=== PATIENT | female | born 1935 | race Caucasian/White ===

== ENCOUNTER 2017-11-18 14:26 | Emergency (ER) | payer MEDICARE, BC ==
[2017-11-18] MEDS: PERCOCET 5MG/325MG TAB PO (16:12)
== END 2017-11-18 17:13 | disposition home or self-care (01) ==
LOC: M ED 14:26
DX: S22.42XA Multiple fractures of ribs, left side, initial encounter for closed fracture (principal); W01.198A Fall on same level from slipping, tripping and stumbling with subsequent striking against other object, initial encounter; Y92.89 Other specified places as the place of occurrence of the external cause; I10 Essential (primary) hypertension; E78.5 Hyperlipidemia, unspecified; K21.9 Gastro-esophageal reflux disease without esophagitis; J45.909 Unspecified asthma, uncomplicated; K22.70 Barrett's esophagus without dysplasia; F41.9 Anxiety disorder, unspecified; F32.9 Major depressive disorder, single episode, unspecified; Z79.899 Other long term (current) drug therapy; Z79.82 Long term (current) use of aspirin
CPT/HCPCS: 71101

== ENCOUNTER → 2018-06-17 | Outpatient (REF) | payer MEDICARE, BC ==
[~2018-06-17] MED LIST: /ESCI20TA OR; /PANT40TA OR; ALBU83IN INH; AMLO5TAB6 PO; ASPI81TA83 OR; ATIV0.5T OR; CETI10TA OR; CETI10TA PO; COZA100T OR; DULE200A IN; FISH100049 PO; FISH300C2 OR; FURO40TA2 PO; GLUC500T OR; LESC20CA OR; LEXA1TAB PO; LORA0.5T11 PO; NORV5TAB OR; PERC5TAB12 PO; PRESCAP PO; PRIL40CA OR; REME15TA OR; SING10TA31 OR; VENTAER IN; VESI10TA2 PO; VIT D 2000 PO; VITA30004 PO; XANA0.5T OR; XOPE1.252 IN; XOPENEX; ZOCO5TAB OR; Zebeta; [UNRECOGNIZED DRUG - OTHER]; [UNRECOGNIZED DRUG - OTHER]; [UNRECOGNIZED DRUG - OTHER] OR; omacor; saphris SL
== END ==
LOC: M LAB REF 16:56
PROVIDERS: ATTEND Internal Medicine
DX: J06.9 Acute upper respiratory infection, unspecified (principal)

== ENCOUNTER → 2018-10-11 | Outpatient (REF) | payer MEDICARE, BC ==
[~2018-10-11] MED LIST changes: -/ESCI20TA OR; -/PANT40TA OR; +LEXA1TAB2 OR; +PROT1TAB2 OR
[2018-10-11 18:56] LABS: INFLUENZA A AMPLIFICATION NEGATIVE (NEGATIVE); INFLUENZA B AMPLIFICATION NEGATIVE (NEGATIVE)
== END ==
LOC: M LAB REF 16:21
PROVIDERS: ATTEND Internal Medicine
DX: R05 Cough (principal)

== ENCOUNTER → 2019-01-09 | Outpatient (REF) | payer MEDICARE, BC ==
[2019-01-09 18:21] LABS: PERCENT SATURATION 10.5 % (13.2-45.0)
== END ==
LOC: M LAB REF 17:27
PROVIDERS: ATTEND Internal Medicine
DX: D64.9 Anemia, unspecified (principal)

== ENCOUNTER → 2019-05-22 | Outpatient (REF) | payer MEDICARE, BC | LOC: M LAB REF 11:37 | PROVIDERS: ATTEND Internal Medicine | DX: D72.829 Elevated white blood cell count, unspecified (principal) ==

== ENCOUNTER 2019-05-31 10:31 | Emergency (ER) | payer MEDICARE, BC ==
[2019-05-31] MEDS ORDERED: SPIR-10 (10:49)
[2019-05-31] MEDS ORDERED: QUET1TAB7 (10:49)
--- NOTE | 2019-05-31 13:00 | REP ---
Clinical: Trauma. Fall. Comparison: 09/19/2011 . Findings: Age-related atrophy and microvascular ischemic changes are appreciated. The ventricles and sulci are symmetric. Lobato-white differentiation is maintained. There is no evidence for acute intracranial hemorrhage, mass/mass effect, pathology or infarction. No extra-axial fluid collection. Calvarium is intact. Chronic sinus disease. Impression: Age related atrophy and microvascular ischemic changes. No acute intracranial hemorrhage, infarction, or mass/mass effect. Electronically Signed by Syed Hollis MD 05/31/2019 12:51 P
--- NOTE | 2019-05-31 13:02 | REP ---
Clinical: Trauma. Fall. Technique: Axial noncontrast images from the skull base to the thoracic inlet with coronal and sagittal re-formations. Findings: Alignment and lordosis maintained. No acute fracture / compression injury or subluxation. Early advanced multilevel degenerative disc osteophyte complexes are appreciated. Posterior elements and spinous processes are intact. Spinal canal is patent. Paravertebral soft tissues are normal. Impression: Multilevel degenerative spondylosis. No acute fracture / compression injury or subluxation. Electronically Signed by Syed Hollis MD 05/31/2019 12:53 P
[2019-05-31 13:09] LABS: BASO # 0.1 10^3/uL (0.0-0.2); BASO % 0.6 % (0.0-1.0); EOS # 0.3 10^3/uL (0.0-0.5); EOS % 2.6 % (0.0-3.0); HEMATOCRIT 44.1 % (36.0-47.0); HEMOGLOBIN 14.4 g/dl (12.0-15.5); LYMPH # 2.3 10^3/uL (1.5-5.0); LYMPH % 20.3 % (24.0-44.0); MEAN CORPUSCULAR HEMOGLOBIN 28.8 pg (27.0-33.0); MEAN CORPUSCULAR HGB CONC 32.7 g/dl (32.0-36.5); MEAN CORPUSCULAR VOLUME 88.2 fl (80.0-96.0); MONO # 1.1 10^3/uL (0.0-0.8); MONO % 9.4 % (0.0-5.0); NEUTROPHILS # 7.4 10^3/uL (1.5-8.5); NEUTROPHILS % 65.4 % (36.0-66.0); PLATELET COUNT, AUTOMATED 283 10^3/uL (150-450); WHITE BLOOD COUNT 11.3 10^3/uL (4.0-10.0)
[2019-05-31 13:28] LABS: ALBUMIN 3.6 GM/DL (3.2-5.2); ALT/SGPT 20 U/L (12-78); BILIRUBIN,TOTAL 0.4 MG/DL (0.2-1.0); BLOOD UREA NITROGEN 9 MG/DL (7-18); CALCIUM LEVEL 9.4 MG/DL (8.8-10.2); CARBON DIOXIDE LEVEL 25 MEQ/L (21-32); CHLORIDE LEVEL 96 MEQ/L (98-107); GLOMERULAR FILTRATION RATE > 60.0 (>32); GLUCOSE, FASTING 109 MG/DL (70-100); POTASSIUM SERUM 4.4 MEQ/L (3.5-5.1); SODIUM LEVEL 131 MEQ/L (136-145); TOTAL PROTEIN 6.9 GM/DL (6.4-8.2)
[2019-05-31 14:02] VITALS: BP 150/72
--- NOTE | 2019-06-01 15:29 | ECGEPIP ---
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
== END 2019-05-31 14:17 | disposition home or self-care (01) ==
LOC: M ED 10:31 → EDSEX 10:31 → EDBD 10:31 → M ED 14:17
DX: R55 Syncope and collapse (principal); I44.0 Atrioventricular block, first degree; I67.82 Cerebral ischemia; M47.9 Spondylosis, unspecified; I10 Essential (primary) hypertension; J45.909 Unspecified asthma, uncomplicated; E78.5 Hyperlipidemia, unspecified; K21.9 Gastro-esophageal reflux disease without esophagitis; Z79.1 Long term (current) use of non-steroidal anti-inflammatories (NSAID); Z79.51 Long term (current) use of inhaled steroids; Z79.52 Long term (current) use of systemic steroids; Z79.899 Other long term (current) drug therapy

== ENCOUNTER → 2019-07-16 | Outpatient (REF) | payer MEDICARE, BC ==
[~2019-07-16] MED LIST changes: -LORA0.5T11 PO; +LORA0.5T5 PO; +QUET1TAB7; +SPIR-10
[2019-07-16 16:05] LABS: BASO # 0.1 10^3/uL (0.0-0.2); BASO % 0.6 % (0.0-1.0); EOS # 0.4 10^3/uL (0.0-0.5); EOS % 3.3 % (0.0-3.0); HEMATOCRIT 45.1 % (36.0-47.0); HEMOGLOBIN 14.5 g/dl (12.0-15.5); LYMPH # 2.3 10^3/uL (1.5-5.0); LYMPH % 21.5 % (24.0-44.0); MEAN CORPUSCULAR HEMOGLOBIN 29.3 pg (27.0-33.0); MEAN CORPUSCULAR HGB CONC 32.2 g/dl (32.0-36.5); MEAN CORPUSCULAR VOLUME 91.1 fl (80.0-96.0); MONO % 9.1 % (0.0-5.0); NEUTROPHILS # 6.8 10^3/uL (1.5-8.5); NEUTROPHILS % 64.5 % (36.0-66.0); PLATELET COUNT, AUTOMATED 281 10^3/uL (150-450); RED BLOOD COUNT 4.95 10^6/uL (4.00-5.40); WHITE BLOOD COUNT 10.6 10^3/uL (4.0-10.0)
[2019-07-16 16:38] LABS: ALBUMIN 3.7 GM/DL (3.2-5.2); ALT/SGPT 18 U/L (12-78); BILIRUBIN,TOTAL 0.5 MG/DL (0.2-1.0); BLOOD UREA NITROGEN 12 MG/DL (7-18); CALCIUM LEVEL 9.4 MG/DL (8.8-10.2); CARBON DIOXIDE LEVEL 27 MEQ/L (21-32); CHLORIDE LEVEL 98 MEQ/L (98-107); CREATININE FOR GFR 0.76 MG/DL (0.55-1.30); FOLATE 13.3 NG/ML; GLOMERULAR FILTRATION RATE > 60.0 (>32); GLUCOSE, FASTING 108 MG/DL (70-100); POTASSIUM SERUM 4.1 MEQ/L (3.5-5.1); RHEUMATOID FACTOR QUANT < 10.0 IU/ML (<15.0); SODIUM LEVEL 136 MEQ/L (136-145); TOTAL PROTEIN 7.2 GM/DL (6.4-8.2); VITAMIN B12 LEVEL 382 PG/ML
[2019-07-16 17:01] LABS: ERYTHROCYTE SEDIMENTATION RATE 5 mm/hr (0-30)
[2019-07-17 12:08] LABS: ALBUMIN 3.92 GM/DL (3.29-5.55); ALBUMIN % 54.4 % (55.8-66.1); ALPHA-1-GLOBULIN % 4.6 % (2.9-4.9); ALPHA-1-GLOBULINS 0.33 GM/DL (0.17-0.41); ALPHA-2-GLOBULINS 1.03 GM/DL (0.42-0.99); ALPHA-2-GLOBULINS % 14.3 % (7.1-11.8); BETA-1-GLOBULINS 0.44 GM/DL (0.28-0.60); BETA-1-GLOBULINS % 6.1 % (4.7-7.2); BETA-2-GLOBULINS 0.48 GM/DL (0.19-0.55); BETA-2-GLOBULINS % 6.6 % (3.2-6.5)
[2019-07-17 12:09] LABS: GAMMA GLOBULINS 1.01 GM/DL (0.65-1.58)
== END ==
LOC: M LABNEURO 10:28
PROVIDERS: ATTEND Psychiatry & Neurology Neurology
DX: G90.09 Other idiopathic peripheral autonomic neuropathy (principal); Z79.899 Other long term (current) drug therapy

== ENCOUNTER 2019-07-28 21:31 | Emergency (ER) | payer MEDICARE, BC ==
[~2019-07-28] VITALS: Ht 154.9 cm; Wt 72.7 kg
[2019-07-28] MEDS ORDERED: ONDANSETRON 4MG/2ML VIAL (J2405) IV ONE (23:00)
[2019-07-28 23:25] LABS: BASO # 0.1 10^3/uL (0.0-0.2); BASO % 0.7 % (0.0-1.0); EOS # 0.6 10^3/uL (0.0-0.5); EOS % 5.4 % (0.0-3.0); HEMATOCRIT 40.5 % (36.0-47.0); LYMPH # 2.7 10^3/uL (1.5-5.0); LYMPH % 24.1 % (24.0-44.0); MEAN CORPUSCULAR HEMOGLOBIN 28.8 pg (27.0-33.0); MEAN CORPUSCULAR HGB CONC 32.1 g/dl (32.0-36.5); MEAN CORPUSCULAR VOLUME 89.8 fl (80.0-96.0); MONO # 1.1 10^3/uL (0.0-0.8); MONO % 9.9 % (0.0-5.0); NEUTROPHILS # 6.5 10^3/uL (1.5-8.5); NEUTROPHILS % 58.6 % (36.0-66.0); PLATELET COUNT, AUTOMATED 250 10^3/uL (150-450); RED BLOOD COUNT 4.51 10^6/uL (4.00-5.40); WHITE BLOOD COUNT 11.1 10^3/uL (4.0-10.0)
[2019-07-28 23:46] LABS: ALBUMIN 3.4 GM/DL (3.2-5.2); ALT/SGPT 15 U/L (12-78); BILIRUBIN,DIRECT 0.2 MG/DL (0.0-0.2); BILIRUBIN,TOTAL 0.4 MG/DL (0.2-1.0); BLOOD UREA NITROGEN 18 MG/DL (7-18); CALCIUM LEVEL 9.5 MG/DL (8.8-10.2); CARBON DIOXIDE LEVEL 29 MEQ/L (21-32); CHLORIDE LEVEL 97 MEQ/L (98-107); CK-MB VALUE MASS < 1.0 NG/ML (<3.6); CPK CREATINE PHOSPHOKINASE 51 U/L (26-192); CREATININE FOR GFR 0.84 MG/DL (0.55-1.30); GLOMERULAR FILTRATION RATE > 60.0 (>32); GLUCOSE, FASTING 110 MG/DL (70-100); LIPASE 36 U/L (73-393); MB/CK RELATIVE INDEX 1.96 (< OR =4); POTASSIUM SERUM 3.4 MEQ/L (3.5-5.1); SODIUM LEVEL 134 MEQ/L (136-145); TOTAL PROTEIN 6.7 GM/DL (6.4-8.2); TROPONIN I < 0.02 NG/ML (< 0.10)
[2019-07-29 03:53] VITALS: BP 152/70
--- NOTE | 2019-07-29 05:58 | ECGEPIP ---
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
[2019-07-29] MEDS ORDERED: OCUVTAB4 PO (15:48)
[2019-07-29] MEDS ORDERED: FURO40TA2 PO (15:48)
[2019-07-29] MEDS ORDERED: VITA30004 PO (15:48)
[2019-07-29] MEDS ORDERED: ESCI20TA PO (15:48)
[2019-07-29] MEDS ORDERED: LEXA5TAB13 PO (15:48)
[2019-07-29] MEDS ORDERED: ALB2.5NEB NEB (15:48)
[2019-07-29] MEDS ORDERED: REME15TA PO (15:48)
[2019-07-29] MEDS ORDERED: OMEP-221 PO (15:48)
[2019-07-29] MEDS ORDERED: MONT10TA4 PO (15:48)
[2019-07-29] MEDS ORDERED: VESI10TA2 PO (15:48)
[2019-07-29] MEDS ORDERED: SIMV20TA22 PO (15:48)
[2019-07-29] MEDS ORDERED: VALS1TAB67 PO (15:48)
[2019-07-29] MEDS ORDERED: ASPI81TA85 PO (15:48)
[2019-07-29] MEDS ORDERED: COLA100C5 PO (15:59)
[2019-07-29] MEDS ORDERED: AMLO2.5T3 PO (15:59)
[2019-07-29] MEDS ORDERED: MIRA3350 PO (15:59)
[2019-07-29] MEDS ORDERED: NYST1POW9 TOP (15:59)
[2019-07-29] MEDS ORDERED: VENTAER INH (15:59)
[2019-07-29] MEDS ORDERED: SPIR-10 PO (15:59)
[2019-07-29] MEDS ORDERED: LORA0.5T5 PO (15:59)
[2019-07-29] MEDS ORDERED: SERO50TA4 PO (15:59)
[2019-07-29] MEDS ORDERED: ASPE4LIQ TOP (15:59)
[2019-07-29] MEDS ORDERED: SYST1SOL OU (15:59)
[2019-07-29] MEDS ORDERED: ACET1TAB55 PO (15:59)
[2019-07-29] MEDS ORDERED: FERR32TA PO (15:59)
[2019-07-29] MEDS ORDERED: EX-L15TA PO (15:59)
[2019-07-29] MEDS ORDERED: ALL10TAB29 PO (15:59)
[2019-07-29] MEDS ORDERED: META28.32 PO (15:59)
[2019-07-29] MEDS ORDERED: DULE200A INH (15:59)
== END 2019-07-29 03:55 | disposition home or self-care (01) ==
LOC: M ED 21:31
DX: R10.9 Unspecified abdominal pain (principal); I11.9 Hypertensive heart disease without heart failure; K21.9 Gastro-esophageal reflux disease without esophagitis; Z79.51 Long term (current) use of inhaled steroids; Z79.82 Long term (current) use of aspirin; Z79.899 Other long term (current) drug therapy

== ENCOUNTER 2019-07-29 14:57 | Inpatient (IN) | payer MEDICARE, BC ==
[~2019-07-29] VITALS: Ht 160 cm; Wt 70.1 kg
[2019-07-29] MEDS ORDERED: ALB2.5NEB NEB (15:48)
[2019-07-29] MEDS ORDERED: MONT10TA4 PO (15:48)
[2019-07-29] MEDS ORDERED: VESI10TA2 PO (15:48)
[2019-07-29] MEDS ORDERED: SIMV20TA22 PO (15:48)
[2019-07-29] MEDS ORDERED: VITA30004 PO (15:48)
[2019-07-29] MEDS ORDERED: ESCI20TA PO (15:48)
[2019-07-29] MEDS ORDERED: OMEP-221 PO (15:48)
[2019-07-29] MEDS ORDERED: REME15TA PO (15:48)
[2019-07-29] MEDS ORDERED: OCUVTAB4 PO (15:48)
[2019-07-29] MEDS ORDERED: LEXA5TAB13 PO (15:48)
[2019-07-29] MEDS ORDERED: FURO40TA2 PO (15:48)
[2019-07-29] MEDS ORDERED: VALS1TAB67 PO (15:48)
[2019-07-29] MEDS ORDERED: ASPI81TA85 PO (15:48)
[2019-07-29] MEDS ORDERED: EX-L15TA PO (15:59)
[2019-07-29] MEDS ORDERED: DULE200A INH (15:59)
[2019-07-29] MEDS ORDERED: VENTAER INH (15:59)
[2019-07-29] MEDS ORDERED: NYST1POW9 TOP (15:59)
[2019-07-29] MEDS ORDERED: ALL10TAB29 PO (15:59)
[2019-07-29] MEDS ORDERED: SPIR-10 PO (15:59)
[2019-07-29] MEDS ORDERED: META28.32 PO (15:59)
[2019-07-29] MEDS ORDERED: SYST1SOL OU (15:59)
[2019-07-29] MEDS ORDERED: COLA100C5 PO (15:59)
[2019-07-29] MEDS ORDERED: ASPE4LIQ TOP (15:59)
[2019-07-29] MEDS ORDERED: LORA0.5T5 PO (15:59)
[2019-07-29] MEDS ORDERED: AMLO2.5T3 PO (15:59)
[2019-07-29] MEDS ORDERED: MIRA3350 PO (15:59)
[2019-07-29] MEDS ORDERED: FERR32TA PO (15:59)
[2019-07-29] MEDS ORDERED: ACET1TAB55 PO (15:59)
[2019-07-29] MEDS ORDERED: SERO50TA4 PO (15:59)
[2019-07-29 16:21] LABS: HEMATOCRIT 43.7 % (36.0-47.0); HEMOGLOBIN 14.4 g/dl (12.0-15.5); MEAN CORPUSCULAR HEMOGLOBIN 29.2 pg (27.0-33.0); MEAN CORPUSCULAR VOLUME 88.6 fl (80.0-96.0); PLATELET COUNT, AUTOMATED 300 10^3/uL (150-450); RED BLOOD COUNT 4.93 10^6/uL (4.00-5.40); WHITE BLOOD COUNT 11.4 10^3/uL (4.0-10.0)
[2019-07-29 16:56] LABS: ACETAMINOPHEN LEVEL < 2.0 UG/ML (10.0-30.0); ALBUMIN 3.7 GM/DL (3.2-5.2); ALT/SGPT 18 U/L (12-78); BILIRUBIN,DIRECT 0.2 MG/DL (0.0-0.2); BILIRUBIN,TOTAL 0.5 MG/DL (0.2-1.0); BLOOD UREA NITROGEN 14 MG/DL (7-18); CALCIUM LEVEL 9.7 MG/DL (8.8-10.2); CARBON DIOXIDE LEVEL 29 MEQ/L (21-32); CHLORIDE LEVEL 100 MEQ/L (98-107); CREATININE FOR GFR 0.73 MG/DL (0.55-1.30); ETHYL ALCOHOL (ETHANOL) < 0.003 % (0.000-0.010); GLOMERULAR FILTRATION RATE > 60.0 (>32); GLUCOSE, FASTING 111 MG/DL (70-100); POTASSIUM SERUM 3.9 MEQ/L (3.5-5.1); SALICYLATE LEVEL < 1.7 MG/DL (5.0-30.0); SODIUM LEVEL 135 MEQ/L (136-145); TOTAL PROTEIN 7.2 GM/DL (6.4-8.2)
[2019-07-29] MEDS ORDERED: ACETAMINOPHEN TAB 650MG DOSE (2X325MG) PO PRN (18:45)
[2019-07-29] MEDS ORDERED: MOM 30ML SUSPENSION UDC PO PRN (18:45)
[2019-07-29] MEDS ORDERED: MAALOX 30 ML SUSP *UDC PO PRN (18:45)
[2019-07-29] MEDS ORDERED: ESCITALOPRAM OXALATE 10 MG TAB (LEXAPRO) PO SCH (21:00)
[2019-07-29] MEDS ORDERED: ESCITALOPRAM OXALATE 5MG TABLET (LEXAPRO) PO SCH (21:00)
[2019-07-29] MEDS ORDERED: MIRTAZAPINE 15 MG TAB PO SCH (21:00)
[2019-07-29] MEDS ORDERED: QUEtiapine FUMERATE XR 50 MG TABER PO SCH (21:00)
[2019-07-29] MEDS ORDERED: ALBUTEROL 90 MCG/ACT 8GM HFA INHALER INH PRN (23:00)
[2019-07-29] MEDS ORDERED: NYSTATIN 100,000 UNITS/GM TOPICAL PWD 15 GM TOP PRN (23:00)
[2019-07-29 23:15] VITALS: BP 144/67
[2019-07-29] MEDS: MONTELUKAST 10 MG TAB PO SCH (23:36)
[2019-07-29] MEDS: CETIRIZINE (ZyrTEC) 10 MG TAB PO SCH (23:36)
[2019-07-29] MEDS: DOCUSATE SODIUM 100 MG CAP PO SCH (23:37)
[2019-07-29] MEDS: SIMVASTATIN 20 MG TAB PO SCH (23:37)
[2019-07-29] MEDS: VALSARTAN 80 MG TAB (DIOVAN) PO SCH (23:38)
[2019-07-30 06:53] VITALS: BP 140/70
[2019-07-30] MEDS: MIRALAX *UNIT DOSE* 17GM PACKET PO SCH (09:45)
[2019-07-30] MEDS: METAMUCIL (PSYLLIUM) PACKET PO SCH (09:45)
--- NOTE | 2019-07-30 09:45 | MHHPEPDOC ---
[facility] History & Physical History and Physical DATE OF ADMISSION: Jul 29, 2019 at 18:39 Corazon Parekh New Patient Corazon Parekh Select Gender MRN: N/A Date of : MM/DD/YYYY Date of Service: 07/30/2019 Chief Complaint "I don't know." History of Present Illness The patient is an 83-year-old woman with a reported history of severe depression with psychotic features, presents to [facility] reporting decompensated depression and unusual somatic preoccupation. The patient was referred from the outpatient [facility]. When the patient was evaluated she was a very poor historian, she was generally highly anxious, staring at this provider, unable to discuss a majority of her symptoms. After some prompting, she was able to describe some feelings of depression and memory difficulties. Review Of Systems Unable to engage in a full and comprehensive review systems due to patient's mental status. Past Psychiatric History Has multiple inpatient admissions, last in 2011 with a history of depression, currently treated with Lexapro and Seroquel. Follows up with [facility]. Allergies Please see below. Family Psychiatric History Unable to determine due to patient's mental status. Social History The patient currently [facility] She is reportedly at this time. Much of her social information is difficult to gain at this time due to her mental status. Substance Abuse History Does not appear to have a history of substance use, toxicology negative. Medical History Has a history of diabetes and multiple autoimmune conditions. Mental Status Examination General: Well dressed with good hygiene Speech: Only answers questions Thought processes: Linear at times MSK: Some shakiness; however, no tremors Thought content: Unknown Abstract reasoning, and computation: Impaired Description of associations: Impaired Description of abnormal or psychotic thoughts: Unknown Judgment: Impaired Insight: Impaired Orientation: Appears alert to my presence and is able to converse at times Cognition: Impaired Recent and remote memory: Impaired Attention span and concentration: Impaired Fund of knowledge: Unknown Mood: "okay" Affect: Highly anxious and dysthymic Diagnoses MDD, recurrent, severe with psychotic symptoms. Unspecified neurocognitive disorder. Assessment and Plan MDD: Will cross titrate Lexapro with Effexor, decreasing to a total of 15 QHS tonight and starting 37.5 mg tomorrow, discussed with patient potential risks and benefits as well as alternatives. Will discontinue mirtazapine as likely not helpful, start Rozerem 8 mg as better indicated in individuals who are elderly. Discontinue Seroquel, is likely impairing. Unspecified neurocognitive disorder: Will attempt to reduce anti-cholinergic load and to ascertain once depression is better controlled. Disposition The patient will need a further inpatient admission due to her severely impairing depression and psychosis. Problem List 1. Altered thoughts. Initial Treatment Plan 1. Patient was admitted on a 02.14 legal status. 2. Complete history was obtained. 3. With patients permission, family will be contacted and database will be expanded. 4. Patients medication regimen will be reviewed and changed accordingly. 5. Patient will be provided with protected environment. 6. Patient will be treated with individual, group, and milieu therapies. 7. Patient will receive supportive psych-education. 8. Discharge planning will commence immediately. 9. Outpatient follow-up treatment will be strongly recommended. 10. The initial treatment plan will focus initially on: Estimated Length Of Stay 4 days. Time Spent 70 minutes with greater than 50% of time on counseling/coordination of care. Vital Signs Vital Signs Date Time Temp Pulse Resp B/P (MAP) Pulse Ox O2 Delivery O2 Flow Rate FiO2 07/30/19 08:16 Room Air 07/30/19 06:53 98.5 83 16 140/70 (93) 07/29/19 19:15 95 Laboratory Data 24H Labs Laboratory Tests 2 07/29/19 16:06: Nucleated Red Blood Cells % (auto) 0.0, Anion Gap 6L, Glomerular Filtration Rate > 60.0, Calcium Level 9.7, Total Bilirubin 0.5, Direct Bilirubin 0.2, Aspartate Amino Transf (AST/SGOT) 18, Alanine Aminotransferase (ALT/SGPT) 18, Alkaline Phosphatase 87, Total Protein 7.2, Albumin 3.7, Albumin/Globulin Ratio 1.06, Thyroid Stimulating Hormone (TSH) 3.970H, Salicylates Level < 1.7L, Acetaminophen Level < 2.0L, Ethyl Alcohol Level < 0.003 CBC/BMP Laboratory Tests 07/29/19 16:06 Medications Scheduled Amlodipine Besylate (Amlodipine Besylate) 2.5 Mg Tablet, 2.5 MG PO DAILY, (Reported) Aspirin (Aspir 81) 81 Mg Tablet.dr, 81 MG PO DAILY, (Reported) Cetirizine HCl (Cetirizine HCl) 10 Mg Tablet, 10 MG PO QHS, (Reported) Cholecalciferol (Vitamin D3) (Vitamin D3) 3,000 Unit Tablet, 3,000 UNIT PO DAILY, (Reported) Docusate Sodium (Colace) 100 Mg Capsule, 100 MG PO BID, (Reported) Escitalopram Oxalate (Escitalopram Oxalate) 20 Mg Tablet, 20 MG PO QHS, (Reported) TAKES WITH 5MG DOSE FOR TOTAL OF 25MG DAILY Escitalopram Oxalate (Lexapro) 5 Mg Tablet, 5 MG PO QHS, (Reported) TAKES WITH 20MG DOSE FOR TOTAL OF 25MG DAILY Ferrous Gluconate (Ferrous Gluconate) 324 Mg Tablet, 324 MG PO Q2D, (Reported) Furosemide (Furosemide) 40 Mg Tablet, 40 MG PO DAILY, (Reported) Lidocaine HCl (Aspercreme Lidocaine) 73 Ml Liqd.kelly, 1 APLCT TOP DAILY, (R eported) APPLY TO TOES Mirtazapine (Remeron) 15 Mg Tablet, 15 MG PO QHS, (Reported) Montelukast Sodium (Montelukast Sodium) 10 Mg Tablet, 10 MG PO QHS, (Reported) Omeprazole (Omeprazole) 40 Mg Capsule.dr, 40 MG PO BID, (Reported) Polyethylene Glycol 3350 (Miralax) 119 Gm Powder, 17 GM PO DAILY, (Reported) dilute in 8 ounces of water or juice Propylene Glycol/Peg 400 (Systane 0.3-0.4% Eye Drops) 15 Ml Drops, 1 DROP OU BID, (Reported) Psyllium Husk (with Sugar) (Metamucil Powder) 575 Gm Powder, 1 TSP PO DAILY, (Reported) MIXED WITH 8 OZ OF LIQUID Quetiapine Fumarate (Seroquel Xr) 50 Mg Tab.er.24h, 100 MG PO QHS, (Reported) Simvastatin (Simvastatin) 20 Mg Tablet, 20 MG PO QHS, (Reported) Solifenacin Succinate (Vesicare) 10 Mg Tablet, 10 MG PO DAILY, (Reported) Spironolactone (Spironolactone) 25 Mg Tablet, 12.5 MG PO DAILY, (Reported) Valsartan (Valsartan) 160 Mg Tablet, 160 MG PO QHS, (Reported) Vit A/Vit C/Vit E/Zinc/Copper (Preservision Areds Tablet) 1 Each Tablet, 1 TAB PO DAILY, (Reported) Scheduled PRN Acetaminophen (Acetaminophen) 325 Mg Tablet, 650 MG PO Q6H PRN for PAIN, (Reported) Albuterol Sulfate (Albuterol Sulfate) 2.5 Mg/0.5 Ml Vial.neb, 1 VIAL NEB QID PRN for SHORTNESS OF BREATH, (Reported) Albuterol Sulfate (Ventolin Hfa) 18 Gm Hfa.aer.ad, 2 PUFF INH Q4H PRN for SOB/WHEEZING, (Reported) Lorazepam (Lorazepam) 0.5 Mg Tablet, 0.25 MG PO BID PRN for ANXIETY, (Reported) Mometasone/Formoterol (Dulera 200 Mcg/5 Mcg Inhaler) 13 Gm Hfa.aer.ad, 2 PUFF INH BID PRN for COPD, (Reported) Nystatin (Nystatin Powder) 15 Gm Powder, 1 APLCT TOP BID PRN for RASH, (Reported) APPLY UNDER BREATS AND GROIN Sennosides (Ex-Lax) 15 Mg Tablet, 15 MG PO Q2D PRN for CONSTIPATION, (Reported) Allergies Coded Allergies: No Known Allergies (Verified , 06/08/09) A-FIB/CHADSVASC A-FIB History Current/History of A-Fib/PAF?: No (unknown please see medical h/p) DERECK CAMP DO Jul 30, 2019 09:45
[2019-07-30] MEDS: OCUVITE 1 TAB PO SCH (09:46)
[2019-07-30] MEDS: SPIRONOLACTONE 12.5MG PER 1/2 TABLET PO SCH (09:46)
[2019-07-30] MEDS: SOLIFENACIN 5 MG TAB PO SCH (09:46)
[2019-07-30] MEDS: FUROSEMIDE 40 MG TAB PO SCH (09:46)
[2019-07-30] MEDS: FERROUS GLUCONATE 324 MG TAB PO SCH (09:46)
[2019-07-30] MEDS: VITAMIN D 1,000 INTERNATIONAL UNITS TABLET PO SCH (09:46)
[2019-07-30] MEDS: POLYVINYL ALCOHOL OPHTH SOLN 15 ML(LIQUITEARS) OU SCH ×2 (09:47→21:28)
[2019-07-30] MEDS: ASPIRIN 81 MG ENTERIC TAB PO SCH (09:47)
[2019-07-30] MEDS: DOCUSATE SODIUM 100 MG CAP PO SCH ×2 (09:47→21:29)
[2019-07-30] MEDS: LORazepam 0.5 MG TAB PO PRN (14:45)
[2019-07-30 14:46] VITALS: BP 151/68
[2019-07-30 16:00] VITALS: BP 123/60
[2019-07-30 21:07] VITALS: BP 121/60
[2019-07-30] MEDS: RAMELTEON 8 MG TAB (ROZEREM) PO SCH (21:29)
[2019-07-30] MEDS: CETIRIZINE (ZyrTEC) 10 MG TAB PO SCH (21:29)
[2019-07-30] MEDS: MONTELUKAST 10 MG TAB PO SCH (21:29)
[2019-07-30] MEDS: ESCITALOPRAM OXALATE 5MG TABLET (LEXAPRO) PO SCH (21:32)
[2019-07-30] MEDS: VALSARTAN 80 MG TAB (DIOVAN) PO SCH (21:32)
[2019-07-30] MEDS: SIMVASTATIN 20 MG TAB PO SCH (21:39)
[2019-07-31 06:36] VITALS: BP 134/70
--- NOTE | 2019-07-31 08:48 | MHIPNPDOC ---
[facility] Progress Note Progress Note Corazon Parekh Inpatient Progress Note Corazon Parekh Select Gender MRN: N/A Date of : MM/DD/YYYY Date of Service: 07/31/2019 History of Present Illness The patient is an 83-year-old woman with a reported history of severe depression with psychotic features, presents to [facility] reporting decompensated depression and unusual somatic preoccupation. The patient was referred from the outpatient [facility]. When the patient was evaluated she was a very poor historian, she was generally highly anxious, staring at this provider, unable to discuss a majority of her symptoms. After some prompting, she was able to describe some feelings of depression and memory difficulties. Interval History Narrative: The patient is attempted to be met with today, she is very sleepy, only staring at this provider when attempted to be gotten for interview. Affective: Unknown. Psychotic: The patient generally confused at times. Anxiety: Unknown. Eating and sleeping behaviors: Patient appears to eat well, however her sleeping is disrupted with much sleeping at night and staying awake in the evening. Group Attendance: Few. Medication Side effects: See ROS below Behavioral problems/significant events overnight: None reported. Staff Report: Patient generally unusual, speaks very little. Review Of Systems Unable to obtain due to sedation. Psychotherapy None on this visit. Vital Signs Reviewed. Mental Status Examination General: Well dressed with good hygiene Speech: Mute. Thought processes: Linear at times MSK: Some shakiness; however, no tremors Thought content: Unknown Abstract reasoning, and computation: Impaired Description of associations: Impaired Description of abnormal or psychotic thoughts: Unknown Judgment: Impaired Insight: Impaired Orientation: Appears alert to my presence and is able to converse at times Cognition: Impaired Recent and remote memory: Impaired Attention span and concentration: Impaired Fund of knowledge: Unknown Mood: "" Affect: Flat and bizarre. Diagnoses MDD, recurrent, severe with psychotic symptoms. Unspecified neurocognitive disorder. Assessment and Plan MDD: Continue cross taper with Lexapro 15 mg QHS, and Effexor 37.5 mg extended release daily. Unspecified neurocognitive disorder: Will attempt to reduce anti-cholinergic load and to ascertain once depression is better controlled. Disposition The patient will need a further inpatient admission due to her severely impairing depression and psychosis. Time Spent 15 minutes. Vital Signs Vital Signs Date Time Temp Pulse Resp B/P (MAP) Pulse Ox O2 Delivery O2 Flow Rate FiO2 07/31/19 06:36 98.2 88 16 134/70 (91) 07/30/19 08:16 Room Air 07/29/19 19:15 95 Current Medications Current Medications Medications (Trade) Dose Ordered Sig/Maura Route PRN Reason Start Time Stop Time Status Last Admin Dose Admin Acetaminophen (Tylenol Tab) 650 mg Q6HP PRN PO HEADACHE or DISCOMFORT 07/29/19 18:45 Al Hydrox/Mg Hydrox/Simethicone (Mylanta) 30 ml Q4HP PRN PO HEARTBURN/INDIGESTION 07/29/19 18:45 Albuterol Sulfate (Proventil, Ventolin Hfa) 2 puff Q4HP PRN INH SOB/WHEEZING 07/29/19 23:00 Amlodipine Besylate (Norvasc) 2.5 mg DAILY PO 07/30/19 09:00 07/30/19 09:46 Artificial Tears (Akwa Tears) 1 drop BID OU 07/30/19 09:00 07/30/19 21:28 Aspirin (Ecotrin) 81 mg DAILY PO 07/30/19 09:00 07/30/19 09:47 Cetirizine HCl (ZyrTEC) 10 mg QHS PO 07/29/19 21:00 07/30/19 21:29 Docusate Sodium (Colace) 100 mg BID PO 07/29/19 21:00 07/30/19 21:29 Escitalopram Oxalate (Lexapro) 5 mg QHS PO 07/29/19 21:00 07/30/19 13:30 DC 07/29/19 23:36 Escitalopram Oxalate (Lexapro) 15 mg QHS PO 07/30/19 21:00 07/30/19 21:32 Escitalopram Oxalate (Lexapro) 20 mg QHS PO 07/29/19 21:00 07/30/19 13:30 DC 07/29/19 23:36 Ferrous Gluconate (Fergon) 324 mg Q2D PO 07/30/19 09:00 07/30/19 09:46 Furosemide (Lasix) 40 mg DAILY PO 07/30/19 09:00 07/30/19 09:46 Home Med (Med Rec Complete!) ASDIRECTED XX 07/29/19 16:15 07/29/19 16:03 DC Lorazepam (Ativan) 0.25 mg BID PRN PO ANXIETY 07/29/19 23:00 07/30/19 14:45 Magnesium Hydroxide (Milk Of Magnesia) 30 ml DAILYPRN PRN PO CONSTIPATION 07/29/19 18:45 Mirtazapine (Remeron) 15 mg QHS PO 07/29/19 21:00 07/30/19 13:30 DC 07/29/19 23:36 Montelukast Sodium (Singulair) 10 mg QHS PO 07/29/19 21:00 07/30/19 21:29 Multivitamins (Ocuvite(I-Flores)) 1 tab DAILY PO 07/30/19 09:00 07/30/19 09:46 Nystatin (Mycostatin Powder, Nystop) UNDER BREASTS & TO GR... BIDP PRN TOP RASH 07/29/19 23:00 Polyethylene Glycol (Miralax) 1 pkt DAILY PO 07/30/19 09:00 07/30/19 09:45 Psyllium Hydrophilic Mucilloid (Metamucil) 1 pkt DAILY PO 07/30/19 09:00 07/30/19 09:45 Quetiapine Fumarate (Seroquel Xr) 100 mg QHS PO 07/29/19 21:00 07/30/19 13:30 DC 07/29/19 23:36 Ramelteon (Rozerem) 8 mg QHS PO 07/30/19 21:00 07/30/19 21:29 Simvastatin (Zocor) 20 mg QHS PO 07/29/19 21:00 07/30/19 21:39 Solifenacin (Vesicare) 10 mg DAILY PO 07/30/19 09:00 07/30/19 09:46 Spironolactone (Aldactone) 12.5 mg DAILY PO 07/30/19 09:00 07/30/19 09:46 Trazodone HCl (Desyrel) 50 mg QHSP PRN PO INSOMNIA 07/29/19 18:45 Valsartan (Diovan) 160 mg QHS PO 07/29/19 21:00 07/30/19 21:32 Vitamin D (Vitamin D) 3,000 units DAILY PO 07/30/19 09:00 07/30/19 09:46 Allergies Coded Allergies: No Known Allergies (Verified , 06/08/09) DERECK CAMP DO Jul 31, 2019 08:48
[2019-07-31] MEDS: MIRALAX *UNIT DOSE* 17GM PACKET PO SCH (09:00)
[2019-07-31] MEDS: [UNRECOGNIZED DRUG - OTHER] INH SCH ×2 (09:00→21:00)
[2019-07-31] MEDS: METAMUCIL (PSYLLIUM) PACKET PO SCH (09:00)
[2019-07-31] MEDS: VITAMIN D 1,000 INTERNATIONAL UNITS TABLET PO SCH (10:14)
[2019-07-31] MEDS: FUROSEMIDE 40 MG TAB PO SCH (10:14)
[2019-07-31] MEDS: OCUVITE 1 TAB PO SCH (10:14)
[2019-07-31] MEDS: ASPIRIN 81 MG ENTERIC TAB PO SCH (10:15)
[2019-07-31] MEDS: SOLIFENACIN 5 MG TAB PO SCH (10:15)
[2019-07-31] MEDS: DOCUSATE SODIUM 100 MG CAP PO SCH ×2 (10:16→21:03)
[2019-07-31] MEDS: POLYVINYL ALCOHOL OPHTH SOLN 15 ML(LIQUITEARS) OU SCH ×2 (10:16→21:02)
[2019-07-31] MEDS: SPIRONOLACTONE 12.5MG PER 1/2 TABLET PO SCH (10:16)
--- NOTE | 2019-07-31 17:26 | HPEPDOC ---
[facility] Medical History & Physical Date of Admission Jul 31, 2019 Date of Service: Jul 31, 2019 Attending Physician: OLEG ELIZONDO MD History and Physical CHIEF COMPLAINT: Admitted to patient positive for depression HISTORY OF PRESENT ILLNESS: [83-year-old female with past medical history of diabetes, hypertension, hyperlipidemia and COPD there is admitted to inpatient mental health unit for depression. Patient reports increased stress and worsening depression over the past few weeks. She has no medical complaints at this time, denies any short of breath, chest pain, nausea, vomiting, abdominal pain or diarrhea. 10 point review of system is negative except for above PAST MEDICAL HISTORY: 1. Hypertension. 2. COPD. 3. Diabetes mellitus. 4. Hyperlipidemia. 5. Depression PAST SURGICAL HISTORY: 1. Hysterectomy. 2. Cholecystectomy. SOCIAL HISTORY: Previous smoker. Social alcohol use Denies drug use FAMILY HISTORY: Positive for heart disease ALLERGIES: Please see below. HOME MEDICATIONS: Please see below. PHYSICAL EXAMINATION: VITAL SIGNS: Please see below. GENERAL: No distress HEENT: Normocephalic, atraumatic, moist mucous membranes NECK: Supple CARDIOVASCULAR EXAMINATION: S1, S2, no murmurs RESPIRATORY EXAMINATION: Diminished in the bases, no wheezing ABDOMINAL EXAMINATION: Soft, nontender, nondistended, positive bowel sounds EXTREMITIES: Range of motion intact SKIN: No rash NEUROLOGICAL EXAMINATION: Alert and oriented 3, no focal deficits PSYCHIATRIC EXAMINATION: Calm and cooperative LABORATORY DATA: See below. MICROBIOLOGY: Please see below. ASSESSMENT: 83-year-old female multiple medical comorbidities admitted to inpatient mental health unit for worsening depression. . PLAN: 1. Depression/psychosis. Management as per primary team 2. Medical comorbidities. Diabetes mellitus/hypertension/hyperlipidemia/COPD stable, continue home meds. Patient has no active medical issues at this time, please reconsult as needed. Vital Signs Vital Signs Date Time Temp Pulse Resp B/P (MAP) Pulse Ox O2 Delivery O2 Flow Rate FiO2 07/31/19 11:54 Room Air 07/31/19 10:15 70 136/68 07/31/19 06:36 98.2 16 07/29/19 19:15 95 Home Medications Scheduled Amlodipine Besylate (Amlodipine Besylate) 2.5 Mg Tablet, 2.5 MG PO DAILY Aspirin (Aspir 81) 81 Mg Tablet.dr, 81 MG PO DAILY Cetirizine HCl (Cetirizine HCl) 10 Mg Tablet, 10 MG PO QHS Cholecalciferol (Vitamin D3) (Vitamin D3) 3,000 Unit Tablet, 3,000 UNIT PO DAILY Docusate Sodium (Colace) 100 Mg Capsule, 100 MG PO BID Escitalopram Oxalate (Escitalopram Oxalate) 20 Mg Tablet, 20 MG PO QHS TAKES WITH 5MG DOSE FOR TOTAL OF 25MG DAILY Escitalopram Oxalate (Lexapro) 5 Mg Tablet, 5 MG PO QHS TAKES WITH 20MG DOSE FOR TOTAL OF 25MG DAILY Ferrous Gluconate (Ferrous Gluconate) 324 Mg Tablet, 324 MG PO Q2D Furosemide (Furosemide) 40 Mg Tablet, 40 MG PO DAILY Lidocaine HCl (Aspercreme Lidocaine) 73 Ml Liqd.kelly, 1 APLCT TOP DAILY APPLY TO TOES Mirtazapine (Remeron) 15 Mg Tablet, 15 MG PO QHS Montelukast Sodium (Montelukast Sodium) 10 Mg Tablet, 10 MG PO QHS Omeprazole (Omeprazole) 40 Mg Capsule.dr, 40 MG PO BID Polyethylene Glycol 3350 (Miralax) 119 Gm Powder, 17 GM PO DAILY dilute in 8 ounces of water or juice Propylene Glycol/Peg 400 (Systane 0.3-0.4% Eye Drops) 15 Ml Drops, 1 DROP OU BID Psyllium Husk (with Sugar) (Metamucil Powder) 575 Gm Powder, 1 TSP PO DAILY MIXED WITH 8 OZ OF LIQUID Quetiapine Fumarate (Seroquel Xr) 50 Mg Tab.er.24h, 100 MG PO QHS Simvastatin (Simvastatin) 20 Mg Tablet, 20 MG PO QHS Solifenacin Succinate (Vesicare) 10 Mg Tablet, 10 MG PO DAILY Spironolactone (Spironolactone) 25 Mg Tablet, 12.5 MG PO DAILY Valsartan (Valsartan) 160 Mg Tablet, 160 MG PO QHS Vit A/Vit C/Vit E/Zinc/Copper (Preservision Areds Tablet) 1 Each Tablet, 1 TAB PO DAILY Scheduled PRN Acetaminophen (Acetaminophen) 325 Mg Tablet, 650 MG PO Q6H PRN for PAIN Albuterol Sulfate (Albuterol Sulfate) 2.5 Mg/0.5 Ml Vial.neb, 1 VIAL NEB QID PRN for SHORTNESS OF BREATH Albuterol Sulfate (Ventolin Hfa) 18 Gm Hfa.aer.ad, 2 PUFF INH Q4H PRN for SOB/WHEEZING Lorazepam (Lorazepam) 0.5 Mg Tablet, 0.25 MG PO BID PRN for ANXIETY Mometasone/Formoterol (Dulera 200 Mcg/5 Mcg Inhaler) 13 Gm Hfa.aer.ad, 2 PUFF INH BID PRN for COPD Nystatin (Nystatin Powder) 15 Gm Powder, 1 APLCT TOP BID PRN for RASH APPLY UNDER BREATS AND GROIN Sennosides (Ex-Lax) 15 Mg Tablet, 15 MG PO Q2D PRN for CONSTIPATION Allergies Coded Allergies: No Known Allergies (Verified , 06/08/09) A-FIB/CHADSVASC A-FIB History Current/History of A-Fib/PAF?: No OLEG ELIZONDO MD Jul 31, 2019 17:26
[2019-07-31 18:02] VITALS: BP 120/56
[2019-07-31] MEDS: RAMELTEON 8 MG TAB (ROZEREM) PO SCH (21:02)
[2019-07-31] MEDS: MONTELUKAST 10 MG TAB PO SCH (21:02)
[2019-07-31] MEDS: VALSARTAN 80 MG TAB (DIOVAN) PO SCH (21:02)
[2019-07-31] MEDS: ESCITALOPRAM OXALATE 5MG TABLET (LEXAPRO) PO SCH (21:02)
[2019-07-31] MEDS: CETIRIZINE (ZyrTEC) 10 MG TAB PO SCH (21:03)
[2019-07-31] MEDS: SIMVASTATIN 20 MG TAB PO SCH (21:03)
[2019-08-01 06:26] VITALS: BP 142/54
--- NOTE | 2019-08-01 09:13 | MHIPNPDOC ---
[facility] Progress Note Progress Note Corazon Parekh Inpatient Progress Note Corazon Parekh Select Gender MRN: N/A Date of : MM/DD/YYYY Date of Service: 08/01/2019 History of Present Illness The patient is an 83-year-old woman with a reported history of severe depression with psychotic features, presents to [facility] reporting decompensated depression and unusual somatic preoccupation. The patient was referred from the outpatient [facility]. Interval History Narrative: The patient is attempted to be met with today, she is still difficult to interview, only answering shortly for each answer. Affective: depressed, low mood, loss of interest and hopelessness. Psychotic: The patient generally confused at times. Anxiety: Unknown. Eating and sleeping behaviors: Patient appears to eat well, however her sleeping is disrupted with much sleeping at night and staying awake in the evening. Group Attendance: Few. Medication Side effects: See ROS below Behavioral problems/significant events overnight: None reported. Staff Report: Patient generally unusual, speaks very little. Review Of Systems denies any physical concerns, unable to get full and comprehensive review due to MSE Psychotherapy None on this visit. Vital Signs Reviewed. Mental Status Examination General: Well dressed with good hygiene Speech: nearly mute Thought processes: Linear at times MSK: Some shakiness; however, no tremors Thought content: Unknown Abstract reasoning, and computation: Impaired Description of associations: Impaired Description of abnormal or psychotic thoughts: denies SI Judgment: Impaired Insight: Impaired Orientation: Appears alert to my presence and is able to converse at times Cognition: Impaired Recent and remote memory: Impaired Attention span and concentration: Impaired Fund of knowledge: Unknown Mood: "never getting better" Affect: Flat and bizarre. Diagnoses MDD, recurrent, severe with psychotic symptoms. Unspecified neurocognitive disorder. Assessment and Plan MDD: Continue cross taper with Lexapro 15 mg QHS, and Effexor 37.5 mg extended release daily with lexapro 10mg and effexor 75mg with abilify 2mg nightly, discussed risks, benefits and potential side effects as well as alternatives with patient. Unspecified neurocognitive disorder: Will attempt to reduce anti-cholinergic load and to ascertain once depression is better controlled. Disposition The patient will need a further inpatient admission due to her severely impa iring depression and psychosis. Time Spent 15 minutes. Vital Signs Vital Signs Date Time Temp Pulse Resp B/P (MAP) Pulse Ox O2 Delivery O2 Flow Rate FiO2 08/01/19 08:10 Room Air 08/01/19 06:26 97.5 84 16 142/54 (83) 07/29/19 19:15 95 Current Medications Current Medications Medications (Trade) Dose Ordered Sig/Maura Route PRN Reason Start Time Stop Time Status Last Admin Dose Admin Acetaminophen (Tylenol Tab) 650 mg Q6HP PRN PO HEADACHE or DISCOMFORT 07/29/19 18:45 Al Hydrox/Mg Hydrox/Simethicone (Mylanta) 30 ml Q4HP PRN PO HEARTBURN/INDIGESTION 07/29/19 18:45 Albuterol Sulfate (Proventil, Ventolin Hfa) 2 puff Q4HP PRN INH SOB/WHEEZING 07/29/19 23:00 Amlodipine Besylate (Norvasc) 2.5 mg DAILY PO 07/30/19 09:00 07/31/19 10:15 Artificial Tears (Akwa Tears) 1 drop BID OU 07/30/19 09:00 07/31/19 21:02 Aspirin (Ecotrin) 81 mg DAILY PO 07/30/19 09:00 07/31/19 10:15 Cetirizine HCl (ZyrTEC) 10 mg QHS PO 07/29/19 21:00 07/31/19 21:03 Docusate Sodium (Colace) 100 mg BID PO 07/29/19 21:00 07/31/19 21:03 Escitalopram Oxalate (Lexapro) 5 mg QHS PO 07/29/19 21:00 07/30/19 13:30 DC 07/29/19 23:36 Escitalopram Oxalate (Lexapro) 15 mg QHS PO 07/30/19 21:00 07/31/19 21:02 Escitalopram Oxalate (Lexapro) 20 mg QHS PO 07/29/19 21:00 07/30/19 13:30 DC 07/29/19 23:36 Ferrous Gluconate (Fergon) 324 mg Q2D PO 07/30/19 09:00 07/30/19 09:46 Furosemide (Lasix) 40 mg DAILY PO 07/30/19 09:00 07/31/19 10:14 Home Med (Med Rec Complete!) ASDIRECTED XX 07/29/19 16:15 07/29/19 16:03 DC Lorazepam (Ativan) 0.25 mg BID PRN PO ANXIETY 07/29/19 23:00 07/30/19 14:45 Magnesium Hydroxide (Milk Of Magnesia) 30 ml DAILYPRN PRN PO CONSTIPATION 07/29/19 18:45 Mirtazapine (Remeron) 15 mg QHS PO 07/29/19 21:00 07/30/19 13:30 DC 07/29/19 23:36 Montelukast Sodium (Singulair) 10 mg QHS PO 07/29/19 21:00 07/31/19 21:02 Multivitamins (Ocuvite(I-Flores)) 1 tab DAILY PO 07/30/19 09:00 07/31/19 10:14 Nystatin (Mycostatin Powder, Nystop) UNDER BREASTS & TO GR... BIDP PRN TOP RASH 07/29/19 23:00 Patient Own Medication (Patient'S Own Med) 2 INHALATIONS BID INH 07/31/19 21:00 Polyethylene Glycol (Miralax) 1 pkt DAILY PO 07/30/19 09:00 07/30/19 09:45 Psyllium Hydrophilic Mucilloid (Metamucil) 1 pkt DAILY PO 07/30/19 09:00 07/30/19 09:45 Quetiapine Fumarate (Seroquel Xr) 100 mg QHS PO 07/29/19 21:00 07/30/19 13:30 DC 07/29/19 23:36 Ramelteon (Rozerem) 8 mg QHS PO 07/30/19 21:00 07/31/19 21:02 Simvastatin (Zocor) 20 mg QHS PO 07/29/19 21:00 07/31/19 21:03 Solifenacin (Vesicare) 10 mg DAILY PO 07/30/19 09:00 07/31/19 10:15 Spironolactone (Aldactone) 12.5 mg DAILY PO 07/30/19 09:00 07/31/19 10:16 Trazodone HCl (Desyrel) 50 mg QHSP PRN PO INSOMNIA 07/29/19 18:45 Valsartan (Diovan) 160 mg QHS PO 07/29/19 21:00 07/31/19 21:02 Vitamin D (Vitamin D) 3,000 units DAILY PO 07/30/19 09:00 07/31/19 10:14 Allergies Coded Allergies: No Known Allergies (Verified , 06/08/09) DERECK CAMP DO Aug 01, 2019 09:13
[2019-08-01] MEDS: VITAMIN D 1,000 INTERNATIONAL UNITS TABLET PO SCH (10:02)
[2019-08-01] MEDS: ASPIRIN 81 MG ENTERIC TAB PO SCH (10:02)
[2019-08-01] MEDS: FUROSEMIDE 40 MG TAB PO SCH (10:02)
[2019-08-01] MEDS: DOCUSATE SODIUM 100 MG CAP PO SCH ×2 (10:02→21:00)
[2019-08-01] MEDS: SPIRONOLACTONE 12.5MG PER 1/2 TABLET PO SCH (10:02)
[2019-08-01] MEDS: OCUVITE 1 TAB PO SCH (10:02)
[2019-08-01] MEDS: FERROUS GLUCONATE 324 MG TAB PO SCH (10:02)
[2019-08-01] MEDS: MIRALAX *UNIT DOSE* 17GM PACKET PO SCH (10:02)
[2019-08-01] MEDS: METAMUCIL (PSYLLIUM) PACKET PO SCH (10:02)
[2019-08-01] MEDS: SOLIFENACIN 5 MG TAB PO SCH (10:02)
[2019-08-01] MEDS: POLYVINYL ALCOHOL OPHTH SOLN 15 ML(LIQUITEARS) OU SCH ×2 (10:02→21:00)
[2019-08-01] MEDS ORDERED: VENLAFAXINE **XR** 37.5 MG CAPSULE PO ONE (13:00)
[2019-08-01 16:00] VITALS: BP 112/53
[2019-08-01] MEDS: ESCITALOPRAM OXALATE 10 MG TAB (LEXAPRO) PO SCH (21:00)
[2019-08-01] MEDS: SIMVASTATIN 20 MG TAB PO SCH (21:00)
[2019-08-01] MEDS: RAMELTEON 8 MG TAB (ROZEREM) PO SCH (21:00)
[2019-08-01] MEDS: [UNRECOGNIZED DRUG - OTHER] INH SCH (21:00)
[2019-08-01] MEDS: MONTELUKAST 10 MG TAB PO SCH (21:01)
[2019-08-01] MEDS: ARIPiprazole 2 MG TAB PO SCH (21:01)
[2019-08-01] MEDS: CETIRIZINE (ZyrTEC) 10 MG TAB PO SCH (21:01)
[2019-08-01] MEDS: VALSARTAN 80 MG TAB (DIOVAN) PO SCH (21:01)
[2019-08-02] MEDS: LORazepam 0.5 MG TAB PO PRN ×2 (00:32→01:11)
[2019-08-02 06:42] VITALS: BP 156/86
[2019-08-02] MEDS: POLYVINYL ALCOHOL OPHTH SOLN 15 ML(LIQUITEARS) OU SCH ×2 (09:40→21:29)
[2019-08-02] MEDS: OCUVITE 1 TAB PO SCH (09:40)
[2019-08-02] MEDS: FUROSEMIDE 40 MG TAB PO SCH (09:40)
[2019-08-02] MEDS: VENLAFAXINE **XR** 37.5 MG CAPSULE PO SCH (09:40)
[2019-08-02] MEDS: ASPIRIN 81 MG ENTERIC TAB PO SCH (09:40)
[2019-08-02] MEDS: SOLIFENACIN 5 MG TAB PO SCH (09:40)
[2019-08-02] MEDS: DOCUSATE SODIUM 100 MG CAP PO SCH ×2 (09:40→21:29)
[2019-08-02] MEDS: VITAMIN D 1,000 INTERNATIONAL UNITS TABLET PO SCH (09:40)
[2019-08-02] MEDS: MIRALAX *UNIT DOSE* 17GM PACKET PO SCH (09:41)
[2019-08-02] MEDS: METAMUCIL (PSYLLIUM) PACKET PO SCH ×2 (09:41→10:02)
[2019-08-02] MEDS: SPIRONOLACTONE 12.5MG PER 1/2 TABLET PO SCH (09:58)
[2019-08-02] MEDS: [UNRECOGNIZED DRUG - OTHER] INH SCH ×2 (10:28→21:28)
[2019-08-02 12:13] VITALS: BP 148/73
[2019-08-02 16:17] VITALS: BP 134/75
[2019-08-02] MEDS: VALSARTAN 80 MG TAB (DIOVAN) PO SCH (21:28)
[2019-08-02] MEDS: RAMELTEON 8 MG TAB (ROZEREM) PO SCH (21:29)
[2019-08-02] MEDS: ARIPiprazole 2 MG TAB PO SCH (21:29)
[2019-08-02] MEDS: ESCITALOPRAM OXALATE 10 MG TAB (LEXAPRO) PO SCH (21:29)
[2019-08-02] MEDS: SIMVASTATIN 20 MG TAB PO SCH (21:29)
[2019-08-02] MEDS: CETIRIZINE (ZyrTEC) 10 MG TAB PO SCH (21:29)
[2019-08-02] MEDS: OMEPRAZOLE 20 MG CAP PO SCH (21:29)
[2019-08-02] MEDS: MONTELUKAST 10 MG TAB PO SCH (21:29)
[2019-08-03 06:50] VITALS: BP 140/70
[2019-08-03] MEDS: METAMUCIL (PSYLLIUM) PACKET PO SCH (09:00)
[2019-08-03] MEDS: VITAMIN D 1,000 INTERNATIONAL UNITS TABLET PO SCH (09:14)
[2019-08-03] MEDS: POLYVINYL ALCOHOL OPHTH SOLN 15 ML(LIQUITEARS) OU SCH ×2 (09:14→20:26)
[2019-08-03] MEDS: [UNRECOGNIZED DRUG - OTHER] INH SCH ×2 (09:14→20:26)
[2019-08-03] MEDS: MIRALAX *UNIT DOSE* 17GM PACKET PO SCH (09:15)
[2019-08-03] MEDS: SOLIFENACIN 5 MG TAB PO SCH (09:15)
[2019-08-03] MEDS: SPIRONOLACTONE 12.5MG PER 1/2 TABLET PO SCH (09:15)
[2019-08-03] MEDS: OCUVITE 1 TAB PO SCH (09:15)
[2019-08-03] MEDS: DOCUSATE SODIUM 100 MG CAP PO SCH ×2 (09:15→20:26)
[2019-08-03] MEDS: OMEPRAZOLE 20 MG CAP PO SCH ×2 (09:15→20:26)
[2019-08-03] MEDS: ASPIRIN 81 MG ENTERIC TAB PO SCH (09:15)
[2019-08-03] MEDS: FUROSEMIDE 40 MG TAB PO SCH (09:15)
[2019-08-03] MEDS: VENLAFAXINE **XR** 37.5 MG CAPSULE PO SCH (09:15)
[2019-08-03] MEDS: FERROUS GLUCONATE 324 MG TAB PO SCH (09:16)
--- NOTE | 2019-08-03 11:36 | MHIPN ---
DATE: 08/02/2019 VITAL SIGNS: Blood pressure 148/73, pulse 75, temperature 98.2. CHIEF COMPLAINT: Feels anxious. SUBJECTIVE: Seen for followup, in the presence of staff. Says she is not sure how she has been doing, but feels a bit worse, says she hears a humming, which she says comes from her heart, tends to disturb her. Acknowledges feeling somewhat depressed. Denies feeling suicidal. Has tended to act somewhat bizarrely in the nighttime apparently. MENTAL STATUS EXAMINATION: She is neat. She uses a walker. There is no agitation. Some psychomotor retardation, and displays some latency of response, though unclear if it is because she is hard of hearing, answers questions briefly, logically and coherently. Affect is quite restricted, somewhat flat, little in range. Denies any thoughts of harming herself or anyone else. At present, no evidence of any psychosis. Does not appear to be internally preoccupied, though the possibility of somatic delusion needs to be taken into consideration. Insight and judgment are fair. ASSESSMENT: Major depressive disorder with psychotic features is the current working diagnosis. I would suspect considering a neurocognitive disorder as well. PLAN: She is to continue current care, and observations. She is to be encouraged to participate in activities on the unit. We met for 15 minutes.
[2019-08-03 16:11] VITALS: BP 125/57
[2019-08-03] MEDS: VALSARTAN 80 MG TAB (DIOVAN) PO SCH (20:26)
[2019-08-03] MEDS: ESCITALOPRAM OXALATE 10 MG TAB (LEXAPRO) PO SCH (20:26)
[2019-08-03] MEDS: SIMVASTATIN 20 MG TAB PO SCH (20:26)
[2019-08-03] MEDS: ARIPiprazole 2 MG TAB PO SCH (20:27)
[2019-08-03] MEDS: CETIRIZINE (ZyrTEC) 10 MG TAB PO SCH (20:27)
[2019-08-03] MEDS: RAMELTEON 8 MG TAB (ROZEREM) PO SCH (20:27)
[2019-08-03] MEDS: MONTELUKAST 10 MG TAB PO SCH (20:27)
[2019-08-04 06:33] VITALS: BP 138/66
[2019-08-04] MEDS: METAMUCIL (PSYLLIUM) PACKET PO SCH ×2 (09:00→09:41)
[2019-08-04] MEDS: [UNRECOGNIZED DRUG - OTHER] INH SCH ×2 (09:39→21:04)
[2019-08-04] MEDS: SPIRONOLACTONE 12.5MG PER 1/2 TABLET PO SCH (09:39)
[2019-08-04] MEDS: VITAMIN D 1,000 INTERNATIONAL UNITS TABLET PO SCH (09:40)
[2019-08-04] MEDS: MIRALAX *UNIT DOSE* 17GM PACKET PO SCH (09:40)
[2019-08-04] MEDS: POLYVINYL ALCOHOL OPHTH SOLN 15 ML(LIQUITEARS) OU SCH ×2 (09:40→21:02)
[2019-08-04] MEDS: OMEPRAZOLE 20 MG CAP PO SCH ×2 (09:40→21:03)
[2019-08-04] MEDS: FUROSEMIDE 40 MG TAB PO SCH (09:40)
[2019-08-04] MEDS: OCUVITE 1 TAB PO SCH (09:40)
[2019-08-04] MEDS: DOCUSATE SODIUM 100 MG CAP PO SCH ×2 (09:40→21:02)
[2019-08-04] MEDS: SOLIFENACIN 5 MG TAB PO SCH (09:40)
[2019-08-04] MEDS: ASPIRIN 81 MG ENTERIC TAB PO SCH (09:41)
[2019-08-04] MEDS: VENLAFAXINE **XR** 37.5 MG CAPSULE PO SCH (09:41)
--- NOTE | 2019-08-04 10:28 | MHIPNPDOC ---
[facility] Progress Note Progress Note Inpatient Progress Note Corazon Parekh MRN: N/A Date of : N/A Date of Service: 08/04/2019 History of Present Illness The patient is an 83-year-old woman with a reported history of severe depression with psychotic features, presents to [facility] reporting decompensated depression and unusual somatic preoccupation. The patient was referred from the outpatient [facility]. When the patient was evaluated she was a very poor historian, she was generally highly anxious, staring at this provider, unable to discuss a majority of her symptoms. After some prompting, she was able to describe some feelings of depression and memory difficulties. The patient is an 83-year-old woman with a reported history of severe depression with psychotic features, presents to [facility] reporting decompensated depression and unusual somatic preoccupation. The patient was referred from the outpatient [facility]. When the patient was evaluated she was a very poor historian, she was generally highly anxious, staring at this provider, unable to discuss a majority of her symptoms. After some prompting, she was able to describe some feelings of depression and memory difficulties. Interval History Narrative: The patient is attempted to be met with today, however, she refuses. She only states that she is "scared". However, she cannot describe any problems. Affective: Unknown. Psychotic: The patient generally confused at times. Anxiety: Unknown. Eating and sleeping behaviors: Patient appears to eat well, however her sleeping is disrupted with much sleeping at night and staying awake in the evening. Group Attendance: Few. Medication Side effects: See ROS below Behavioral problems/significant events overnight: None reported. Staff Report: Patient generally unusual, speaks very little. Review Of Systems Unable to engage due to mental status. Psychotherapy None on this visit. Vital Signs Reviewed. Mental Status Examination General: Well dressed with good hygiene Speech: Mute. Thought processes: Linear at times MSK: Some shakiness; however, no tremors Thought content: Unknown Abstract reasoning, and computation: Impaired Description of associations: Impaired Description of abnormal or psychotic thoughts: Unknown Judgment: Impaired Insight: Impaired Orientation: Appears alert to my presence and is able to converse at times Cognition: Impaired Recent and remote memory: Impaired Attention span and concentration: Impaired Fund of knowledge: Unknown Mood: "" Affect: Flat and bizarre. Diagnoses MDD, recurrent, severe with psychotic symptoms. Unspecified neurocognitive disorder. Assessment and Plan MDD: Continue cross taper with Lexapro 15 mg QHS, and Effexor 37.5 mg extended release daily. Unspecified neurocognitive disorder: We'll attempt to reduce anti-cholinergic load and to ascertain once depression is better controlled. Disposition The patient will need a further inpatient admission due to her severely impairing depression and psychosis. Time Spent 15 minutes. Sunday Vital Signs Vital Signs Date Time Temp Pulse Resp B/P (MAP) Pulse Ox O2 Delivery O2 Flow Rate FiO2 08/04/19 09:41 70 130/62 08/04/19 06:33 98.0 16 08/03/19 09:18 Room Air 07/29/19 19:15 95 Current Medications Current Medications Medications (Trade) Dose Ordered Sig/Maura Route PRN Reason Start Time Stop Time Status Last Admin Dose Admin Acetaminophen (Tylenol Tab) 650 mg Q6HP PRN PO HEADACHE or DISCOMFORT 07/29/19 18:45 Al Hydrox/Mg Hydrox/Simethicone (Mylanta) 30 ml Q4HP PRN PO HEARTBURN/INDIGESTION 07/29/19 18:45 Albuterol Sulfate (Proventil, Ventolin Hfa) 2 puff Q4HP PRN INH SOB/WHEEZING 07/29/19 23:00 Amlodipine Besylate (Norvasc) 2.5 mg DAILY PO 07/30/19 09:00 08/04/19 09:41 Aripiprazole (AbiLIFY) 2 mg QHS PO 08/01/19 21:00 08/03/19 20:27 Artificial Tears (Akwa Tears) 1 drop BID OU 07/30/19 09:00 08/04/19 09:40 Aspirin (Ecotrin) 81 mg DAILY PO 07/30/19 09:00 08/04/19 09:41 Cetirizine HCl (ZyrTEC) 10 mg QHS PO 07/29/19 21:00 08/03/19 20:27 Docusate Sodium (Colace) 100 mg BID PO 07/29/19 21:00 08/04/19 09:40 Escitalopram Oxalate (Lexapro) 5 mg QHS PO 07/29/19 21:00 07/30/19 13:30 DC 07/29/19 23:36 Escitalopram Oxalate (Lexapro) 10 mg QHS PO 08/01/19 21:00 08/03/19 20:26 Escitalopram Oxalate (Lexapro) 15 mg QHS PO 07/30/19 21:00 08/01/19 12:14 DC 07/31/19 21:02 Escitalopram Oxalate (Lexapro) 20 mg QHS PO 07/29/19 21:00 07/30/19 13:30 DC 07/29/19 23:36 Ferrous Gluconate (Fergon) 324 mg Q2D PO 07/30/19 09:00 08/03/19 09:16 Furosemide (Lasix) 40 mg DAILY PO 07/30/19 09:00 08/04/19 09:40 Home Med (Med Rec Complete!) ASDIRECTED XX 07/29/19 16:15 07/29/19 16:03 DC Lorazepam (Ativan) 0.25 mg BID PRN PO ANXIETY 07/29/19 23:00 08/02/19 01:11 Magnesium Hydroxide (Milk Of Magnesia) 30 ml DAILYPRN PRN PO CONSTIPATION 07/29/19 18:45 Mirtazapine (Remeron) 15 mg QHS PO 07/29/19 21:00 07/30/19 13:30 DC 07/29/19 23:36 Montelukast Sodium (Singulair) 10 mg QHS PO 07/29/19 21:00 08/03/19 20:27 Multivitamins (Ocuvite(I-Flores)) 1 tab DAILY PO 07/30/19 09:00 08/04/19 09:40 Nystatin (Mycostatin Powder, Nystop) UNDER BREASTS & TO GR... BIDP PRN TOP RASH 07/29/19 23:00 Omeprazole (PriLOSEC) 40 mg BID PO 08/02/19 21:00 08/04/19 09:40 Patient Own Medication (Patient'S Own Med) 2 INHALATIONS BID INH 07/31/19 21:00 08/04/19 09:39 Polyethylene Glycol (Miralax) 1 pkt DAILY PO 07/30/19 09:00 08/04/19 09:40 Psyllium Hydrophilic Mucilloid (Metamucil) 1 pkt DAILY PO 07/30/19 09:00 08/01/19 10:02 Quetiapine Fumarate (Seroquel Xr) 100 mg QHS PO 07/29/19 21:00 07/30/19 13:30 DC 07/29/19 23:36 Ramelteon (Rozerem) 8 mg QHS PO 07/30/19 21:00 08/03/19 20:27 Simvastatin (Zocor) 20 mg QHS PO 07/29/19 21:00 08/03/19 20:26 Solifenacin (Vesicare) 10 mg DAILY PO 07/30/19 09:00 08/04/19 09:40 Spironolactone (Aldactone) 12.5 mg DAILY PO 07/30/19 09:00 08/04/19 09:39 Trazodone HCl (Desyrel) 50 mg QHSP PRN PO INSOMNIA 07/29/19 18:45 Valsartan (Diovan) 160 mg QHS PO 07/29/19 21:00 08/03/19 20:26 Venlafaxine HCl (Effexor Xr) 37.5 mg DAILY PO 08/02/19 09:00 08/04/19 09:41 Vitamin D (Vitamin D) 3,000 units DAILY PO 07/30/19 09:00 08/04/19 09:40 Allergies Coded Allergies: No Known Allergies (Verified , 06/08/09) DERECK CAMP 2, 2020 10:28
[2019-08-04 16:21] VITALS: BP 101/65
[2019-08-04] MEDS: ARIPiprazole 2 MG TAB PO SCH (21:01)
[2019-08-04] MEDS: RAMELTEON 8 MG TAB (ROZEREM) PO SCH (21:02)
[2019-08-04] MEDS: ESCITALOPRAM OXALATE 10 MG TAB (LEXAPRO) PO SCH (21:03)
[2019-08-04] MEDS: CETIRIZINE (ZyrTEC) 10 MG TAB PO SCH (21:03)
[2019-08-04] MEDS: VALSARTAN 80 MG TAB (DIOVAN) PO SCH (21:03)
[2019-08-04] MEDS: MONTELUKAST 10 MG TAB PO SCH (21:03)
[2019-08-04] MEDS: SIMVASTATIN 20 MG TAB PO SCH (21:03)
[2019-08-04] MEDS ORDERED: LORazepam 0.5 MG TAB PO PRN (22:59)
[2019-08-05 06:37] VITALS: BP 160/85
[2019-08-05] MEDS: METAMUCIL (PSYLLIUM) PACKET PO SCH (09:00)
[2019-08-05] MEDS: SOLIFENACIN 5 MG TAB PO SCH (09:13)
[2019-08-05] MEDS: [UNRECOGNIZED DRUG - OTHER] INH SCH ×2 (09:13→20:48)
[2019-08-05] MEDS: VITAMIN D 1,000 INTERNATIONAL UNITS TABLET PO SCH (09:13)
[2019-08-05] MEDS: MIRALAX *UNIT DOSE* 17GM PACKET PO SCH (09:13)
[2019-08-05] MEDS: FERROUS GLUCONATE 324 MG TAB PO SCH (09:14)
[2019-08-05] MEDS: DOCUSATE SODIUM 100 MG CAP PO SCH ×2 (09:14→20:51)
[2019-08-05] MEDS: OMEPRAZOLE 20 MG CAP PO SCH ×2 (09:14→20:51)
[2019-08-05] MEDS: VENLAFAXINE **XR** 37.5 MG CAPSULE PO SCH (09:14)
[2019-08-05] MEDS: OCUVITE 1 TAB PO SCH (09:14)
[2019-08-05] MEDS: POLYVINYL ALCOHOL OPHTH SOLN 15 ML(LIQUITEARS) OU SCH ×2 (09:14→20:48)
[2019-08-05] MEDS: FUROSEMIDE 40 MG TAB PO SCH (09:14)
[2019-08-05] MEDS: ASPIRIN 81 MG ENTERIC TAB PO SCH (09:14)
[2019-08-05] MEDS: SPIRONOLACTONE 12.5MG PER 1/2 TABLET PO SCH (09:14)
--- NOTE | 2019-08-05 10:54 | MHIPNPDOC ---
[facility] Progress Note Progress Note Inpatient Progress Note Corazon Parekh MRN: N/A Date of : N/A Date of Service: 08/05/2019 History of Present Illness The patient is an 83-year-old woman with a reported history of severe depression with psychotic features, presents to [facility] reporting decompensated depression and unusual somatic preoccupation. The patient was referred from the outpatient [facility]. When the patient was evaluated she was a very poor historian, she was generally highly anxious, staring at this provider, unable to discuss a majority of her symptoms. After some prompting, she was able to describe some feelings of depression and memory difficulties. The patient is an 83-year-old woman with a reported history of severe depression with psychotic features, presents to [facility] reporting decompensated depression and unusual somatic preoccupation. The patient was referred from the outpatient [facility]. When the patient was evaluated she was a very poor historian, she was generally highly anxious, staring at this provider, unable to discuss a majority of her symptoms. After some prompting, she was able to describe some feelings of depression and memory difficulties. Interval History Narrative: The patient is attempted to be met with today, however, she continues to refuse stating that she "does not know why." She continues to stare bizarrely, staying in her bed for the majority of the day. Affective: Unknown. Psychotic: The patient generally confused at times. Anxiety: Unknown. Eating and sleeping behaviors: Patient appears to eat well, however her sleeping is disrupted with much sleeping at night and staying awake in the evening. Group Attendance: Few. Medication Side effects: See ROS below Behavioral problems/significant events overnight: None reported. Staff Report: Patient generally unusual, speaks very little. Review Of Systems Unable to engage due to mental status. Psychotherapy None on this visit. Vital Signs Reviewed. Mental Status Examination General: Well dressed with good hygiene Speech: Mute. Thought processes: Linear at times MSK: Some shakiness; however, no tremors Thought content: Unknown Abstract reasoning, and computation: Impaired Description of associations: Impaired Description of abnormal or psychotic thoughts: Unknown Judgment: Impaired Insight: Impaired Orientation: Appears alert to my presence and is able to converse at times Cognition: Impaired Recent and remote memory: Impaired Attention span and concentration: Impaired Fund of knowledge: Unknown Mood: "I don't know." Affect: Flat and bizarre. Change mood "I do not know Diagnoses MDD, severe, with psychotic features. Unspecified neurocognitive disorder. Assessment and Plan MDD: Continue cross taper with Lexapro, lowering to 10 mg nightly and continue Effexor 37.5 mg extended release daily. We'll add Abilify 2 mg nightly for psychotic components. Unspecified neurocognitive disorder: We'll attempt to reduce anti-cholinergic load and to ascertain once depression is better controlled. Disposition The patient will need a further inpatient admission due to her severely impairing depression and psychosis. Time Spent 15 minutes. Sunday Vital Signs Vital Signs Date Time Temp Pulse Resp B/P (MAP) Pulse Ox O2 Delivery O2 Flow Rate FiO2 08/05/19 09:14 71 137/90 08/05/19 06:37 97.9 16 Room Air Current Medications Current Medications Medications (Trade) Dose Ordered Sig/Maura Route PRN Reason Start Time Stop Time Status Last Admin Dose Admin Acetaminophen (Tylenol Tab) 650 mg Q6HP PRN PO HEADACHE or DISCOMFORT 07/29/19 18:45 Al Hydrox/Mg Hydrox/Simethicone (Mylanta) 30 ml Q4HP PRN PO HEARTBURN/INDIGESTION 07/29/19 18:45 Albuterol Sulfate (Proventil, Ventolin Hfa) 2 puff Q4HP PRN INH SOB/WHEEZING 07/29/19 23:00 Amlodipine Besylate (Norvasc) 2.5 mg DAILY PO 07/30/19 09:00 08/05/19 09:14 Aripiprazole (AbiLIFY) 2 mg QHS PO 08/01/19 21:00 08/04/19 21:01 Artificial Tears (Akwa Tears) 1 drop BID OU 07/30/19 09:00 08/05/19 09:14 Aspirin (Ecotrin) 81 mg DAILY PO 07/30/19 09:00 08/05/19 09:14 Cetirizine HCl (ZyrTEC) 10 mg QHS PO 07/29/19 21:00 08/04/19 21:03 Docusate Sodium (Colace) 100 mg BID PO 07/29/19 21:00 08/05/19 09:14 Escitalopram Oxalate (Lexapro) 5 mg QHS PO 07/29/19 21:00 07/30/19 13:30 DC 07/29/19 23:36 Escitalopram Oxalate (Lexapro) 10 mg QHS PO 08/01/19 21:00 08/04/19 21:03 Escitalopram Oxalate (Lexapro) 15 mg QHS PO 07/30/19 21:00 08/01/19 12:14 DC 07/31/19 21:02 Escitalopram Oxalate (Lexapro) 20 mg QHS PO 07/29/19 21:00 07/30/19 13:30 DC 07/29/19 23:36 Ferrous Gluconate (Fergon) 324 mg Q2D PO 07/30/19 09:00 08/05/19 09:14 Furosemide (Lasix) 40 mg DAILY PO 07/30/19 09:00 08/05/19 09:14 Home Med (Med Rec Complete!) ASDIRECTED XX 07/29/19 16:15 07/29/19 16:03 DC Lorazepam (Ativan) 0.25 mg BID PRN PO ANXIETY 07/29/19 23:00 08/05/19 22:59 08/02/19 01:11 Lorazepam (Ativan) 0.25 mg BIDP PRN PO ANXIETY 08/04/19 22:59 Cancel Magnesium Hydroxide (Milk Of Magnesia) 30 ml DAILYPRN PRN PO CONSTIPATION 07/29/19 18:45 Mirtazapine (Remeron) 15 mg QHS PO 07/29/19 21:00 07/30/19 13:30 DC 07/29/19 23:36 Montelukast Sodium (Singulair) 10 mg QHS PO 07/29/19 21:00 08/04/19 21:03 Multivitamins (Ocuvite(I-Flores)) 1 tab DAILY PO 07/30/19 09:00 08/05/19 09:14 Nystatin (Mycostatin Powder, Nystop) UNDER BREASTS & TO GR... BIDP PRN TOP RASH 07/29/19 23:00 Omeprazole (PriLOSEC) 40 mg BID PO 08/02/19 21:00 08/05/19 09:14 Patient Own Medication (Patient'S Own Med) 2 INHALATIONS BID INH 07/31/19 21:00 08/05/19 09:13 Polyethylene Glycol (Miralax) 1 pkt DAILY PO 07/30/19 09:00 08/05/19 09:13 Psyllium Hydrophilic Mucilloid (Metamucil) 1 pkt DAILY PO 07/30/19 09:00 08/01/19 10:02 Quetiapine Fumarate (Seroquel Xr) 100 mg QHS PO 07/29/19 21:00 07/30/19 13:30 DC 07/29/19 23:36 Ramelteon (Rozerem) 8 mg QHS PO 07/30/19 21:00 08/04/19 21:02 Simvastatin (Zocor) 20 mg QHS PO 07/29/19 21:00 08/04/19 21:03 Solifenacin (Vesicare) 10 mg DAILY PO 07/30/19 09:00 08/05/19 09:13 Spironolactone (Aldactone) 12.5 mg DAILY PO 07/30/19 09:00 08/05/19 09:14 Trazodone HCl (Desyrel) 50 mg QHSP PRN PO INSOMNIA 07/29/19 18:45 Valsartan (Diovan) 160 mg QHS PO 07/29/19 21:00 08/04/19 21:03 Venlafaxine HCl (Effexor Xr) 37.5 mg DAILY PO 08/02/19 09:00 08/05/19 09:14 Vitamin D (Vitamin D) 3,000 units DAILY PO 07/30/19 09:00 08/05/19 09:13 Allergies Coded Allergies: No Known Allergies (Verified , 06/08/09) DERECK CAMP DO Aug 05, 2019 10:54
[2019-08-05 16:05] VITALS: BP 116/58
[2019-08-05] MEDS: RAMELTEON 8 MG TAB (ROZEREM) PO SCH (20:49)
[2019-08-05] MEDS: VALSARTAN 80 MG TAB (DIOVAN) PO SCH (20:49)
[2019-08-05] MEDS: CETIRIZINE (ZyrTEC) 10 MG TAB PO SCH (20:50)
[2019-08-05] MEDS: ARIPiprazole 2 MG TAB PO SCH (20:50)
[2019-08-05] MEDS: MONTELUKAST 10 MG TAB PO SCH (20:50)
[2019-08-05] MEDS: SIMVASTATIN 20 MG TAB PO SCH (20:51)
[2019-08-05] MEDS: ESCITALOPRAM OXALATE 10 MG TAB (LEXAPRO) PO SCH (20:51)
[2019-08-05] MEDS: traZODone 50 MG TAB PO PRN (20:52)
[2019-08-06 06:30] VITALS: BP 148/72
[2019-08-06] MEDS: METAMUCIL (PSYLLIUM) PACKET PO SCH (09:00)
[2019-08-06] MEDS: DOCUSATE SODIUM 100 MG CAP PO SCH ×2 (09:39→20:26)
[2019-08-06] MEDS: OMEPRAZOLE 20 MG CAP PO SCH ×2 (09:39→20:27)
[2019-08-06] MEDS: POLYVINYL ALCOHOL OPHTH SOLN 15 ML(LIQUITEARS) OU SCH ×2 (09:39→20:27)
[2019-08-06] MEDS: MIRALAX *UNIT DOSE* 17GM PACKET PO SCH (09:39)
[2019-08-06] MEDS: FUROSEMIDE 40 MG TAB PO SCH (09:39)
[2019-08-06] MEDS: ASPIRIN 81 MG ENTERIC TAB PO SCH (09:39)
[2019-08-06] MEDS: SPIRONOLACTONE 12.5MG PER 1/2 TABLET PO SCH (09:39)
[2019-08-06] MEDS: OCUVITE 1 TAB PO SCH (09:40)
[2019-08-06] MEDS: VENLAFAXINE **XR** 37.5 MG CAPSULE PO SCH (09:40)
[2019-08-06] MEDS: SOLIFENACIN 5 MG TAB PO SCH (09:40)
[2019-08-06] MEDS: VITAMIN D 1,000 INTERNATIONAL UNITS TABLET PO SCH (09:40)
[2019-08-06] MEDS: [UNRECOGNIZED DRUG - OTHER] INH SCH ×2 (09:41→20:26)
--- NOTE | 2019-08-06 10:30 | MHIPNPDOC ---
[facility] Progress Note Progress Note Inpatient Progress Note Corazon Parekh MRN: N/A Date of : N/A Date of Service: 08/06/2019 History of Present Illness The patient is an 83-year-old woman with a reported history of severe depression with psychotic features, presents to [facility] reporting decompensated depression and unusual somatic preoccupation. The patient was referred from the outpatient [facility]. When the patient was evaluated she was a very poor historian, she was generally highly anxious, staring at this provider, unable to discuss a majority of her symptoms. After some prompting, she was able to describe some feelings of depression and memory difficulties. The patient is an 83-year-old woman with a reported history of severe depression with psychotic features, presents to [facility] reporting decompensated depression and unusual somatic preoccupation. The patient was referred from the outpatient [facility]. When the patient was evaluated she was a very poor historian, she was generally highly anxious, staring at this provider, unable to discuss a majority of her symptoms. After some prompting, she was able to describe some feelings of depression and memory difficulties. Interval History The patient is met with today, her nurse Cassie is meeting with her at the same time. The patient continues to lay in bed, had gotten out of bed. She generally speaks very little and has difficulty completing sentences. The patient reports she still feels "hopeless." She continues to report that she is scared of others but cannot describe any specifics. Staff note that she generally stays in her room for the majority of the day rarely even leaving to eat. She still has difficulty staying up all night and engaging in unusual behaviors. She is generally unable to describe her depression and anxiety in anymore than vague terms. Review Of Systems Unable to elaborate as the patient's mental status make specifics difficult. Psychotherapy None on this visit. Vital Signs Reviewed. Mental Status Examination General: Well dressed with good hygiene Speech: Mute. Thought processes: Linear at times MSK: Some shakiness; however, no tremors Thought content: Unknown Abstract reasoning, and computation: Impaired Description of associations: Impaired Description of abnormal or psychotic thoughts: Unknown Judgment: Impaired Insight: Impaired Orientation: Appears alert to my presence and is able to converse at times Cognition: Impaired Recent and remote memory: Impaired Attention span and concentration: Impaired Fund of knowledge: Unknown Mood: "I don't know." Affect: Flat and bizarre. Diagnoses MDD, severe, with psychotic features. Unspecified neurocognitive disorder. Assessment and Plan MDD: Discontinue Lexapro tonight, increase Effexor to 75 mg extended release. Increase Abilify to 4 mg nightly. Unspecified neurocognitive disorder: Unclear as to how much is contributing. Disposition The patient will need a further inpatient admission due to her severely impairing depression and psychosis. Time Spent 15 minutes. Sunday Vital Signs Vital Signs Date Time Temp Pulse Resp B/P (MAP) Pulse Ox O2 Delivery O2 Flow Rate FiO2 08/06/19 09:40 70 140/72 08/06/19 06:30 97.3 16 08/05/19 06:37 Room Air Current Medications Current Medications Medications (Trade) Dose Ordered Sig/Maura Route PRN Reason Start Time Stop Time Status Last Admin Dose Admin Acetaminophen (Tylenol Tab) 650 mg Q6HP PRN PO HEADACHE or DISCOMFORT 07/29/19 18:45 Al Hydrox/Mg Hydrox/Simethicone (Mylanta) 30 ml Q4HP PRN PO HEARTBURN/INDIGESTION 07/29/19 18:45 08/05/19 12:43 Albuterol Sulfate (Proventil, Ventolin Hfa) 2 puff Q4HP PRN INH SOB/WHEEZING 07/29/19 23:00 Amlodipine Besylate (Norvasc) 2.5 mg DAILY PO 07/30/19 09:00 08/06/19 09:40 Aripiprazole (AbiLIFY) 2 mg QHS PO 08/01/19 21:00 08/05/19 20:50 Artificial Tears (Akwa Tears) 1 drop BID OU 07/30/19 09:00 08/06/19 09:39 Aspirin (Ecotrin) 81 mg DAILY PO 07/30/19 09:00 08/06/19 09:39 Cetirizine HCl (ZyrTEC) 10 mg QHS PO 07/29/19 21:00 08/05/19 20:50 Docusate Sodium (Colace) 100 mg BID PO 07/29/19 21:00 08/06/19 09:39 Escitalopram Oxalate (Lexapro) 5 mg QHS PO 07/29/19 21:00 07/30/19 13:30 DC 07/29/19 23:36 Escitalopram Oxalate (Lexapro) 10 mg QHS PO 08/01/19 21:00 08/05/19 20:51 Escitalopram Oxalate (Lexapro) 15 mg QHS PO 07/30/19 21:00 08/01/19 12:14 DC 07/31/19 21:02 Escitalopram Oxalate (Lexapro) 20 mg QHS PO 07/29/19 21:00 07/30/19 13:30 DC 07/29/19 23:36 Ferrous Gluconate (Fergon) 324 mg Q2D PO 07/30/19 09:00 08/05/19 09:14 Furosemide (Lasix) 40 mg DAILY PO 07/30/19 09:00 08/06/19 09:39 Home Med (Med Rec Complete!) ASDIRECTED XX 07/29/19 16:15 07/29/19 16:03 DC Lorazepam (Ativan) 0.25 mg BID PRN PO ANXIETY 07/29/19 23:00 08/05/19 22:59 DC 08/02/19 01:11 Lorazepam (Ativan) 0.25 mg BIDP PRN PO ANXIETY 08/04/19 22:59 Cancel Magnesium Hydroxide (Milk Of Magnesia) 30 ml DAILYPRN PRN PO CONSTIPATION 07/29/19 18:45 Mirtazapine (Remeron) 15 mg QHS PO 07/29/19 21:00 07/30/19 13:30 DC 07/29/19 23:36 Montelukast Sodium (Singulair) 10 mg QHS PO 07/29/19 21:00 08/05/19 20:50 Multivitamins (Ocuvite(I-Flores)) 1 tab DAILY PO 07/30/19 09:00 08/06/19 09:40 Nystatin (Mycostatin Powder, Nystop) UNDER BREASTS & TO GR... BIDP PRN TOP RASH 07/29/19 23:00 Omeprazole (PriLOSEC) 40 mg BID PO 08/02/19 21:00 08/06/19 09:39 Patient Own Medication (Patient'S Own Med) 2 INHALATIONS BID INH 07/31/19 21:00 08/06/19 09:41 Polyethylene Glycol (Miralax) 1 pkt DAILY PO 07/30/19 09:00 08/06/19 09:39 Psyllium Hydrophilic Mucilloid (Metamucil) 1 pkt DAILY PO 07/30/19 09:00 08/01/19 10:02 Quetiapine Fumarate (Seroquel Xr) 100 mg QHS PO 07/29/19 21:00 07/30/19 13:30 DC 07/29/19 23:36 Ramelteon (Rozerem) 8 mg QHS PO 07/30/19 21:00 08/05/19 20:49 Simvastatin (Zocor) 20 mg QHS PO 07/29/19 21:00 08/05/19 20:51 Solifenacin (Vesicare) 10 mg DAILY PO 07/30/19 09:00 08/06/19 09:40 Spironolactone (Aldactone) 12.5 mg DAILY PO 07/30/19 09:00 08/06/19 09:39 Trazodone HCl (Desyrel) 50 mg QHSP PRN PO INSOMNIA 07/29/19 18:45 08/05/19 20:52 Valsartan (Diovan) 160 mg QHS PO 07/29/19 21:00 08/05/19 20:49 Venlafaxine HCl (Effexor Xr) 37.5 mg DAILY PO 08/02/19 09:00 08/06/19 09:40 Vitamin D (Vitamin D) 3,000 units DAILY PO 07/30/19 09:00 08/06/19 09:40 Allergies Coded Allergies: No Known Allergies (Verified , 06/08/09) DERECK CAMP DO Aug 06, 2019 10:30
[2019-08-06 16:26] VITALS: BP 109/56
[2019-08-06] MEDS: CETIRIZINE (ZyrTEC) 10 MG TAB PO SCH (20:24)
[2019-08-06] MEDS: VALSARTAN 80 MG TAB (DIOVAN) PO SCH (20:24)
[2019-08-06] MEDS: MONTELUKAST 10 MG TAB PO SCH (20:24)
[2019-08-06] MEDS: ARIPiprazole 2 MG TAB PO SCH (20:25)
[2019-08-06] MEDS: SIMVASTATIN 20 MG TAB PO SCH (20:26)
[2019-08-06] MEDS: traZODone 50 MG TAB PO PRN (20:26)
[2019-08-07 07:14] VITALS: BP 156/72
--- NOTE | 2019-08-07 08:42 | MHIPNPDOC ---
[facility] Progress Note Progress Note Inpatient Progress Note Corazon Parekh MRN: N/A Date of : N/A Date of Service: 08/07/2019 History of Present Illness The patient is an 83-year-old woman with a reported history of severe depression with psychotic features, presents to [facility] reporting decompensated depression and unusual somatic preoccupation. The patient was referred from the outpatient [facility]. When the patient was evaluated she was a very poor historian, she was generally highly anxious, staring at this provider, unable to discuss a majority of her symptoms. After some prompting, she was able to describe some feelings of depression and memory difficulties. The patient is an 83-year-old woman with a reported history of severe depression with psychotic features, presents to [facility] reporting decompensated depression and unusual somatic preoccupation. The patient was referred from the outpatient [facility]. When the patient was evaluated she was a very poor historian, she was generally highly anxious, staring at this provider, unable to discuss a majority of her symptoms. After some prompting, she was able to describe some feelings of depression and memory difficulties. Interval History The patient was met with today. She had been reporting that she does not remember when she had a bowel movement last. The hospitalist was issued a consult to assess if there was any difficulties due to concerns from nursing. The patient otherwise reports that she is "doing better", she reports less hopelessness. She has latency in her responses, but generally supports that she is doing better, with no voices or other psychotic symptoms. Nursing has noticed that she has become more active and remains in her room less. No behavioral problems overnight. Review Of Systems General: Denies fever or appetite changes Cardiovascular: Denies Chest pain or palpations GI: As above. Denies any stomach pain or other GI symptoms other than above. Respiratory: Denies shortness of breath or cough Neuro: Denies dizziness, tremors Derm: Denies any rashes or pruritus : Denies any dysuria or urinary problems MSK: Denies any muscle tightness or stiffness HEENT: Denies any vision changes or headaches Psychotherapy None on this visit. Vital Signs Reviewed. Mental Status Examination General: Well dressed with good hygiene Speech: More fluid. Thought processes: More linear. MSK: No tremors noted. Thought content: Less bizarre. Abstract reasoning, and computation: Impaired Description of associations: Less impaired Description of abnormal or psychotic thoughts: Denies any suicidal or homicidal ideation. Denies any auditory or visual hallucinations. Does not appear to be responding to internal stimuli. Judgment: Impaired Insight: Impaired Orientation: More alert and oriented to surroundings. Cognition: Impaired Recent and remote memory: Impaired Attention span and concentration: Impaired Fund of knowledge: Unknown Mood: "I guess I am getting better." Affect: Less flat and more reactive. Diagnoses MDD, severe, with psychotic features. Unspecified neurocognitive disorder. Assessment and Plan MDD: Continue Effexor 75 mg extended and Abilify 4 mg nightly. Unspecified neurocognitive disorder: Unclear as to how much is contributing. Disposition The patient will need a further inpatient admission in order to treat her depression, her neurocognitive difficulties and likely will be of little interest in terms of disposition as she lives in a supportive housing environment already. She will need further observation to assure toleration of her medications. Time Spent 15 minutes. Vital Signs Vital Signs Date Time Temp Pulse Resp B/P (MAP) Pulse Ox O2 Delivery O2 Flow Rate FiO2 08/07/19 07:14 98.5 69 14 156/72 (100) 08/05/19 06:37 Room Air Current Medications Current Medications Medications (Trade) Dose Ordered Sig/Maura Route PRN Reason Start Time Stop Time Status Last Admin Dose Admin Acetaminophen (Tylenol Tab) 650 mg Q6HP PRN PO HEADACHE or DISCOMFORT 07/29/19 18:45 Al Hydrox/Mg Hydrox/Simethicone (Mylanta) 30 ml Q4HP PRN PO HEARTBURN/INDIGESTION 07/29/19 18:45 08/05/19 12:43 Albuterol Sulfate (Proventil, Ventolin Hfa) 2 puff Q4HP PRN INH SOB/WHEEZING 07/29/19 23:00 Amlodipine Besylate (Norvasc) 2.5 mg DAILY PO 07/30/19 09:00 08/06/19 09:40 Aripiprazole (AbiLIFY) 2 mg QHS PO 08/01/19 21:00 08/06/19 12:38 DC 08/05/19 20:50 Aripiprazole (AbiLIFY) 4 mg QHS PO 08/06/19 21:00 08/06/19 20:25 Artificial Tears (Akwa Tears) 1 drop BID OU 07/30/19 09:00 08/06/19 20:27 Aspirin (Ecotrin) 81 mg DAILY PO 07/30/19 09:00 08/06/19 09:39 Cetirizine HCl (ZyrTEC) 10 mg QHS PO 07/29/19 21:00 08/06/19 20:24 Docusate Sodium (Colace) 100 mg BID PO 07/29/19 21:00 08/06/19 20:26 Escitalopram Oxalate (Lexapro) 5 mg QHS PO 07/29/19 21:00 07/30/19 13:30 DC 07/29/19 23:36 Escitalopram Oxalate (Lexapro) 10 mg QHS PO 08/01/19 21:00 08/06/19 12:38 DC 08/05/19 20:51 Escitalopram Oxalate (Lexapro) 15 mg QHS PO 07/30/19 21:00 08/01/19 12:14 DC 07/31/19 21:02 Escitalopram Oxalate (Lexapro) 20 mg QHS PO 07/29/19 21:00 07/30/19 13:30 DC 07/29/19 23:36 Ferrous Gluconate (Fergon) 324 mg Q2D PO 07/30/19 09:00 08/05/19 09:14 Furosemide (Lasix) 40 mg DAILY PO 07/30/19 09:00 08/06/19 09:39 Home Med (Med Rec Complete!) ASDIRECTED XX 07/29/19 16:15 07/29/19 16:03 DC Lorazepam (Ativan) 0.25 mg BID PRN PO ANXIETY 07/29/19 23:00 08/05/19 22:59 DC 08/02/19 01:11 Lorazepam (Ativan) 0.25 mg BIDP PRN PO ANXIETY 08/04/19 22:59 Cancel Magnesium Hydroxide (Milk Of Magnesia) 30 ml DAILYPRN PRN PO CONSTIPATION 07/29/19 18:45 Mirtazapine (Remeron) 15 mg QHS PO 07/29/19 21:00 07/30/19 13:30 DC 07/29/19 23:36 Montelukast Sodium (Singulair) 10 mg QHS PO 07/29/19 21:00 08/06/19 20:24 Multivitamins (Ocuvite(I-Flores)) 1 tab DAILY PO 07/30/19 09:00 08/06/19 09:40 Nystatin (Mycostatin Powder, Nystop) UNDER BREASTS & TO GR... BIDP PRN TOP RASH 07/29/19 23:00 Omeprazole (PriLOSEC) 40 mg BID PO 08/02/19 21:00 08/06/19 20:27 Patient Own Medication (Patient'S Own Med) 2 INHALATIONS BID INH 07/31/19 21:00 08/06/19 20:26 Polyethylene Glycol (Miralax) 1 pkt DAILY PO 07/30/19 09:00 08/06/19 09:39 Psyllium Hydrophilic Mucilloid (Metamucil) 1 pkt DAILY PO 07/30/19 09:00 08/01/19 10:02 Quetiapine Fumarate (Seroquel Xr) 100 mg QHS PO 07/29/19 21:00 07/30/19 13:30 DC 07/29/19 23:36 Ramelteon (Rozerem) 8 mg QHS PO 07/30/19 21:00 08/06/19 12:39 DC 08/05/19 20:49 Simvastatin (Zocor) 20 mg QHS PO 07/29/19 21:00 08/06/19 20:26 Solifenacin (Vesicare) 10 mg DAILY PO 07/30/19 09:00 08/06/19 09:40 Spironolactone (Aldactone) 12.5 mg DAILY PO 07/30/19 09:00 08/06/19 09:39 Trazodone HCl (Desyrel) 50 mg QHSP PRN PO INSOMNIA 07/29/19 18:45 08/06/19 20:26 Valsartan (Diovan) 160 mg QHS PO 07/29/19 21:00 08/06/19 20:24 Venlafaxine HCl (Effexor Xr) 37.5 mg DAILY PO 08/02/19 09:00 08/06/19 12:38 DC 08/06/19 09:40 Venlafaxine HCl (Effexor Xr) 75 mg DAILY PO 08/07/19 09:00 Vitamin D (Vitamin D) 3,000 units DAILY PO 07/30/19 09:00 08/06/19 09:40 Allergies Coded Allergies: No Known Allergies (Verified , 06/08/09) DERECK CAMP 5, 2020 08:42
[2019-08-07] MEDS: METAMUCIL (PSYLLIUM) PACKET PO SCH (09:00)
[2019-08-07] MEDS ORDERED: PANTOPRAZOLE 40MG TAB (PROTONIX) PO SCH (09:00)
[2019-08-07] MEDS: DOCUSATE SODIUM 100 MG CAP PO SCH ×2 (09:55→20:30)
[2019-08-07] MEDS: VENLAFAXINE **XR** 75MG CAPSULE PO SCH (09:55)
[2019-08-07] MEDS: MIRALAX *UNIT DOSE* 17GM PACKET PO SCH (09:55)
[2019-08-07] MEDS: FUROSEMIDE 40 MG TAB PO SCH (09:55)
[2019-08-07] MEDS: POLYVINYL ALCOHOL OPHTH SOLN 15 ML(LIQUITEARS) OU SCH ×2 (09:55→20:27)
[2019-08-07] MEDS: OMEPRAZOLE 20 MG CAP PO SCH (09:55)
[2019-08-07] MEDS: SOLIFENACIN 5 MG TAB PO SCH (09:55)
[2019-08-07] MEDS: VITAMIN D 1,000 INTERNATIONAL UNITS TABLET PO SCH (09:55)
[2019-08-07] MEDS: [UNRECOGNIZED DRUG - OTHER] INH SCH ×2 (09:56→20:27)
[2019-08-07] MEDS: OCUVITE 1 TAB PO SCH (09:56)
[2019-08-07] MEDS: ASPIRIN 81 MG ENTERIC TAB PO SCH (09:56)
[2019-08-07] MEDS: FERROUS GLUCONATE 324 MG TAB PO SCH (09:56)
[2019-08-07] MEDS: SPIRONOLACTONE 12.5MG PER 1/2 TABLET PO SCH (09:56)
--- NOTE | 2019-08-07 14:49 | IPNPDOC ---
Subjective Date Seen The patient was seen on 08/07/19. Subjective Chief Complaint/HPI Ms. Parekh is an 83-year-old female who was admitted to the behavioral health unit with the diagnosis of an unspecified psychotic disorder. This morning, nursing reported that patient had abdominal pain, constipation and requested to be seen. Patient is seen sitting up on the side of her bed, she complains of burning at the top of her stomach worse when she eats, and even more so when she eats things like spaghetti. The pain has been ongoing for several weeks now, she denies actual reflux. Patient reported that she had a bowel movement this morning, however, her BM was very small. Patient denied fever, chills, night sweats, malaise, nausea, vomiting, diarrhea, blood in the urine or blood in the stool. Objective Physical Examination General Exam: Positive: Alert, No Acute Distress Eye Exam: Positive: Conjunctiva & lids normal; Negative: Sclera icteric ENT Exam: Positive: Atraumatic, Mucous membr. moist/pink, Other ENT (profoundly hard of hearing) Neck Exam: Positive: Supple; Negative: thyromegaly Chest Exam: Positive: Clear to auscultation, Normal air movement Heart Exam: Positive: Rate Normal, Regular Rhythm, Normal S1, Normal S2; Negative: Gallops, Murmurs, Rubs Telemetry: Positive: No significant arrhythmia Abdomen Exam: Positive: Normal bowel sounds, Soft; Negative: Tenderness, Hepatospenomegaly, Mass Extremity Exam: Positive: Normal pulses; Negative: Clubbing, Cyanosis, Edema Skin Exam: Positive: Nl turgor and temperature Neuro Exam: Positive: Normal Speech; Negative: Normal Gait (uses a Rollator) Psych Exam: Positive: Anxiety Assessment /Plan Assessment Severe depression with psychotic features. Continued management per psychiatry #1. Dyspepsia. Discussed symptoms and treatment with patient. Recommend switching to a GERD diet, then progressing the diet once patient has some relief. Start Protonix and sucralfate as directed #2 Constipation Currently has Colace and milk of magnesia Encouraged to increase fluid intake and walking as much as possible #3. Hypertension. Continue valsartan, amlodipine, spironolactone #4. Hyperlipidemia. Continue simvastatin. #5. COPD Continue home inhalers. #6 OAB. Continue Vesicare Medicine will sign off on this patient at this time. Please reconsult as needed. Plan/VTE VTE Prophylaxis Ordered?: No VS, I&O, 24H, Fishbone Vital Signs/I&O Vital Signs Date Time Temp Pulse Resp B/P (MAP) Pulse Ox O2 Delivery O2 Flow Rate FiO2 08/07/19 09:56 60 110/60 08/07/19 07:14 98.5 14 08/05/19 06:37 Room Air ERIC STOREY PA-C Aug 07, 2019 14:48
[2019-08-07 16:22] VITALS: BP 104/56
[2019-08-07] MEDS: SUCRALFATE SUSP 1GM/10ML UD PO SCH (17:00)
[2019-08-07] MEDS: CETIRIZINE (ZyrTEC) 10 MG TAB PO SCH (20:27)
[2019-08-07] MEDS: MONTELUKAST 10 MG TAB PO SCH (20:27)
[2019-08-07] MEDS: SIMVASTATIN 20 MG TAB PO SCH (20:27)
[2019-08-07] MEDS: ARIPiprazole 2 MG TAB PO SCH (20:27)
[2019-08-07] MEDS: PANTOPRAZOLE 40MG TAB (PROTONIX) PO SCH (20:30)
[2019-08-07] MEDS: VALSARTAN 80 MG TAB (DIOVAN) PO SCH (20:30)
[2019-08-08 06:51] VITALS: BP 167/72
[2019-08-08] MEDS: PANTOPRAZOLE 40MG TAB (PROTONIX) PO SCH ×2 (07:37→21:46)
[2019-08-08] MEDS: SUCRALFATE SUSP 1GM/10ML UD PO SCH ×2 (08:51→16:49)
[2019-08-08] MEDS: METAMUCIL (PSYLLIUM) PACKET PO SCH (09:00)
[2019-08-08] MEDS: DOCUSATE SODIUM 100 MG CAP PO SCH ×2 (09:55→21:46)
[2019-08-08] MEDS: VENLAFAXINE **XR** 75MG CAPSULE PO SCH (09:56)
[2019-08-08] MEDS: VITAMIN D 1,000 INTERNATIONAL UNITS TABLET PO SCH (09:56)
[2019-08-08] MEDS: ASPIRIN 81 MG ENTERIC TAB PO SCH (09:56)
[2019-08-08] MEDS: POLYVINYL ALCOHOL OPHTH SOLN 15 ML(LIQUITEARS) OU SCH ×2 (09:56→21:46)
[2019-08-08] MEDS: MIRALAX *UNIT DOSE* 17GM PACKET PO SCH (09:56)
[2019-08-08] MEDS: SPIRONOLACTONE 12.5MG PER 1/2 TABLET PO SCH (09:56)
[2019-08-08] MEDS: OCUVITE 1 TAB PO SCH (09:56)
[2019-08-08] MEDS: FUROSEMIDE 40 MG TAB PO SCH (09:56)
[2019-08-08] MEDS: SOLIFENACIN 5 MG TAB PO SCH (09:57)
[2019-08-08] MEDS: [UNRECOGNIZED DRUG - OTHER] INH SCH ×2 (09:57→21:46)
--- NOTE | 2019-08-08 10:50 | MHIPNPDOC ---
[facility] Progress Note Progress Note Inpatient Progress Note Corazon Parekh MRN: N/A Date of : N/A Date of Service: 08/08/2019 History of Present Illness The patient is an 83-year-old woman with a reported history of severe depression with psychotic features, presents to [facility] reporting decompensated depression and unusual somatic preoccupation. The patient was referred from the outpatient [facility]. When the patient was evaluated she was a very poor historian, she was generally highly anxious, staring at this provider, unable to discuss a majority of her symptoms. After some prompting, she was able to describe some feelings of depression and memory difficulties. The patient is an 83-year-old woman with a reported history of severe depression with psychotic features, presents to [facility] reporting decompensated depression and unusual somatic preoccupation. The patient was referred from the outpatient [facility]. When the patient was evaluated she was a very poor historian, she was generally highly anxious, staring at this provider, unable to discuss a majority of her symptoms. After some prompting, she was able to describe some feelings of depression and memory difficulties. Interval History The patient was met with today. She reported some discomfort in her epigastric region. She was evaluated yesterday by the hospitalist who has been attempting to help her with gastric reflux. The patient is generally a very poor historian, however, she appears to be improving and is more active on the unit per staff. The patient reports that although she feels hopeless, she is "better." She does make some paradoxical statements that she is "hopeless." However, she appears much more euthymic and attends more groups. Her hygiene and dress is much more colorful today. She reports having the music in her head again, however, she is not able to remember when this last was. Review Of Systems As above Psychotherapy None on this visit. Vital Signs Reviewed. Mental Status Examination General: Well dressed with good hygiene Speech: More fluid. Thought processes: More linear. MSK: No tremors noted. Thought content: Less bizarre. Abstract reasoning, and computation: Impaired Description of associations: Less impaired Description of abnormal or psychotic thoughts: Denies any suicidal or homicidal ideation. Denies any auditory or visual hallucinations. Does not appear to be responding to internal stimuli. Judgment: Impaired Insight: Impaired Orientation: More alert and enganged, more oriented to self and time. Cognition: Mildly improved Recent and remote memory: Impaired Attention span and concentration: Mildly improved Fund of knowledge: Unknown Mood: "I guess you're right." Affect: More euthymic Diagnoses MDD, severe, with psychotic features. Unspecified neurocognitive disorder. Assessment and Plan MDD: Continue Effexor 75 mg extended and Abilify 4 mg nightly. Unspecified neurocognitive disorder: Unclear as to how much is contributing. Disposition The patient will need a further inpatient admission in order to treat her depression, her neurocognitive difficulties and likely will be of little interest in terms of disposition as she lives in a supportive housing [facility] already. She will need further observation to assure toleration of her medications. Time Spent 15 minutes. Sunday Vital Signs Vital Signs Date Time Temp Pulse Resp B/P (MAP) Pulse Ox O2 Delivery O2 Flow Rate FiO2 08/08/19 10:06 77 128/66 08/08/19 06:51 97.6 18 08/05/19 06:37 Room Air Current Medications Current Medications Medications (Trade) Dose Ordered Sig/Maura Route PRN Reason Start Time Stop Time Status Last Admin Dose Admin Acetaminophen (Tylenol Tab) 650 mg Q6HP PRN PO HEADACHE or DISCOMFORT 07/29/19 18:45 Al Hydrox/Mg Hydrox/Simethicone (Mylanta) 30 ml Q4HP PRN PO HEARTBURN/INDIGESTION 07/29/19 18:45 08/05/19 12:43 Albuterol Sulfate (Proventil, Ventolin Hfa) 2 puff Q4HP PRN INH SOB/WHEEZING 07/29/19 23:00 Amlodipine Besylate (Norvasc) 2.5 mg DAILY PO 07/30/19 09:00 08/08/19 10:06 Aripiprazole (AbiLIFY) 2 mg QHS PO 08/01/19 21:00 08/06/19 12:38 DC 08/05/19 20:50 Aripiprazole (AbiLIFY) 4 mg QHS PO 08/06/19 21:00 08/07/19 20:27 Artificial Tears (Akwa Tears) 1 drop BID OU 07/30/19 09:00 08/08/19 09:56 Aspirin (Ecotrin) 81 mg DAILY PO 07/30/19 09:00 08/08/19 09:56 Cetirizine HCl (ZyrTEC) 10 mg QHS PO 07/29/19 21:00 08/07/19 20:27 Docusate Sodium (Colace) 100 mg BID PO 07/29/19 21:00 08/08/19 09:55 Escitalopram Oxalate (Lexapro) 5 mg QHS PO 07/29/19 21:00 07/30/19 13:30 DC 07/29/19 23:36 Escitalopram Oxalate (Lexapro) 10 mg QHS PO 08/01/19 21:00 08/06/19 12:38 DC 08/05/19 20:51 Escitalopram Oxalate (Lexapro) 15 mg QHS PO 07/30/19 21:00 08/01/19 12:14 DC 07/31/19 21:02 Escitalopram Oxalate (Lexapro) 20 mg QHS PO 07/29/19 21:00 07/30/19 13:30 DC 07/29/19 23:36 Ferrous Gluconate (Fergon) 324 mg Q2D PO 07/30/19 09:00 08/07/19 09:56 Furosemide (Lasix) 40 mg DAILY PO 07/30/19 09:00 08/08/19 09:56 Home Med (Med Rec Complete!) ASDIRECTED XX 07/29/19 16:15 07/29/19 16:03 DC Lorazepam (Ativan) 0.25 mg BID PRN PO ANXIETY 07/29/19 23:00 08/05/19 22:59 DC 08/02/19 01:11 Lorazepam (Ativan) 0.25 mg BIDP PRN PO ANXIETY 08/04/19 22:59 Cancel Magnesium Hydroxide (Milk Of Magnesia) 30 ml DAILYPRN PRN PO CONSTIPATION 07/29/19 18:45 Mirtazapine (Remeron) 15 mg QHS PO 07/29/19 21:00 07/30/19 13:30 DC 07/29/19 23:36 Montelukast Sodium (Singulair) 10 mg QHS PO 07/29/19 21:00 08/07/19 20:27 Multivitamins (Ocuvite(I-Flores)) 1 tab DAILY PO 07/30/19 09:00 08/08/19 09:56 Nystatin (Mycostatin Powder, Nystop) UNDER BREASTS & TO GR... BIDP PRN TOP RASH 07/29/19 23:00 Omeprazole (PriLOSEC) 40 mg BID PO 08/02/19 21:00 08/07/19 14:37 DC 08/07/19 09:55 Pantoprazole Sodium (Protonix) 40 mg BID PO 08/08/19 21:00 Pantoprazole Sodium (Protonix) 40 mg BID@0730,2100 PO 08/07/19 21:00 08/08/19 10:07 DC 08/08/19 07:37 Pantoprazole Sodium (Protonix) 40 mg DAILY PO 08/07/19 09:00 08/07/19 14:40 DC 08/07/19 10:23 Patient Own Medication (Patient'S Own Med) 2 INHALATIONS BID INH 07/31/19 21:00 08/08/19 09:57 Polyethylene Glycol (Miralax) 1 pkt DAILY PO 07/30/19 09:00 08/08/19 09:56 Psyllium Hydrophilic Mucilloid (Metamucil) 1 pkt DAILY PO 07/30/19 09:00 08/01/19 10:02 Quetiapine Fumarate (Seroquel Xr) 100 mg QHS PO 07/29/19 21:00 07/30/19 13:30 DC 07/29/19 23:36 Ramelteon (Rozerem) 8 mg QHS PO 07/30/19 21:00 08/06/19 12:39 DC 08/05/19 20:49 Simvastatin (Zocor) 20 mg QHS PO 07/29/19 21:00 08/07/19 20:27 Solifenacin (Vesicare) 10 mg DAILY PO 07/30/19 09:00 08/08/19 09:57 Spironolactone (Aldactone) 12.5 mg DAILY PO 07/30/19 09:00 08/08/19 09:56 Sucralfate (Carafate Suspension) 1 gm BID PO 08/08/19 17:00 08/08/19 10:32 DC Sucralfate (Carafate Suspension) 1 gm BID@0730,1730 PO 08/08/19 17:30 Sucralfate (Carafate Suspension) 1 gm BIDWM PO 08/07/19 18:00 08/08/19 10:07 DC 08/08/19 08:51 Trazodone HCl (Desyrel) 50 mg QHSP PRN PO INSOMNIA 07/29/19 18:45 08/06/19 20:26 Valsartan (Diovan) 160 mg QHS PO 07/29/19 21:00 08/07/19 20:30 Venlafaxine HCl (Effexor Xr) 37.5 mg DAILY PO 08/02/19 09:00 08/06/19 12:38 DC 08/06/19 09:40 Venlafaxine HCl (Effexor Xr) 75 mg DAILY PO 08/07/19 09:00 08/08/19 09:56 Vitamin D (Vitamin D) 3,000 units DAILY PO 07/30/19 09:00 08/08/19 09:56 Allergies Coded Allergies: No Known Allergies (Verified , 06/08/09) DERECK CAMP DO Aug 08, 2019 10:50
[2019-08-08 16:11] VITALS: BP 130/59
[2019-08-08] MEDS ORDERED: SUCRALFATE SUSP 1GM/10ML UD PO SCH (17:00)
[2019-08-08] MEDS: VALSARTAN 80 MG TAB (DIOVAN) PO SCH (21:46)
[2019-08-08] MEDS: MONTELUKAST 10 MG TAB PO SCH (21:46)
[2019-08-08] MEDS: SIMVASTATIN 20 MG TAB PO SCH (21:46)
[2019-08-08] MEDS: ARIPiprazole 2 MG TAB PO SCH (21:46)
[2019-08-08] MEDS: CETIRIZINE (ZyrTEC) 10 MG TAB PO SCH (21:46)
[2019-08-09 05:49] VITALS: BP 120/56
[2019-08-09] MEDS: SUCRALFATE SUSP 1GM/10ML UD PO SCH ×2 (06:44→17:14)
[2019-08-09] MEDS: METAMUCIL (PSYLLIUM) PACKET PO SCH (09:00)
[2019-08-09] MEDS: SPIRONOLACTONE 12.5MG PER 1/2 TABLET PO SCH (09:21)
[2019-08-09] MEDS: OCUVITE 1 TAB PO SCH (09:21)
[2019-08-09] MEDS: ASPIRIN 81 MG ENTERIC TAB PO SCH (09:21)
[2019-08-09] MEDS: MIRALAX *UNIT DOSE* 17GM PACKET PO SCH (09:22)
[2019-08-09] MEDS: SOLIFENACIN 5 MG TAB PO SCH (09:22)
[2019-08-09] MEDS: PANTOPRAZOLE 40MG TAB (PROTONIX) PO SCH ×2 (09:22→21:12)
[2019-08-09] MEDS: FERROUS GLUCONATE 324 MG TAB PO SCH (09:22)
[2019-08-09] MEDS: DOCUSATE SODIUM 100 MG CAP PO SCH ×2 (09:22→21:12)
[2019-08-09] MEDS: POLYVINYL ALCOHOL OPHTH SOLN 15 ML(LIQUITEARS) OU SCH ×2 (09:22→21:12)
[2019-08-09] MEDS: VITAMIN D 1,000 INTERNATIONAL UNITS TABLET PO SCH (09:22)
[2019-08-09] MEDS: FUROSEMIDE 40 MG TAB PO SCH (09:22)
[2019-08-09] MEDS: VENLAFAXINE **XR** 75MG CAPSULE PO SCH (09:22)
[2019-08-09] MEDS: [UNRECOGNIZED DRUG - OTHER] INH SCH ×2 (09:22→21:12)
[2019-08-09 16:08] VITALS: BP 126/60
[2019-08-09] MEDS: SIMVASTATIN 20 MG TAB PO SCH (21:12)
[2019-08-09] MEDS: VALSARTAN 80 MG TAB (DIOVAN) PO SCH (21:12)
[2019-08-09] MEDS: MONTELUKAST 10 MG TAB PO SCH (21:12)
[2019-08-09] MEDS: CETIRIZINE (ZyrTEC) 10 MG TAB PO SCH (21:12)
[2019-08-09] MEDS: ARIPiprazole 2 MG TAB PO SCH (21:12)
[2019-08-10 06:18] VITALS: BP 145/71
[2019-08-10] MEDS: SUCRALFATE SUSP 1GM/10ML UD PO SCH ×2 (06:31→17:06)
[2019-08-10] MEDS: METAMUCIL (PSYLLIUM) PACKET PO SCH (09:00)
[2019-08-10] MEDS: MIRALAX *UNIT DOSE* 17GM PACKET PO SCH (09:28)
[2019-08-10] MEDS: [UNRECOGNIZED DRUG - OTHER] INH SCH ×2 (09:28→21:25)
[2019-08-10] MEDS: POLYVINYL ALCOHOL OPHTH SOLN 15 ML(LIQUITEARS) OU SCH ×2 (09:28→21:24)
[2019-08-10] MEDS: DOCUSATE SODIUM 100 MG CAP PO SCH ×2 (09:29→21:24)
[2019-08-10] MEDS: VENLAFAXINE **XR** 75MG CAPSULE PO SCH (09:29)
[2019-08-10] MEDS: FUROSEMIDE 40 MG TAB PO SCH (09:29)
[2019-08-10] MEDS: SOLIFENACIN 5 MG TAB PO SCH (09:29)
[2019-08-10] MEDS: SPIRONOLACTONE 12.5MG PER 1/2 TABLET PO SCH (09:29)
[2019-08-10] MEDS: ASPIRIN 81 MG ENTERIC TAB PO SCH (09:29)
[2019-08-10] MEDS: VITAMIN D 1,000 INTERNATIONAL UNITS TABLET PO SCH (09:29)
[2019-08-10] MEDS: PANTOPRAZOLE 40MG TAB (PROTONIX) PO SCH ×2 (09:31→21:25)
[2019-08-10] MEDS: OCUVITE 1 TAB PO SCH (09:31)
[2019-08-10 16:19] VITALS: BP 115/56
[2019-08-10] MEDS: MONTELUKAST 10 MG TAB PO SCH (21:25)
[2019-08-10] MEDS: CETIRIZINE (ZyrTEC) 10 MG TAB PO SCH (21:25)
[2019-08-10] MEDS: SIMVASTATIN 20 MG TAB PO SCH (21:25)
[2019-08-10] MEDS: ARIPiprazole 2 MG TAB PO SCH (21:25)
[2019-08-10] MEDS: VALSARTAN 80 MG TAB (DIOVAN) PO SCH (21:38)
[2019-08-11 06:16] VITALS: BP 140/70
[2019-08-11] MEDS: SUCRALFATE SUSP 1GM/10ML UD PO SCH ×2 (06:42→17:15)
[2019-08-11] MEDS: [UNRECOGNIZED DRUG - OTHER] INH SCH ×2 (08:48→21:06)
[2019-08-11] MEDS: OCUVITE 1 TAB PO SCH (08:49)
[2019-08-11] MEDS: VITAMIN D 1,000 INTERNATIONAL UNITS TABLET PO SCH (08:49)
[2019-08-11] MEDS: SPIRONOLACTONE 12.5MG PER 1/2 TABLET PO SCH (08:50)
[2019-08-11] MEDS: FERROUS GLUCONATE 324 MG TAB PO SCH (08:50)
[2019-08-11] MEDS: DOCUSATE SODIUM 100 MG CAP PO SCH (08:50)
[2019-08-11] MEDS: VENLAFAXINE **XR** 75MG CAPSULE PO SCH (08:50)
[2019-08-11] MEDS: ASPIRIN 81 MG ENTERIC TAB PO SCH (08:50)
[2019-08-11] MEDS: SOLIFENACIN 5 MG TAB PO SCH (08:50)
[2019-08-11] MEDS: PANTOPRAZOLE 40MG TAB (PROTONIX) PO SCH ×2 (08:50→21:06)
[2019-08-11] MEDS: FUROSEMIDE 40 MG TAB PO SCH (08:50)
[2019-08-11] MEDS: MIRALAX *UNIT DOSE* 17GM PACKET PO SCH (08:51)
[2019-08-11] MEDS: METAMUCIL (PSYLLIUM) PACKET PO SCH (08:51)
[2019-08-11] MEDS: POLYVINYL ALCOHOL OPHTH SOLN 15 ML(LIQUITEARS) OU SCH ×2 (08:51→21:06)
--- NOTE | 2019-08-11 10:58 | MHIPNPDOC ---
[facility] Progress Note Progress Note Inpatient Progress Note Corazon Parekh MRN: N/A Date of : N/A Date of Service: 08/11/2019 History of Present Illness The patient is an 83-year-old woman with a reported history of severe depression with psychotic features, presents to [facility] reporting decompensated depression and unusual somatic preoccupation. The patient was referred from the outpatient [facility]. When the patient was evaluated she was a very poor historian, she was generally highly anxious, staring at this provider, unable to discuss a majority of her symptoms. After some prompting, she was able to describe some feelings of depression and memory difficulties. The patient is an 83-year-old woman with a reported history of severe depression with psychotic features, presents to [facility] reporting decompensated depression and unusual somatic preoccupation. The patient was referred from the outpatient [facility]. When the patient was evaluated she was a very poor historian, she was generally highly anxious, staring at this provider, unable to discuss a majority of her symptoms. After some prompting, she was able to describe some feelings of depression and memory difficulties. Interval History The patient is met with today. She is doing better and is more fluid in her speech. She has been more active on the unit and has been more conversive. She reports that she is feeling better, although she still has some gastrointestinal reflux, she still reports her mood is better and that her hallucinations have not returned. She reports that she is more able to attend to groups and be more social on the unit. No major behavioral problems over the weekend. Review Of Systems Patient denies any chest pain, shortness of breath, tremors, dizziness or other symptoms related to her medications, reports some GI upset and her previously reported midsternal pain consistent with reflux, seen by hospitalist. Psychotherapy None on this visit. Vital Signs Reviewed. Mental Status Examination General: Well dressed with good hygiene Speech: More fluid. Thought processes: More linear. MSK: No tremors noted. Thought content: No bizarreness detected. Abstract reasoning, and computation: Impaired Description of associations: Less impaired Description of abnormal or psychotic thoughts: Denies any suicidal or homicidal ideation. Denies any auditory or visual hallucinations. Does not appear to be responding to internal stimuli. Judgment: Improved Insight: Improved Orientation: More alert and enganged, more oriented to self and time. Cognition: Mildly improved Recent and remote memory: Impaired Attention span and concentration: Mildly improved Fund of knowledge: Unknown Mood: "I guess I am better." Affect: More euthymic. Diagnoses MDD, severe, with psychotic features. Unspecified neurocognitive disorder. Assessment and Plan MDD: Continue Effexor 75 mg extended and Abilify 4 mg nightly. Unspecified neurocognitive disorder: Unclear as to how much is contributing. Disposition Discharge on Sunday, her supportive living environment requires 2 day's not ice prior to discharge. Time Spent 15 minutes. Sunday Vital Signs Vital Signs Date Time Temp Pulse Resp B/P (MAP) Pulse Ox O2 Delivery O2 Flow Rate FiO2 08/11/19 09:04 64 113/54 08/11/19 06:16 98.1 14 08/05/19 06:37 Room Air Current Medications Current Medications Medications (Trade) Dose Ordered Sig/Maura Route PRN Reason Start Time Stop Time Status Last Admin Dose Admin Acetaminophen (Tylenol Tab) 650 mg Q6HP PRN PO HEADACHE or DISCOMFORT 07/29/19 18:45 Al Hydrox/Mg Hydrox/Simethicone (Mylanta) 30 ml Q4HP PRN PO HEARTBURN/INDIGESTION 07/29/19 18:45 08/05/19 12:43 Albuterol Sulfate (Proventil, Ventolin Hfa) 2 puff Q4HP PRN INH SOB/WHEEZING 07/29/19 23:00 Amlodipine Besylate (Norvasc) 2.5 mg DAILY PO 07/30/19 09:00 08/11/19 09:04 Aripiprazole (AbiLIFY) 2 mg QHS PO 08/01/19 21:00 08/06/19 12:38 DC 08/05/19 20:50 Aripiprazole (AbiLIFY) 4 mg QHS PO 08/06/19 21:00 08/10/19 21:25 Artificial Tears (Akwa Tears) 1 drop BID OU 07/30/19 09:00 08/11/19 08:51 Aspirin (Ecotrin) 81 mg DAILY PO 07/30/19 09:00 08/11/19 08:50 Cetirizine HCl (ZyrTEC) 10 mg QHS PO 07/29/19 21:00 08/10/19 21:25 Docusate Sodium (Colace) 100 mg BID PO 07/29/19 21:00 08/11/19 08:50 Escitalopram Oxalate (Lexapro) 5 mg QHS PO 07/29/19 21:00 07/30/19 13:30 DC 07/29/19 23:36 Escitalopram Oxalate (Lexapro) 10 mg QHS PO 08/01/19 21:00 08/06/19 12:38 DC 08/05/19 20:51 Escitalopram Oxalate (Lexapro) 15 mg QHS PO 07/30/19 21:00 08/01/19 12:14 DC 07/31/19 21:02 Escitalopram Oxalate (Lexapro) 20 mg QHS PO 07/29/19 21:00 07/30/19 13:30 DC 07/29/19 23:36 Ferrous Gluconate (Fergon) 324 mg Q2D PO 07/30/19 09:00 08/11/19 08:50 Furosemide (Lasix) 40 mg DAILY PO 07/30/19 09:00 08/11/19 08:50 Home Med (Med Rec Complete!) ASDIRECTED XX 07/29/19 16:15 07/29/19 16:03 DC Lorazepam (Ativan) 0.25 mg BID PRN PO ANXIETY 07/29/19 23:00 08/05/19 22:59 DC 08/02/19 01:11 Lorazepam (Ativan) 0.25 mg BIDP PRN PO ANXIETY 08/04/19 22:59 Cancel Magnesium Hydroxide (Milk Of Magnesia) 30 ml DAILYPRN PRN PO CONSTIPATION 07/29/19 18:45 Mirtazapine (Remeron) 15 mg QHS PO 07/29/19 21:00 07/30/19 13:30 DC 07/29/19 23:36 Montelukast Sodium (Singulair) 10 mg QHS PO 07/29/19 21:00 08/10/19 21:25 Multivitamins (Ocuvite(I-Flores)) 1 tab DAILY PO 07/30/19 09:00 08/11/19 08:49 Nystatin (Mycostatin Powder, Nystop) UNDER BREASTS & TO GR... BIDP PRN TOP RASH 07/29/19 23:00 Omeprazole (PriLOSEC) 40 mg BID PO 08/02/19 21:00 08/07/19 14:37 DC 08/07/19 09:55 Pantoprazole Sodium (Protonix) 40 mg BID PO 08/08/19 21:00 08/11/19 08:50 Pantoprazole Sodium (Protonix) 40 mg BID@0730,2100 PO 08/07/19 21:00 08/08/19 10:07 DC 08/08/19 07:37 Pantoprazole Sodium (Protonix) 40 mg DAILY PO 08/07/19 09:00 08/07/19 14:40 DC 08/07/19 10:23 Patient Own Medication (Patient'S Own Med) 2 INHALATIONS BID INH 07/31/19 21:00 08/11/19 08:48 Polyethylene Glycol (Miralax) 1 pkt DAILY PO 07/30/19 09:00 08/11/19 08:51 Psyllium Hydrophilic Mucilloid (Metamucil) 1 pkt DAILY PO 07/30/19 09:00 08/01/19 10:02 Quetiapine Fumarate (Seroquel Xr) 100 mg QHS PO 07/29/19 21:00 07/30/19 13:30 DC 07/29/19 23:36 Ramelteon (Rozerem) 8 mg QHS PO 07/30/19 21:00 08/06/19 12:39 DC 08/05/19 20:49 Simvastatin (Zocor) 20 mg QHS PO 07/29/19 21:00 08/10/19 21:25 Solifenacin (Vesicare) 10 mg DAILY PO 07/30/19 09:00 08/11/19 08:50 Spironolactone (Aldactone) 12.5 mg DAILY PO 07/30/19 09:00 08/11/19 08:50 Sucralfate (Carafate Suspension) 1 gm BID PO 08/08/19 17:00 08/08/19 10:32 DC Sucralfate (Carafate Suspension) 1 gm BID@0730,1730 PO 08/08/19 17:30 08/11/19 06:42 Sucralfate (Carafate Suspension) 1 gm BIDWM PO 08/07/19 18:00 08/08/19 10:07 DC 08/08/19 08:51 Trazodone HCl (Desyrel) 50 mg QHSP PRN PO INSOMNIA 07/29/19 18:45 08/06/19 20:26 Valsartan (Diovan) 160 mg QHS PO 07/29/19 21:00 08/10/19 21:38 Venlafaxine HCl (Effexor Xr) 37.5 mg DAILY PO 08/02/19 09:00 08/06/19 12:38 DC 08/06/19 09:40 Venlafaxine HCl (Effexor Xr) 75 mg DAILY PO 08/07/19 09:00 08/11/19 08:50 Vitamin D (Vitamin D) 3,000 units DAILY PO 07/30/19 09:00 08/11/19 08:49 Allergies Coded Allergies: No Known Allergies (Verified , 06/08/09) DERECK CAMP DO Aug 11, 2019 10:58
[2019-08-11 15:38] VITALS: BP 108/54
[2019-08-11] MEDS: VALSARTAN 80 MG TAB (DIOVAN) PO SCH (21:00)
[2019-08-11] MEDS: SIMVASTATIN 20 MG TAB PO SCH (21:06)
[2019-08-11] MEDS: MONTELUKAST 10 MG TAB PO SCH (21:06)
[2019-08-11] MEDS: ARIPiprazole 2 MG TAB PO SCH (21:06)
[2019-08-11] MEDS: CETIRIZINE (ZyrTEC) 10 MG TAB PO SCH (21:06)
[2019-08-12 06:06] VITALS: BP 123/60
[2019-08-12] MEDS: SUCRALFATE SUSP 1GM/10ML UD PO SCH ×2 (06:30→17:20)
[2019-08-12] MEDS: MIRALAX *UNIT DOSE* 17GM PACKET PO SCH (09:00)
[2019-08-12] MEDS: METAMUCIL (PSYLLIUM) PACKET PO SCH (09:00)
[2019-08-12] MEDS: POLYVINYL ALCOHOL OPHTH SOLN 15 ML(LIQUITEARS) OU SCH ×2 (10:20→20:17)
[2019-08-12] MEDS: ASPIRIN 81 MG ENTERIC TAB PO SCH (10:20)
[2019-08-12] MEDS: PANTOPRAZOLE 40MG TAB (PROTONIX) PO SCH ×2 (10:20→20:19)
[2019-08-12] MEDS: FUROSEMIDE 40 MG TAB PO SCH (10:20)
[2019-08-12] MEDS: SOLIFENACIN 5 MG TAB PO SCH (10:21)
[2019-08-12] MEDS: OCUVITE 1 TAB PO SCH (10:21)
[2019-08-12] MEDS: [UNRECOGNIZED DRUG - OTHER] INH SCH ×2 (10:22→20:19)
[2019-08-12] MEDS: SPIRONOLACTONE 12.5MG PER 1/2 TABLET PO SCH (10:24)
[2019-08-12] MEDS: VITAMIN D 1,000 INTERNATIONAL UNITS TABLET PO SCH (10:24)
[2019-08-12] MEDS: VENLAFAXINE **XR** 75MG CAPSULE PO SCH (10:24)
--- NOTE | 2019-08-12 10:46 | MHIPNPDOC ---
[facility] Progress Note Progress Note Inpatient Progress Note Corazon Parekh MRN: N/A Date of : N/A Date of Service: 08/12/2019 History of Present Illness The patient is an 83-year-old woman with a reported history of severe depression with psychotic features, presents to [facility] reporting decompensated depression and unusual somatic preoccupation. The patient was referred from the outpatient [facility]. When the patient was evaluated she was a very poor historian, she was generally highly anxious, staring at this provider, unable to discuss a majority of her symptoms. After some prompting, she was able to describe some feelings of depression and memory difficulties. The patient is an 83-year-old woman with a reported history of severe depression with psychotic features, presents to [facility] reporting decompensated depression and unusual somatic preoccupation. The patient was referred from the outpatient [facility]. When the patient was evaluated she was a very poor historian, she was generally highly anxious, staring at this provider, unable to discuss a majority of her symptoms. After some prompting, she was able to describe some feelings of depression and memory difficulties. Interval History The patient is met with today. She is doing much improved, she reports that otherwise she is doing well and feels much less depressed. She is speaking in full sentences and her memory has improved. She has been attending more groups. The only complaint she has is that she has had some diarrhea, the hospitalist had lowered her Colace. Other than that the patient reports no return of her auditory hallucinations and is feeling motivated for return home tomorrow. Review Of Systems Patient denies any chest pain, shortness of breath, tremors, dizziness or other symptoms related to her medications, reports some GI upset and her previously reported midsternal pain consistent with reflux, seen by hospitalist. Psychotherapy None on this visit. Vital Signs Reviewed. Mental Status Examination General: Well dressed with good hygiene Speech: More fluid. Thought processes: More linear. MSK: No tremors noted. Thought content: No bizarreness detected. Abstract reasoning, and computation: Intact Description of associations: Intact Description of abnormal or psychotic thoughts: Denies any suicidal or homicidal ideation. Denies any auditory or visual hallucinations. Does not appear to be responding to internal stimuli. Judgment: Improved Insight: Improved Orientation: More alert and enganged, more oriented to self and time. Cognition: Much improved Recent and remote memory: Greatly improved Attention span and concentration: Intact Fund of knowledge: Adequate Mood: "I guess I am better." Affect: Euthymic. 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 Unspecified neurocognitive disorder. Assessment and Plan MDD: Continue Effexor 75 mg extended and Abilify 4 mg nightly. Unspecified neurocognitive disorder: Unclear as to how much is contributing. Disposition Discharge tomorrow. Time Spent 15 minutes. Sunday Vital Signs Vital Signs Date Time Temp Pulse Resp B/P (MAP) Pulse Ox O2 Delivery O2 Flow Rate FiO2 08/12/19 06:06 98.1 60 16 123/60 (81) Current Medications Current Medications Medications (Trade) Dose Ordered Sig/Maura Route PRN Reason Start Time Stop Time Status Last Admin Dose Admin Acetaminophen (Tylenol Tab) 650 mg Q6HP PRN PO HEADACHE or DISCOMFORT 07/29/19 18:45 Al Hydrox/Mg Hydrox/Simethicone (Mylanta) 30 ml Q4HP PRN PO HEARTBURN/INDIGESTION 07/29/19 18:45 08/05/19 12:43 Albuterol Sulfate (Proventil, Ventolin Hfa) 2 puff Q4HP PRN INH SOB/WHEEZING 07/29/19 23:00 Amlodipine Besylate (Norvasc) 2.5 mg DAILY PO 07/30/19 09:00 08/11/19 09:04 Aripiprazole (AbiLIFY) 2 mg QHS PO 08/01/19 21:00 08/06/19 12:38 DC 08/05/19 20:50 Aripiprazole (AbiLIFY) 4 mg QHS PO 08/06/19 21:00 08/11/19 21:06 Artificial Tears (Akwa Tears) 1 drop BID OU 07/30/19 09:00 08/12/19 10:20 Aspirin (Ecotrin) 81 mg DAILY PO 07/30/19 09:00 08/12/19 10:20 Cetirizine HCl (ZyrTEC) 10 mg QHS PO 07/29/19 21:00 08/11/19 21:06 Docusate Sodium (Colace) 100 mg BID PO 07/29/19 21:00 08/11/19 18:49 DC 08/11/19 08:50 Escitalopram Oxalate (Lexapro) 5 mg QHS PO 07/29/19 21:00 07/30/19 13:30 DC 07/29/19 23:36 Escitalopram Oxalate (Lexapro) 10 mg QHS PO 08/01/19 21:00 08/06/19 12:38 DC 08/05/19 20:51 Escitalopram Oxalate (Lexapro) 15 mg QHS PO 07/30/19 21:00 08/01/19 12:14 DC 07/31/19 21:02 Escitalopram Oxalate (Lexapro) 20 mg QHS PO 07/29/19 21:00 07/30/19 13:30 DC 07/29/19 23:36 Ferrous Gluconate (Fergon) 324 mg Q2D PO 07/30/19 09:00 08/11/19 08:50 Furosemide (Lasix) 40 mg DAILY PO 07/30/19 09:00 08/12/19 10:20 Home Med (Med Rec Complete!) ASDIRECTED XX 07/29/19 16:15 07/29/19 16:03 DC Lorazepam (Ativan) 0.25 mg BID PRN PO ANXIETY 07/29/19 23:00 08/05/19 22:59 DC 08/02/19 01:11 Lorazepam (Ativan) 0.25 mg BIDP PRN PO ANXIETY 08/04/19 22:59 Cancel Magnesium Hydroxide (Milk Of Magnesia) 30 ml DAILYPRN PRN PO CONSTIPATION 07/29/19 18:45 Mirtazapine (Remeron) 15 mg QHS PO 07/29/19 21:00 07/30/19 13:30 DC 07/29/19 23:36 Montelukast Sodium (Singulair) 10 mg QHS PO 07/29/19 21:00 08/11/19 21:06 Multivitamins (Ocuvite(I-Flores)) 1 tab DAILY PO 07/30/19 09:00 08/12/19 10:21 Nystatin (Mycostatin Powder, Nystop) UNDER BREASTS & TO GR... BIDP PRN TOP RASH 07/29/19 23:00 Omeprazole (PriLOSEC) 40 mg BID PO 08/02/19 21:00 08/07/19 14:37 DC 08/07/19 09:55 Pantoprazole Sodium (Protonix) 40 mg BID PO 08/08/19 21:00 08/12/19 10:20 Pantoprazole Sodium (Protonix) 40 mg BID@0730,2100 PO 08/07/19 21:00 08/08/19 10:07 DC 08/08/19 07:37 Pantoprazole Sodium (Protonix) 40 mg DAILY PO 08/07/19 09:00 08/07/19 14:40 DC 08/07/19 10:23 Patient Own Medication (Patient'S Own Med) 2 INHALATIONS BID INH 07/31/19 21:00 08/12/19 10:22 Polyethylene Glycol (Miralax) 1 pkt DAILY PO 07/30/19 09:00 08/11/19 08:51 Psyllium Hydrophilic Mucilloid (Metamucil) 1 pkt DAILY PO 07/30/19 09:00 08/01/19 10:02 Quetiapine Fumarate (Seroquel Xr) 100 mg QHS PO 07/29/19 21:00 07/30/19 13:30 DC 07/29/19 23:36 Ramelteon (Rozerem) 8 mg QHS PO 07/30/19 21:00 08/06/19 12:39 DC 08/05/19 20:49 Simvastatin (Zocor) 20 mg QHS PO 07/29/19 21:00 08/11/19 21:06 Solifenacin (Vesicare) 10 mg DAILY PO 07/30/19 09:00 08/12/19 10:21 Spironolactone (Aldactone) 12.5 mg DAILY PO 07/30/19 09:00 08/12/19 10:24 Sucralfate (Carafate Suspension) 1 gm BID PO 08/08/19 17:00 08/08/19 10:32 DC Sucralfate (Carafate Suspension) 1 gm BID@0730,1730 PO 08/08/19 17:30 08/12/19 06:30 Sucralfate (Carafate Suspension) 1 gm BIDWM PO 08/07/19 18:00 08/08/19 10:07 DC 08/08/19 08:51 Trazodone HCl (Desyrel) 50 mg QHSP PRN PO INSOMNIA 07/29/19 18:45 08/06/19 20:26 Valsartan (Diovan) 160 mg QHS PO 07/29/19 21:00 08/10/19 21:38 Venlafaxine HCl (Effexor Xr) 37.5 mg DAILY PO 08/02/19 09:00 08/06/19 12:38 DC 08/06/19 09:40 Venlafaxine HCl (Effexor Xr) 75 mg DAILY PO 08/07/19 09:00 08/12/19 10:24 Vitamin D (Vitamin D) 3,000 units DAILY PO 07/30/19 09:00 08/12/19 10:24 Allergies Coded Allergies: No Known Allergies (Verified , 06/08/09) DERECK CAMP DO Aug 12, 2019 10:46
[2019-08-12 17:59] VITALS: BP 133/60
[2019-08-12] MEDS: CETIRIZINE (ZyrTEC) 10 MG TAB PO SCH (20:18)
[2019-08-12] MEDS: MONTELUKAST 10 MG TAB PO SCH (20:18)
[2019-08-12] MEDS: VALSARTAN 80 MG TAB (DIOVAN) PO SCH (20:18)
[2019-08-12] MEDS: ARIPiprazole 2 MG TAB PO SCH (20:18)
[2019-08-12] MEDS: SIMVASTATIN 20 MG TAB PO SCH (20:19)
[2019-08-13 06:40] VITALS: BP 128/60
[2019-08-13] MEDS: ASPIRIN 81 MG ENTERIC TAB PO SCH (09:43)
[2019-08-13] MEDS: OCUVITE 1 TAB PO SCH (09:43)
[2019-08-13] MEDS: SPIRONOLACTONE 12.5MG PER 1/2 TABLET PO SCH (09:43)
[2019-08-13] MEDS: VITAMIN D 1,000 INTERNATIONAL UNITS TABLET PO SCH (09:43)
[2019-08-13] MEDS: SUCRALFATE SUSP 1GM/10ML UD PO SCH (09:43)
[2019-08-13 09:44] VITALS: BP 128/60
[2019-08-13] MEDS: VENLAFAXINE **XR** 75MG CAPSULE PO SCH (09:44)
[2019-08-13] MEDS: PANTOPRAZOLE 40MG TAB (PROTONIX) PO SCH (09:44)
[2019-08-13] MEDS: SOLIFENACIN 5 MG TAB PO SCH (09:44)
[2019-08-13] MEDS: FUROSEMIDE 40 MG TAB PO SCH (09:44)
[2019-08-13] MEDS: POLYVINYL ALCOHOL OPHTH SOLN 15 ML(LIQUITEARS) OU SCH (09:45)
[2019-08-13] MEDS: [UNRECOGNIZED DRUG - OTHER] INH SCH (09:45)
[2019-08-13] MEDS: METAMUCIL (PSYLLIUM) PACKET PO SCH (09:45)
[2019-08-13] MEDS: MIRALAX *UNIT DOSE* 17GM PACKET PO SCH (09:45)
[2019-08-13] MEDS ORDERED: VENL75CA47 PO (10:13)
[2019-08-13] MEDS ORDERED: ABIL1TAB13 PO (10:13)
--- NOTE | 2019-08-13 10:44 | MHDSPDOC ---
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 Unspecified neurocognitive disorder. History of Present Illness The patient is an 83-year-old woman with a reported history of severe depression with psychotic features, presents to [facility] reporting decomp ensated depression and unusual somatic preoccupation. The patient was referred from the outpatient [facility]. When the patient was evaluated she was a very poor historian, she was generally highly anxious, staring at this provider, unable to discuss a majority of her symptoms. After some prompting, she was able to describe some feelings of depression and memory difficulties. The patient is an 83-year-old woman with a reported history of severe depression with psychotic features, presents to [facility] reporting decompensated depression and unusual somatic preoccupation. The patient was referred from the outpatient [facility]. When the patient was evaluated she was a very poor historian, she was generally highly anxious, staring at this provider, unable to discuss a majority of her symptoms. After some prompting, she was able to describe some feelings of depression and memory difficulties. Consultants Involved Hospitalist/PCP screening Treatment and Progress On The Unit The patient was admitted to the inpatient unit. She was observed and cross tapered on to Effexor augmented with Abilify, increased to a total of 75 mg/4 mg with good effects. She initially was very depressed and stayed in her room interacting very little with anyone. However, after the Effexor and Abilify were started she made good progress becoming more social, attending groups, and she became much more fluid in her speech, and her memory made improvements suggesting a significant depression was at play. After improving greatly, the patient was triaged for discharge. Discharge Assessment 83-year-old woman with a history of depression and possible neurocognitive problems presents for depression treatment. After starting Effexor with augmentation she does well and improves significantly. The patient at the time of discharge did not meet criteria for involuntary admission/extension due to having a normal mental status exam, fair insight into the situation, They are engaged in the discharge process, as well as being friendly and amenable in behavioral control and havent been engaging in any observed concerning behavior or ideation recently. They decline voluntary extension/admission at this time and must be discharged in good fam, as Im unable to make a case for holding the patient against their will. They may have historical risk factors of admissions and other interactions with psychiatry however, those are not modifiable from a clinical perspective. The patient will need to be discharged in good fam. Mental Status Examination General: Well dressed with good hygiene Speech: Spontaneous and fluid Thought processes: Linear and logical MSK: Baseline level of gait, requires walker Thought content: Future orientated Abstract reasoning, and computation: Intact Description of associations: Intact Description of abnormal or psychotic thoughts: Denies any suicidal or homicidal ideation. Denies any auditory or visual hallucinations. Does not appear to be responding to internal stimuli. Does not appear to be endorsing any bizarre or paranoid ideation Judgment: fair Insight: fair Orientation: Alert and orientated 3 Cognition: Greatly improved Recent and remote memory: Intact Attention span and concentration: Intact Fund of knowledge: Adequate Mood: "okay" Affect: Euthymic with a full range Follow Up The social work team worked during the predischarge meeting in order to evaluate for further issues of lethality address them fully before discharge. They worked on safety planning with the patient's family members in order to ensure that the patient will have a safe and effective discharge. Time Spent The amount of time spent in the coordination of care for this patient was approximately 45 minutes. Sunday Vital Signs/I&Os Vital Signs Date Time Temp Pulse Resp B/P (MAP) Pulse Ox O2 Delivery O2 Flow Rate FiO2 08/13/19 09:44 77 128/60 08/13/19 06:40 98.1 14 Medications Scheduled Amlodipine Besylate (Amlodipine Besylate) 2.5 Mg Tablet, 2.5 MG PO DAILY, (Reported) Aripiprazole (Abilify) 2 Mg Tablet, 4 MG PO QHS for thoughts for 7 Days, #14 Aspirin (Aspir 81) 81 Mg Tablet.dr, 81 MG PO DAILY, (Reported) Cetirizine HCl (Cetirizine HCl) 10 Mg Tablet, 10 MG PO QHS, (Reported) Cholecalciferol (Vitamin D3) (Vitamin D3) 3,000 Unit Tablet, 3,000 UNIT PO DAILY, (Reported) Docusate Sodium (Colace) 100 Mg Capsule, 100 MG PO BID, (Reported) Ferrous Gluconate (Ferrous Gluconate) 324 Mg Tablet, 324 MG PO Q2D, (Reported) Furosemide (Furosemide) 40 Mg Tablet, 40 MG PO DAILY, (Reported) Lidocaine HCl (Aspercreme Lidocaine) 73 Ml Liqd.kelly, 1 APLCT TOP DAILY, (Reported) APPLY TO TOES Montelukast Sodium (Montelukast Sodium) 10 Mg Tablet, 10 MG PO QHS, (Reported) Omeprazole (Omeprazole) 40 Mg Capsule.dr, 40 MG PO BID, (Reported) Polyethylene Glycol 3350 (Miralax) 119 Gm Powder, 17 GM PO DAILY, (Reported) dilute in 8 ounces of water or juice Propylene Glycol/Peg 400 (Systane 0.3-0.4% Eye Drops) 15 Ml Drops, 1 DROP OU BID, (Reported) Psyllium Husk (with Sugar) (Metamucil Powder) 575 Gm Powder, 1 TSP PO DAILY, (Reported) MIXED WITH 8 OZ OF LIQUID Simvastatin (Simvastatin) 20 Mg Tablet, 20 MG PO QHS, (Reported) Solifenacin Succinate (Vesicare) 10 Mg Tablet, 10 MG PO DAILY, (Reported) Spironolactone (Spironolactone) 25 Mg Tablet, 12.5 MG PO DAILY, (Reported) Valsartan (Valsartan) 160 Mg Tablet, 160 MG PO QHS, (Reported) Venlafaxine HCl (Venlafaxine HCl ER) 75 Mg Cap.er.24h, 75 MG PO DAILY for mood for 7 Days, #7 Vit A/Vit C/Vit E/Zinc/Copper (Preservision Areds Tablet) 1 Each Tablet, 1 TAB PO DAILY, (Reported) Scheduled PRN Acetaminophen (Acetaminophen) 325 Mg Tablet, 650 MG PO Q6H PRN for PAIN, (Reported) Albuterol Sulfate (Albuterol Sulfate) 2.5 Mg/0.5 Ml Vial.neb, 1 VIAL NEB QID PRN for SHORTNESS OF BREATH, (Reported) Albuterol Sulfate (Ventolin Hfa) 18 Gm Hfa.aer.ad, 2 PUFF INH Q4H PRN for SOB/WHEEZING, (Reported) Mometasone/Formoterol (Dulera 200 Mcg/5 Mcg Inhaler) 13 Gm Hfa.aer.ad, 2 PUFF INH BID PRN for COPD, (Reported) Nystatin (Nystatin Powder) 15 Gm Powder, 1 APLCT TOP BID PRN for RASH, (Reported) APPLY UNDER BREATS AND GROIN Sennosides (Ex-Lax) 15 Mg Tablet, 15 MG PO Q2D PRN for CONSTIPATION, (Reported) Allergies Coded Allergies: No Known Allergies (Verified , 06/08/09) DERECK CAMP DO Aug 13, 2019 10:44
== END 2019-08-13 11:18 | disposition home or self-care (01) | DRG 885 ==
LOC: M ED 14:57 → M ED INP 18:39 → M PSY 20:00
PROVIDERS: ADMIT Psychiatry & Neurology Psychiatry; ATTEND Psychiatry & Neurology Addiction Medicine
DX: F33.42 Major depressive disorder, recurrent, in full remission (principal); R41.9 Unspecified symptoms and signs involving cognitive functions and awareness; Z79.899 Other long term (current) drug therapy; Z79.82 Long term (current) use of aspirin; I10 Essential (primary) hypertension; J44.9 Chronic obstructive pulmonary disease, unspecified; E11.9 Type 2 diabetes mellitus without complications; E78.5 Hyperlipidemia, unspecified; Z87.891 Personal history of nicotine dependence; K59.00 Constipation, unspecified

== ENCOUNTER → 2021-05-09 | Outpatient (REF) | payer MEDICARE, BC ==
[~2021-05-09] MED LIST changes: +ABIL1TAB13 PO; +ACET1TAB55 PO; +ALB2.5NEB NEB; +AMLO1TAB24 PO; +AMLO2.5T3 PO; -AMLO5TAB6 PO; +ASPE4LIQ TOP; +ASPI81TA86 PO; +CETI-24 PO; +COLA100C5 PO; +DULE200A INH; +ESCI20TA16 PO; +EX-L15TA PO; +FERR32TA PO; +LEXA5TAB13 PO; +META28.32 PO; +MIRA3350 PO; +MIRT-62 PO; +MONT10TA10 PO; +NYST1POW9 TOP; +OCUVTAB4 PO; +OMEP-221 PO; +QUET1TAB17; -QUET1TAB7; +SERO50TA4 PO; +SIMV20TA22 PO; +SPIR-10 PO; +SYST1SOL OU; +VALS1TAB67 PO; +VENL75CA47 PO; +VENTAER INH
[2021-05-10 13:21] LABS: THYROGLOBULIN ANTIBODY 15.2 U/ML (<60.0); THYROID PEROXIDASE ANTIBODY 34.6 U/ML (<60.0)
== END ==
LOC: M LAB REF 11:21
PROVIDERS: ATTEND Internal Medicine
DX: D72.829 Elevated white blood cell count, unspecified (principal); E03.9 Hypothyroidism, unspecified

== ENCOUNTER → 2021-05-13 | Outpatient (REF) | payer MEDICARE, BC ==
[~2021-05-13] MED LIST changes: -MONT10TA10 PO; +MONT10TA97 PO; -OMEP-221 PO; +OMEP40CA5 PO
[2021-05-13 11:06] LABS: APPEARANCE, URINE CLEAR (CLEAR); BACTERIA, URINE AUTO NEGATIVE (NEGATIVE); BILIRUBIN, URINE AUTO NEGATIVE (NEGATIVE); BLOOD, URINE BLOOD NEGATIVE (NEGATIVE); COLOR, URINE STRAW (YELLOW); GLUCOSE, URINE (UA) AUTO NEGATIVE (NEGATIVE); KETONE, URINE AUTO NEGATIVE (NEGATIVE); LEUKOCYTE ESTERASE, URINE AUTO NEGATIVE (NEGATIVE); NITRITE, URINE AUTO NEGATIVE (NEGATIVE); PROTEIN, URINE AUTO NEGATIVE (NEGATIVE); RBC, URINE AUTO 0 /HPF (0-3); SPECIFIC GRAVITY URINE AUTO 1.006 (1.002-1.035); SQUAMOUS EPITHELIAL CELL UR AU 0 /HPF (0-6); UROBILINOGEN, URINE AUTO 0.2 mg/dL (0.0-2.0); WBC, URINE AUTO 1 /HPF (0-3)
== END ==
LOC: M LAB REF 09:33
PROVIDERS: ATTEND Internal Medicine
DX: D72.829 Elevated white blood cell count, unspecified (principal); Z79.51 Long term (current) use of inhaled steroids; Z79.899 Other long term (current) drug therapy; Z79.82 Long term (current) use of aspirin

== ENCOUNTER → 2021-06-06 | Outpatient (REF) | payer MEDICARE, BC ==
[~2021-06-06] MED LIST changes: +MONT10TA10 PO; -MONT10TA97 PO; +OMEP-221 PO; -OMEP40CA5 PO
[2021-06-08 10:07] LABS: JAK2 MUTATIONS FOR PATH SENDOU See Pathology Report
== END ==
LOC: M LAB REF 11:46
PROVIDERS: ATTEND Internal Medicine
DX: D72.829 Elevated white blood cell count, unspecified (principal)

== ENCOUNTER → 2021-08-29 | Outpatient (REF) | payer MEDICARE, BC ==
[~2021-08-29] MED LIST changes: -MONT10TA10 PO; +MONT10TA97 PO; -OMEP-221 PO; +OMEP40CA5 PO
== END ==
LOC: M LAB REF 16:26
PROVIDERS: ATTEND Internal Medicine
DX: N39.0 Urinary tract infection, site not specified (principal)

== ENCOUNTER → 2021-11-10 | Outpatient (CLI) | payer MEDICARE, BC ==
[~2021-11-10] MED LIST changes: +ALBU2.5V10 INH; -ALBU83IN INH
== END ==
LOC: M PLAIMG 13:26
PROVIDERS: ATTEND Internal Medicine
DX: E87.1 Hypo-osmolality and hyponatremia (principal)

== ENCOUNTER 2022-04-04 18:57 | Emergency (ER) | payer MEDICARE, BC ==
[~2022-04-04] VITALS: Ht 160 cm; Wt 80.0 kg
[~2022-04-04 18:57] MED LIST changes: -DULE200A IN; -DULE200A INH; +MOME13HF7 IN; +MOME13HF7 INH
[2022-04-04 19:40] VITALS: BP 118/55
[2022-04-04] MEDS ORDERED: BOOSTRIX/ADACEL VACCINE (DIPHTH/PERTUSS/ACELL/TETANUS) 0.5ML SYR IM ONE (20:10)
[2022-04-04] MEDS ORDERED: ARIP1TAB6 PO (20:29)
[2022-04-04] MEDS ORDERED: ELIQ5TAB PO (20:29)
[2022-04-04] MEDS ORDERED: EFFE75CA2 PO (20:29)
[2022-04-04] MEDS ORDERED: LEVO25TA5 PO (20:29)
[2022-04-04] MEDS ORDERED: METO1TAB87 PO (20:29)
[2022-04-04] MEDS ORDERED: HOME MED LIST COMPLETE! XX SCH (20:30)
== END 2022-04-05 01:39 | disposition home or self-care (01) ==
LOC: EDBD 18:57 → M ED 18:57
DX: S01.81XA Laceration without foreign body of other part of head, initial encounter (principal); W01.0XXA Fall on same level from slipping, tripping and stumbling without subsequent striking against object, initial encounter; K21.9 Gastro-esophageal reflux disease without esophagitis; E03.9 Hypothyroidism, unspecified; I10 Essential (primary) hypertension; Z86.79 Personal history of other diseases of the circulatory system; Z99.89 Dependence on other enabling machines and devices; Z91.048 Other nonmedicinal substance allergy status; Z79.51 Long term (current) use of inhaled steroids; Z79.899 Other long term (current) drug therapy; Z79.811 Long term (current) use of aromatase inhibitors; Z23 Encounter for immunization

== ENCOUNTER 2022-04-07 12:58 | Emergency (ER) | payer MEDICARE, BC ==
[~2022-04-07] VITALS: Ht 160 cm; Wt 82.4 kg
[~2022-04-07 12:58] MED LIST changes: +ARIP1TAB6 PO; +EFFE75CA2 PO; +ELIQ5TAB PO; +LEVO25TA5 PO; +METO1TAB87 PO
[2022-04-07 13:38] LABS: VENOUS BASE EXCESS -0.5 (-2.0-2.0); VENOUS HCO3 25.1 MEQ/L (23.0-27.0); VENOUS O2 SATURATION 72.1 % (60.0-80.0); VENOUS PARTIAL PRESSURE CO2 45.1 mmHg (38.0-50.0); VENOUS PARTIAL PRESSURE O2 38.1 mmHg (30.0-50.0); VENOUS PH 7.364 UNITS (7.330-7.430); VENOUS STANDARD HCO3 23.5 MEQ/L; VENOUS TOTAL CO2 26.5 MEQ/L (24.0-28.0)
[2022-04-07 13:44] LABS: BASO # 0.1 10^3/uL (0.0-0.2); BASO % 0.5 % (0.0-1.0); EOS # 0.6 10^3/uL (0.0-0.5); EOS % 4.5 % (0.0-3.0); LYMPH # 1.6 10^3/uL (1.5-5.0); LYMPH % 12.8 % (24.0-44.0); MEAN CORPUSCULAR HEMOGLOBIN 30.6 pg (27.0-33.0); MEAN CORPUSCULAR HGB CONC 33.3 g/dl (32.0-36.5); MEAN CORPUSCULAR VOLUME 91.8 fl (80.0-96.0); MONO # 1.4 10^3/uL (0.0-0.8); MONO % 11.5 % (2.0-8.0); NEUTROPHILS # 8.6 10^3/uL (1.5-8.5); NEUTROPHILS % 68.8 % (36.0-66.0); PLATELET COUNT, AUTOMATED 246 10^3/uL (150-450); RED BLOOD COUNT 3.92 10^6/uL (4.00-5.40); WHITE BLOOD COUNT 12.6 10^3/uL (4.0-10.0)
[2022-04-07 14:12] LABS: RSV AMPLIFICATION NEGATIVE (NEGATIVE)
[2022-04-07 14:20] LABS: ALBUMIN 2.8 GM/DL (3.2-5.2); ALT/SGPT 21 U/L (12-78); BILIRUBIN,DIRECT 0.2 MG/DL (0.0-0.2); BILIRUBIN,TOTAL 0.6 MG/DL (0.2-1.0); BLOOD UREA NITROGEN 15 MG/DL (7-18); CARBON DIOXIDE LEVEL 25 MEQ/L (21-32); CHLORIDE LEVEL 97 MEQ/L (98-107); GLOMERULAR FILTRATION RATE > 60.0 (>32); GLUCOSE, FASTING 121 MG/DL (70-100); POTASSIUM SERUM 4.1 MEQ/L (3.5-5.1); SODIUM LEVEL 130 MEQ/L (136-145); TOTAL PROTEIN 6.5 GM/DL (6.4-8.2)
[2022-04-07 14:27] LABS: INR 1.35; PROTHROMBIN TIME 16.9 SECONDS (12.5-14.5)
[2022-04-07 14:28] LABS: PARTIAL THROMBOPLASTIN TIME 39.3 SECONDS (24.8-34.2)
[2022-04-07 14:29] LABS: CK-MB VALUE MASS < 1.0 NG/ML (<3.6); CPK CREATINE PHOSPHOKINASE 50 U/L (26-192)
[2022-04-07] MEDS ORDERED: IPRA6SP NARES (15:17)
[2022-04-07] MEDS ORDERED: BENZ-18 PO (15:17)
[2022-04-07] MEDS ORDERED: ACET1TAB55 PO (15:17)
[2022-04-07] MEDS ORDERED: VITA30004 PO (15:17)
[2022-04-07] MEDS ORDERED: HOME MED LIST COMPLETE! XX SCH (15:25)
[2022-04-07] MEDS ORDERED: INSULIN REGULAR 100UNITS IN 0.9% SODIUM CHLORIDE 100ML IVBAG As Ordered ONE (16:15)
[2022-04-07] MEDS ORDERED: CEFDINIR 300 MG CAP (OMNICEF) PO ONE (16:45)
[2022-04-07] MEDS ORDERED: CEFD300C41 PO (16:52)
[2022-04-07] MEDS ORDERED: [UNRECOGNIZED DRUG - REMARK] (16:52)
[2022-04-07 17:00] VITALS: BP 139/65
== END 2022-04-07 17:16 | disposition home or self-care (01) ==
LOC: EDBD 12:58 → M ED 13:25
DX: N39.0 Urinary tract infection, site not specified (principal); R53.1 Weakness; R94.31 Abnormal electrocardiogram [ECG] [EKG]; E11.9 Type 2 diabetes mellitus without complications; I10 Essential (primary) hypertension; J45.909 Unspecified asthma, uncomplicated; E78.5 Hyperlipidemia, unspecified; K21.9 Gastro-esophageal reflux disease without esophagitis; Z91.048 Other nonmedicinal substance allergy status; Z79.51 Long term (current) use of inhaled steroids; Z79.811 Long term (current) use of aromatase inhibitors; Z79.4 Long term (current) use of insulin

== ENCOUNTER → 2022-07-10 | Outpatient (REF) ==
[~2022-07-10] MED LIST changes: +BENZ-18 PO; +CEFD300C41 PO; +IPRA6SP NARES; +[UNRECOGNIZED DRUG - REMARK]
[2022-07-10 10:33] LABS: HEMATOCRIT 43.6 % (36.0-47.0); HEMOGLOBIN 14.1 g/dl (12.0-15.5); MEAN CORPUSCULAR HEMOGLOBIN 29.2 pg (27.0-33.0); MEAN CORPUSCULAR HGB CONC 32.3 g/dl (32.0-36.5); MEAN CORPUSCULAR VOLUME 90.3 fl (80.0-96.0); PLATELET COUNT, AUTOMATED 262 10^3/uL (150-450); RED BLOOD COUNT 4.83 10^6/uL (4.00-5.40); WHITE BLOOD COUNT 9.9 10^3/uL (4.0-10.0)
[2022-07-10 10:58] LABS: BLOOD UREA NITROGEN 15 MG/DL (9-23); CALCIUM LEVEL 9.2 MG/DL (8.3-10.6); CARBON DIOXIDE LEVEL 26 MMOL/L (20-31); CHLORIDE LEVEL 100 MMOL/L (98-107); CREATININE FOR GFR 0.72 MG/DL (0.55-1.30); GLOMERULAR FILTRATION RATE > 60.0 (>32); GLUCOSE, FASTING 172 MG/DL (74-106); POTASSIUM SERUM 4.1 MMOL/L (3.5-5.1); SODIUM LEVEL 135 MMOL/L (136-145)
== END ==
PROVIDERS: ATTEND Physician Assistant
DX: J44.9 Chronic obstructive pulmonary disease, unspecified (principal)

== ENCOUNTER → 2022-07-11 | Outpatient (REF) | payer MEDICARE, BC | PROVIDERS: ATTEND Internal Medicine | DX: K44.9 Diaphragmatic hernia without obstruction or gangrene (principal); I51.7 Cardiomegaly ==

== ENCOUNTER → 2022-07-17 | Outpatient (REF) ==
[2022-07-17 10:55] LABS: HEMATOCRIT 43.5 % (36.0-47.0); HEMOGLOBIN 13.9 g/dl (12.0-15.5); MEAN CORPUSCULAR HEMOGLOBIN 29.4 pg (27.0-33.0); PLATELET COUNT, AUTOMATED 243 10^3/uL (150-450); RED BLOOD COUNT 4.73 10^6/uL (4.00-5.40); WHITE BLOOD COUNT 8.7 10^3/uL (4.0-10.0)
[2022-07-17 11:21] LABS: BLOOD UREA NITROGEN 15 MG/DL (9-23); CALCIUM LEVEL 9.2 MG/DL (8.3-10.6); CARBON DIOXIDE LEVEL 26 MMOL/L (20-31); CHLORIDE LEVEL 105 MMOL/L (98-107); CREATININE FOR GFR 0.67 MG/DL (0.55-1.30); GLOMERULAR FILTRATION RATE > 60.0 (>32); GLUCOSE, FASTING 189 MG/DL (74-106); POTASSIUM SERUM 3.5 MMOL/L (3.5-5.1); SODIUM LEVEL 136 MMOL/L (136-145)
== END ==
PROVIDERS: ATTEND Physician Assistant
DX: J44.9 Chronic obstructive pulmonary disease, unspecified (principal)

== ENCOUNTER → 2022-08-02 | Outpatient (REF) ==
[2022-08-02 12:38] LABS: HEMOGLOBIN 13.5 g/dl (12.0-15.5); MEAN CORPUSCULAR HEMOGLOBIN 29.3 pg (27.0-33.0); MEAN CORPUSCULAR HGB CONC 31.4 g/dl (32.0-36.5); MEAN CORPUSCULAR VOLUME 93.3 fl (80.0-96.0); PLATELET COUNT, AUTOMATED 251 10^3/uL (150-450); RED BLOOD COUNT 4.61 10^6/uL (4.00-5.40); WHITE BLOOD COUNT 10.5 10^3/uL (4.0-10.0)
[2022-08-02 13:11] LABS: BLOOD UREA NITROGEN 17 MG/DL (9-23); CALCIUM LEVEL 9.3 MG/DL (8.3-10.6); CARBON DIOXIDE LEVEL 28 MMOL/L (20-31); CHLORIDE LEVEL 102 MMOL/L (98-107); CREATININE FOR GFR 0.65 MG/DL (0.55-1.30); GLOMERULAR FILTRATION RATE > 60.0 (>32); GLUCOSE, FASTING 158 MG/DL (74-106); POTASSIUM SERUM 4.3 MMOL/L (3.5-5.1); SODIUM LEVEL 137 MMOL/L (136-145)
== END ==
PROVIDERS: ATTEND Physician Assistant
DX: J44.9 Chronic obstructive pulmonary disease, unspecified (principal)

== ENCOUNTER → 2022-09-06 | Outpatient (REF) | payer MEDICARE, BC ==
[2022-09-06 11:00] LABS: HEMOGLOBIN 13.6 g/dl (12.0-15.5); MEAN CORPUSCULAR HEMOGLOBIN 29.7 pg (27.0-33.0); MEAN CORPUSCULAR HGB CONC 32.4 g/dl (32.0-36.5); MEAN CORPUSCULAR VOLUME 91.7 fl (80.0-96.0); PLATELET COUNT, AUTOMATED 230 10^3/uL (150-450); RED BLOOD COUNT 4.58 10^6/uL (4.00-5.40); WHITE BLOOD COUNT 10.3 10^3/uL (4.0-10.0)
[2022-09-06 11:32] LABS: BLOOD UREA NITROGEN 20 MG/DL (9-23); CALCIUM LEVEL 9.1 MG/DL (8.3-10.6); CARBON DIOXIDE LEVEL 27 MMOL/L (20-31); CHLORIDE LEVEL 102 MMOL/L (98-107); CREATININE FOR GFR 0.69 MG/DL (0.55-1.30); GLOMERULAR FILTRATION RATE > 60.0 (>32); GLUCOSE, FASTING 161 MG/DL (74-106); POTASSIUM SERUM 4.1 MMOL/L (3.5-5.1); SODIUM LEVEL 139 MMOL/L (136-145)
== END ==
PROVIDERS: ATTEND Internal Medicine
DX: J44.9 Chronic obstructive pulmonary disease, unspecified (principal)

== ENCOUNTER → 2022-09-22 | Outpatient (REF) | payer MEDICARE, BC | PROVIDERS: ATTEND Physician Assistant | DX: R05.9 Cough, unspecified (principal); K44.9 Diaphragmatic hernia without obstruction or gangrene; M25.561 Pain in right knee; Z87.81 Personal history of (healed) traumatic fracture ==

== ENCOUNTER → 2022-09-22 | Outpatient (REF) | payer MEDICARE, BC | PROVIDERS: ATTEND Internal Medicine | DX: R05.9 Cough, unspecified (principal); K44.9 Diaphragmatic hernia without obstruction or gangrene; M25.561 Pain in right knee; Z87.81 Personal history of (healed) traumatic fracture ==

== ENCOUNTER → 2022-10-03 | Outpatient (REF) | payer MEDICARE, BC | PROVIDERS: ATTEND Physician Assistant | DX: R05.9 Cough, unspecified (principal) ==

== ENCOUNTER → 2022-10-03 | Outpatient (REF) | payer MEDICARE, BC | PROVIDERS: ATTEND Internal Medicine | DX: R05.9 Cough, unspecified (principal); K44.9 Diaphragmatic hernia without obstruction or gangrene ==

== ENCOUNTER → 2022-10-04 | Outpatient (REF) | payer MEDICARE, BC ==
[2022-10-04 11:26] LABS: HEMATOCRIT 41.8 % (36.0-47.0); MEAN CORPUSCULAR HEMOGLOBIN 28.8 pg (27.0-33.0); MEAN CORPUSCULAR HGB CONC 31.1 g/dl (32.0-36.5); MEAN CORPUSCULAR VOLUME 92.5 fl (80.0-96.0); PLATELET COUNT, AUTOMATED 225 10^3/uL (150-450); RED BLOOD COUNT 4.52 10^6/uL (4.00-5.40); WHITE BLOOD COUNT 8.9 10^3/uL (4.0-10.0)
[2022-10-04 12:03] LABS: BLOOD UREA NITROGEN 18 MG/DL (9-23); CALCIUM LEVEL 9.3 MG/DL (8.3-10.6); CARBON DIOXIDE LEVEL 28 MMOL/L (20-31); CHLORIDE LEVEL 100 MMOL/L (98-107); CREATININE FOR GFR 0.79 MG/DL (0.55-1.30); GLOMERULAR FILTRATION RATE > 60.0 (>32); GLUCOSE, FASTING 150 MG/DL (74-106); POTASSIUM SERUM 4.2 MMOL/L (3.5-5.1); SODIUM LEVEL 134 MMOL/L (136-145)
== END ==
PROVIDERS: ATTEND Internal Medicine
DX: J44.9 Chronic obstructive pulmonary disease, unspecified (principal)

== ENCOUNTER → 2022-12-07 | Outpatient (REF) | payer MEDICARE, BC ==
[2022-12-07 17:20] LABS: HEMATOCRIT 43.9 % (36.0-47.0); HEMOGLOBIN 13.7 g/dl (12.0-15.5); MEAN CORPUSCULAR HGB CONC 31.2 g/dl (32.0-36.5); PLATELET COUNT, AUTOMATED 248 10^3/uL (150-450); RED BLOOD COUNT 4.72 10^6/uL (4.00-5.40); WHITE BLOOD COUNT 8.5 10^3/uL (4.0-10.0)
[2022-12-07 17:39] LABS: BLOOD UREA NITROGEN 22 MG/DL (9-23); CARBON DIOXIDE LEVEL 32 MMOL/L (20-31); CHLORIDE LEVEL 100 MMOL/L (98-107); CREATININE FOR GFR 0.75 MG/DL (0.55-1.30); GLOMERULAR FILTRATION RATE > 60.0 (>32); GLUCOSE, FASTING 137 MG/DL (74-106); POTASSIUM SERUM 3.9 MMOL/L (3.5-5.1); SODIUM LEVEL 139 MMOL/L (136-145)
== END ==
PROVIDERS: ATTEND Physician Assistant
DX: R05.9 Cough, unspecified (principal); Z79.899 Other long term (current) drug therapy; K44.9 Diaphragmatic hernia without obstruction or gangrene

== ENCOUNTER → 2022-12-07 | Outpatient (REF) | payer MEDICARE, BC | PROVIDERS: ATTEND Internal Medicine | DX: R05.9 Cough, unspecified (principal); K44.9 Diaphragmatic hernia without obstruction or gangrene ==

== ENCOUNTER 2022-12-12 17:46 | Inpatient (IN) | payer MEDICARE, BC ==
[~2022-12-12] VITALS: Ht 162.6 cm; Wt 78.0 kg
[~2022-12-12 17:46] MED LIST changes: -ALBU0.63 INH; -ARIP1TAB4 PO; -BISA10SU27 PR; -CARB15DR51 AU; -CHOL1250 PO; -CLAR10CA3 PO; -DOCU100C17 PO; -FLEEENE12 PR; -IPRA3SP; -LEVO50TA5 PO; -LORA-674 PO; -MILKSUS3 PO; -PEG OU; -PRES10CA2 PO; -SYMB80INH INH; -TORS20TA2 PO; -TROS20TA3 PO
[2022-12-12] MEDS ORDERED: MED REC IN PROGRESS XX SCH (18:35)
[2022-12-12 18:43] LABS: BLOOD UREA NITROGEN 20 MG/DL (9-23); CALCIUM LEVEL 10.5 MG/DL (8.3-10.6); CARBON DIOXIDE LEVEL 27 MMOL/L (20-31); CHLORIDE LEVEL 100 MMOL/L (98-107); CREATININE FOR GFR 0.86 MG/DL (0.55-1.30); GLOMERULAR FILTRATION RATE > 60.0 (>32); GLUCOSE, FASTING 108 MG/DL (74-106); SODIUM LEVEL 136 MMOL/L (136-145)
[2022-12-12 19:00] LABS: HEMATOCRIT 43.1 % (36.0-47.0); HEMOGLOBIN 13.6 g/dl (12.0-15.5); MEAN CORPUSCULAR HGB CONC 31.6 g/dl (32.0-36.5); MEAN CORPUSCULAR VOLUME 91.9 fl (80.0-96.0); PLATELET COUNT, AUTOMATED 226 10^3/uL (150-450); RED BLOOD COUNT 4.69 10^6/uL (4.00-5.40); WHITE BLOOD COUNT 11.7 10^3/uL (4.0-10.0)
[2022-12-12 19:12] LABS: INR 1.09; PARTIAL THROMBOPLASTIN TIME 30.6 SECONDS (24.8-34.2); PROTHROMBIN TIME 14.3 SECONDS (12.5-14.5)
[2022-12-12] MEDS ORDERED: ALBU0.63 INH (19:40)
[2022-12-12] MEDS ORDERED: VALS1TAB67 PO (19:40)
[2022-12-12] MEDS ORDERED: BISA10SU27 PR (19:40)
[2022-12-12] MEDS ORDERED: TORS20TA2 PO (19:40)
[2022-12-12] MEDS ORDERED: ARIP1TAB4 PO (19:40)
[2022-12-12] MEDS ORDERED: IPRA3SP (19:40)
[2022-12-12] MEDS ORDERED: PEG OU (19:40)
[2022-12-12] MEDS ORDERED: DOCU100C17 PO (19:40)
[2022-12-12] MEDS ORDERED: LEVO50TA5 PO (19:40)
[2022-12-12] MEDS ORDERED: SPIR-10 PO (19:40)
[2022-12-12] MEDS ORDERED: CLAR10CA3 PO (19:40)
[2022-12-12] MEDS ORDERED: TROS20TA3 PO (19:40)
[2022-12-12] MEDS ORDERED: CHOL1250 PO (19:40)
[2022-12-12] MEDS ORDERED: PRES10CA2 PO (19:40)
[2022-12-12] MEDS ORDERED: SYMB80INH INH (19:40)
[2022-12-12] MEDS ORDERED: LORA-674 PO (19:40)
[2022-12-12] MEDS ORDERED: VENL75CA47 PO (19:40)
[2022-12-12] MEDS ORDERED: CARB15DR51 AU (19:50)
[2022-12-12] MEDS ORDERED: MILKSUS3 PO (19:50)
[2022-12-12] MEDS ORDERED: FLEEENE12 PR (19:50)
[2022-12-12] MEDS ORDERED: HOME MED LIST COMPLETE! XX SCH (19:55)
[2022-12-12] MEDS ORDERED: IPRATROPIUM 0.5MG/ALBUTEROL 2.5MG INH SOL UD 3ML (DUONEB) NEB ONE (20:15)
[2022-12-12] MEDS ORDERED: MONTELUKAST 10 MG TAB PO SCH (21:00)
[2022-12-12] MEDS ORDERED: ACETAMINOPHEN TAB 650MG DOSE (2X325MG) PO PRN (21:30)
[2022-12-12] MEDS ORDERED: BENZONATATE 100MG CAPSULE PO PRN (21:30)
[2022-12-12] MEDS ORDERED: BISACODYL 10MG SUPP PR PRN (21:30)
[2022-12-12] MEDS ORDERED: NYSTATIN 100,000 UNITS/GM TOPICAL PWD 15GM TOP PRN (21:30)
[2022-12-12] MEDS: METOPROLOL 5 MG/5 ML VIAL IV SCH ×3 (21:35→22:16)
[2022-12-12] MEDS ORDERED: methylPREDNISolone 125MG 2ML VIAL IV ONE (22:00)
[2022-12-12] MEDS ORDERED: cefTRIAXone SOD 1 GM in D5W MINI-BAG PLUS 50 ML IV SCH (22:00)
[2022-12-12] MEDS ORDERED: AZITHROMYCIN INJ 500 MG, VIAL MATE ADAPTER 1 EACH in NS 250 ML IV SCH (23:00)
[2022-12-12] MEDS: DOXYCYCLINE HYCLATE 100 MG in D5W MINI-BAG PLUS 100 ML IV SCH (23:00)
[2022-12-12 23:11] LABS: THYROID STIMULATING HORMONE 4.578 uIU/ML (0.55-4.78)
[2022-12-12] MEDS ORDERED: DEXTROSE 50% 50ML SYRINGE IV PRN (23:15)
[2022-12-12] MEDS ORDERED: GLUCOSE 4GM CHEW TABLET PO PRN (23:15)
[2022-12-12] MEDS: D5W/0.9% SODIUM CHLORIDE 1,000 ML IV SCH (23:15)
[2022-12-12] MEDS ORDERED: GLUCAGON INJ 1MG VIAL SC PRN (23:15)
[2022-12-12] MEDS: SYMBICORT 80/4.5MCG INHALER 6GM INH SCH (23:49)
[2022-12-13] VITALS (9 sets, daily range): BP systolic 118–137; BP diastolic 65–89; TEMP 96.7; O2SAT 91–99
[2022-12-13] MEDS: SIMVASTATIN 20 MG TAB PO SCH ×2 (00:13→22:07)
[2022-12-13] MEDS: OMEPRAZOLE 20MG CAP PO SCH ×3 (00:13→22:06)
[2022-12-13] MEDS: VENLAFAXINE **XR** 75MG CAPSULE PO SCH ×2 (00:13→22:07)
[2022-12-13 00:18] LABS: ABG BASE EXCESS -0.3 (-2.0-2.0); ABG HCO3 23.5 MMOL/L (22.0-26.0); ABG O2 SATURATION 97.9 % (95.0-99.0); ABG PARTIAL PRESSURE O2 105.7 mmHg (75.0-100.0); ABG STANDARD HCO3 24.3 MMOL/L. (22.0-26.0); ABG TOTAL CO2 24.6 MMOL/L (23.0-31.0); ABG pH (ARTERIAL) 7.433 UNITS (7.350-7.450)
[2022-12-13] MEDS: INSULIN LISPRO (NovoLOG) PER UNIT SC SCH ×4 (00:55→18:15)
[2022-12-13] MEDS: IPRATROPIUM 0.02% SOLN 0.5MG 2.5ML NEB INH SCH ×4 (02:23→20:14)
[2022-12-13] MEDS: LEVALBUTEROL 1.25MG/3ML NEB SOLN INH SCH ×4 (02:23→20:14)
[2022-12-13] MEDS ORDERED: methylPREDNISolone 40MG 1ML VIAL IV SCH (04:00)
[2022-12-13] MEDS: LEVOTHYROXINE 50MCG TABLET (0.05MG) PO SCH (05:07)
[2022-12-13 06:31] LABS: HEMATOCRIT 39.1 % (36.0-47.0); HEMOGLOBIN 12.8 g/dl (12.0-15.5); MEAN CORPUSCULAR HEMOGLOBIN 29.4 pg (27.0-33.0); MEAN CORPUSCULAR HGB CONC 32.7 g/dl (32.0-36.5); MEAN CORPUSCULAR VOLUME 89.9 fl (80.0-96.0); PLATELET COUNT, AUTOMATED 198 10^3/uL (150-450); RED BLOOD COUNT 4.35 10^6/uL (4.00-5.40); WHITE BLOOD COUNT 13.8 10^3/uL (4.0-10.0)
[2022-12-13 07:02] LABS: ALBUMIN 3.2 G/DL (3.2-5.2); ALKALINE PHOSPHATASE 98 U/L (46-116); ALT/SGPT 21 U/L (7.0-40); AST/SGOT 17 U/L (<34); BILIRUBIN,TOTAL 0.8 MG/DL (0.3-1.2); BLOOD UREA NITROGEN 19 MG/DL (9-23); CALCIUM LEVEL 9.7 MG/DL (8.3-10.6); CARBON DIOXIDE LEVEL 25 MMOL/L (20-31); CHLORIDE LEVEL 99 MMOL/L (98-107); CREATININE FOR GFR 0.71 MG/DL (0.55-1.30); GLOMERULAR FILTRATION RATE > 60.0 (>32); GLUCOSE, FASTING 220 MG/DL (74-106); MAGNESIUM LEVEL 1.7 MG/DL (1.8-2.4); POTASSIUM SERUM 3.8 MMOL/L (3.5-5.1); SODIUM LEVEL 136 MMOL/L (136-145); TOTAL PROTEIN 6.4 G/DL (5.7-8.2)
[2022-12-13 07:07] LABS: INR 1.1; PROTHROMBIN TIME 14.4 SECONDS (12.5-14.5)
[2022-12-13 07:08] LABS: PARTIAL THROMBOPLASTIN TIME 33.2 SECONDS (24.8-34.2)
[2022-12-13 07:08] LABS: HEMOGLOBIN A1c 6.6 % (4.0-6.0)
[2022-12-13 07:13] LABS: PROCALCITONIN 0.15 ng/ml
[2022-12-13] MEDS: SYMBICORT 80/4.5MCG INHALER 6GM INH SCH ×2 (07:48→20:14)
[2022-12-13] MEDS: METOPROLOL TART 25 MG TABLET PO SCH ×2 (08:34→22:07)
[2022-12-13] MEDS: ARIPiprazole 2 MG TAB PO SCH (08:34)
[2022-12-13] MEDS: DOCUSATE SODIUM 100MG CAPSULE PO SCH ×2 (08:34→22:07)
[2022-12-13] MEDS: FERROUS GLUCONATE 324 MG TAB PO SCH (08:36)
[2022-12-13] MEDS ORDERED: VALSARTAN 80 MG TAB (DIOVAN) PO SCH (09:00)
[2022-12-13] MEDS ORDERED: SPIRONOLACTONE 25 MG TAB PO SCH (09:00)
[2022-12-13] MEDS ORDERED: TORSEMIDE 20 MG TAB PO SCH (09:00)
[2022-12-13] MEDS ORDERED: LORATADINE 10 MG TAB PO SCH (09:00)
[2022-12-13] MEDS: DOXYCYCLINE HYCLATE 100 MG in D5W MINI-BAG PLUS 100 ML IV SCH (10:15)
[2022-12-13] MEDS ORDERED: LEVALBUTEROL HFA 45MCG/ACT 15GM INHALER INH PRN (11:45)
[2022-12-13] MEDS: IPRATROPIUM 0.03% NASAL SPRAY 30 ML (ATROVENT) SCH ×2 (13:12→21:00)
[2022-12-13] MEDS: POLYVINYL ALCOHOL OPHTH SOLN 15ML (LIQUITEARS) OU SCH ×2 (13:33→21:00)
[2022-12-13] MEDS: methylPREDNISolone 40MG 1ML VIAL IV SCH (16:55)
[2022-12-13] MEDS: D5W/0.9% SODIUM CHLORIDE 1,000 ML IV SCH (17:47)
[2022-12-14] VITALS (29 sets, daily range): BP systolic 101–148; BP diastolic 58–81; TEMP 96.4–98.5; O2SAT 88–100
[2022-12-14] MEDS: INSULIN LISPRO (NovoLOG) PER UNIT SC SCH ×5 (01:38→23:52)
[2022-12-14] MEDS: LEVALBUTEROL 1.25MG/3ML NEB SOLN INH SCH ×4 (02:39→20:34)
[2022-12-14] MEDS: IPRATROPIUM 0.02% SOLN 0.5MG 2.5ML NEB INH SCH ×4 (02:39→20:34)
[2022-12-14] MEDS: LEVOTHYROXINE 50MCG TABLET (0.05MG) PO SCH (05:55)
[2022-12-14] MEDS: methylPREDNISolone 40MG 1ML VIAL IV SCH ×2 (05:55→16:28)
[2022-12-14 06:12] LABS: HEMATOCRIT 39.8 % (36.0-47.0); HEMOGLOBIN 12.4 g/dl (12.0-15.5); MEAN CORPUSCULAR HEMOGLOBIN 28.9 pg (27.0-33.0); MEAN CORPUSCULAR HGB CONC 31.2 g/dl (32.0-36.5); MEAN CORPUSCULAR VOLUME 92.8 fl (80.0-96.0); PLATELET COUNT, AUTOMATED 170 10^3/uL (150-450); RED BLOOD COUNT 4.29 10^6/uL (4.00-5.40); WHITE BLOOD COUNT 20.4 10^3/uL (4.0-10.0)
[2022-12-14 06:38] LABS: ALBUMIN 3.2 G/DL (3.2-5.2); ALKALINE PHOSPHATASE 93 U/L (46-116); ALT/SGPT 19 U/L (7.0-40); AST/SGOT 13 U/L (<34); BILIRUBIN,TOTAL 0.7 MG/DL (0.3-1.2); BLOOD UREA NITROGEN 20 MG/DL (9-23); CALCIUM LEVEL 10.1 MG/DL (8.3-10.6); CARBON DIOXIDE LEVEL 27 MMOL/L (20-31); CHLORIDE LEVEL 103 MMOL/L (98-107); CREATININE FOR GFR 0.58 MG/DL (0.55-1.30); GLOMERULAR FILTRATION RATE > 60.0 (>32); GLUCOSE, FASTING 137 MG/DL (74-106); POTASSIUM SERUM 3.7 MMOL/L (3.5-5.1); SODIUM LEVEL 138 MMOL/L (136-145); TOTAL PROTEIN 6.6 G/DL (5.7-8.2)
[2022-12-14] MEDS: SYMBICORT 80/4.5MCG INHALER 6GM INH SCH ×2 (07:15→20:34)
[2022-12-14] MEDS: POLYVINYL ALCOHOL OPHTH SOLN 15ML (LIQUITEARS) OU SCH ×2 (08:50→20:42)
[2022-12-14] MEDS: DOCUSATE SODIUM 100MG CAPSULE PO SCH ×2 (09:00→20:43)
[2022-12-14] MEDS: IPRATROPIUM 0.03% NASAL SPRAY 30 ML (ATROVENT) SCH (09:00)
[2022-12-14] MEDS: METAMUCIL (PSYLLIUM) PACKET PO SCH (09:00)
[2022-12-14] MEDS: LEVEMIR (INSULIN DETEMIR) 1 UNITS/0.01ML SC SCH (09:00)
[2022-12-14] MEDS: D5W/0.9% SODIUM CHLORIDE 1,000 ML IV SCH (09:09)
[2022-12-14] MEDS: cefTRIAXone SOD 1 GM in D5W MINI-BAG PLUS 50 ML IV SCH (09:10)
[2022-12-14] MEDS: METOPROLOL TART 12.5 MG PER 1/2 TAB PO SCH ×2 (09:13→21:11)
[2022-12-14] MEDS: OMEPRAZOLE 20MG CAP PO SCH ×2 (09:14→20:42)
[2022-12-14] MEDS ORDERED: MEPERIDINE 25 MG/ML 1ML VIAL IV PRN (10:05)
[2022-12-14] MEDS ORDERED: HYDROMORPHONE HCL 0.5 MG/ 0.5 ML SYRINGE IV PRN (10:05)
[2022-12-14] MEDS ORDERED: fentaNYL 100 MCG/2 ML INJECTION IV PRN (10:05)
[2022-12-14] MEDS ORDERED: ONDANSETRON 4MG 2ML VIAL IV PRN (10:05)
[2022-12-14] MEDS ORDERED: oxyCODONE 5MG TAB PO PRN (10:05)
[2022-12-14] MEDS ORDERED: ONDANSETRON 4MG 2ML VIAL As Ordered ONE (10:47)
[2022-12-14] MEDS ORDERED: ROCURONIUM BROMIDE 50MG/5ML VIAL As Ordered ONE (10:47)
[2022-12-14] MEDS ORDERED: propofoL 200 MG/20 ML VIAL As Ordered ONE (10:47)
[2022-12-14] MEDS ORDERED: LIDOCAINE 2% 100MG/5ML SDV (FOR ANES.) As Ordered ONE (10:47)
[2022-12-14] MEDS ORDERED: fentaNYL 100 MCG/2 ML INJECTION As Ordered ONE (10:47)
[2022-12-14] MEDS ORDERED: ceFAZolin 2 GM/D5W 50 ML IV BAG As Ordered ONE (10:48)
[2022-12-14] MEDS ORDERED: ACETAMINOPHEN 1000MG 100ML IV BAG As Ordered ONE (11:05)
[2022-12-14] MEDS ORDERED: SUGAMMADEX SODIUM 500 MG/5 ML VIAL (BRIDION) As Ordered ONE (11:05)
[2022-12-14] MEDS ORDERED: BISACODYL 5MG TAB PO ONE (14:00)
[2022-12-14] MEDS ORDERED: FUROSEMIDE 20MG/2ML VIAL IV ONE (14:00)
[2022-12-14] MEDS ORDERED: FUROSEMIDE 40MG/4ML VIAL IV ONE (14:00)
[2022-12-14] MEDS: ARIPiprazole 2 MG TAB PO SCH (14:08)
[2022-12-14] MEDS ORDERED: ceFAZolin SOD 2 GM in IV 1 EA IV SCH (20:00)
[2022-12-14] MEDS: VENLAFAXINE **XR** 75MG CAPSULE PO SCH (20:42)
[2022-12-14] MEDS: SIMVASTATIN 20 MG TAB PO SCH (20:42)
[2022-12-14] MEDS: SENNA 8.6 MG TAB (SENOKOT) PO SCH (20:43)
[2022-12-15] VITALS (10 sets, daily range): BP systolic 116–141; BP diastolic 62–80; TEMP 96.5–98.5; O2SAT 94–99
[2022-12-15] MEDS: IPRATROPIUM 0.02% SOLN 0.5MG 2.5ML NEB INH SCH ×4 (02:50→19:29)
[2022-12-15] MEDS: LEVALBUTEROL 1.25MG/3ML NEB SOLN INH SCH ×4 (02:50→19:28)
[2022-12-15] MEDS: methylPREDNISolone 40MG 1ML VIAL IV SCH ×2 (03:25→16:30)
[2022-12-15] MEDS: LEVOTHYROXINE 50MCG TABLET (0.05MG) PO SCH (05:59)
[2022-12-15] MEDS: INSULIN LISPRO (NovoLOG) PER UNIT SC SCH ×4 (06:00→23:45)
[2022-12-15 06:07] LABS: HEMATOCRIT 39.4 % (36.0-47.0); HEMOGLOBIN 12.4 g/dl (12.0-15.5); MEAN CORPUSCULAR HEMOGLOBIN 29.1 pg (27.0-33.0); MEAN CORPUSCULAR HGB CONC 31.5 g/dl (32.0-36.5); MEAN CORPUSCULAR VOLUME 92.5 fl (80.0-96.0); PLATELET COUNT, AUTOMATED 181 10^3/uL (150-450); RED BLOOD COUNT 4.26 10^6/uL (4.00-5.40); WHITE BLOOD COUNT 17.2 10^3/uL (4.0-10.0)
[2022-12-15 06:35] LABS: ALBUMIN 3.3 G/DL (3.2-5.2); ALKALINE PHOSPHATASE 93 U/L (46-116); ALT/SGPT 102 U/L (7.0-40); AST/SGOT 65 U/L (<34); BILIRUBIN,TOTAL 0.5 MG/DL (0.3-1.2); BLOOD UREA NITROGEN 23 MG/DL (9-23); CALCIUM LEVEL 8.8 MG/DL (8.3-10.6); CARBON DIOXIDE LEVEL 28 MMOL/L (20-31); CHLORIDE LEVEL 103 MMOL/L (98-107); CREATININE FOR GFR 0.63 MG/DL (0.55-1.30); GLOMERULAR FILTRATION RATE > 60.0 (>32); GLUCOSE, FASTING 159 MG/DL (74-106); POTASSIUM SERUM 4.1 MMOL/L (3.5-5.1); SODIUM LEVEL 137 MMOL/L (136-145); TOTAL PROTEIN 6.4 G/DL (5.7-8.2)
[2022-12-15] MEDS ORDERED: FUROSEMIDE 20MG/2ML VIAL IV ONE (07:00)
[2022-12-15] MEDS: SYMBICORT 80/4.5MCG INHALER 6GM INH SCH ×2 (08:33→19:28)
[2022-12-15] MEDS: cefTRIAXone SOD 1 GM in D5W MINI-BAG PLUS 50 ML IV SCH (08:56)
[2022-12-15] MEDS: IPRATROPIUM 0.03% NASAL SPRAY 30 ML (ATROVENT) SCH ×3 (09:00→23:09)
[2022-12-15] MEDS: POLYVINYL ALCOHOL OPHTH SOLN 15ML (LIQUITEARS) OU SCH ×2 (09:05→20:14)
[2022-12-15] MEDS: ARIPiprazole 2 MG TAB PO SCH (09:05)
[2022-12-15] MEDS: OMEPRAZOLE 20MG CAP PO SCH ×2 (09:06→20:13)
[2022-12-15] MEDS: TORSEMIDE 20 MG TAB PO SCH (09:06)
[2022-12-15] MEDS: LEVEMIR (INSULIN DETEMIR) 1 UNITS/0.01ML SC SCH (09:06)
[2022-12-15] MEDS: FERROUS GLUCONATE 324 MG TAB PO SCH (09:07)
[2022-12-15] MEDS: SPIRONOLACTONE 25 MG TAB PO SCH (09:07)
[2022-12-15] MEDS: DOCUSATE SODIUM 100MG CAPSULE PO SCH ×2 (09:07→20:13)
[2022-12-15] MEDS: METOPROLOL TART 12.5 MG PER 1/2 TAB PO SCH ×2 (09:12→20:13)
[2022-12-15] MEDS: SENNA 8.6 MG TAB (SENOKOT) PO SCH (20:12)
[2022-12-15] MEDS: VENLAFAXINE **XR** 75MG CAPSULE PO SCH (20:13)
[2022-12-15] MEDS: SIMVASTATIN 20 MG TAB PO SCH (20:13)
[2022-12-16] MEDS: IPRATROPIUM 0.02% SOLN 0.5MG 2.5ML NEB INH SCH ×4 (01:37→19:16)
[2022-12-16] MEDS: LEVALBUTEROL 1.25MG/3ML NEB SOLN INH SCH ×4 (01:37→19:15)
[2022-12-16 02:49] VITALS: O2SAT 97
[2022-12-16 04:00] VITALS: BP 134/83; TEMP 97.7; O2SAT 97
[2022-12-16] MEDS: methylPREDNISolone 40MG 1ML VIAL IV SCH (04:19)
[2022-12-16 05:33] LABS: HEMATOCRIT 39.8 % (36.0-47.0); HEMOGLOBIN 12.7 g/dl (12.0-15.5); MEAN CORPUSCULAR HEMOGLOBIN 29.2 pg (27.0-33.0); MEAN CORPUSCULAR HGB CONC 31.9 g/dl (32.0-36.5); MEAN CORPUSCULAR VOLUME 91.5 fl (80.0-96.0); PLATELET COUNT, AUTOMATED 213 10^3/uL (150-450); RED BLOOD COUNT 4.35 10^6/uL (4.00-5.40); WHITE BLOOD COUNT 15.2 10^3/uL (4.0-10.0)
[2022-12-16] MEDS: INSULIN LISPRO (NovoLOG) PER UNIT SC SCH ×3 (05:39→17:16)
[2022-12-16] MEDS: LEVOTHYROXINE 50MCG TABLET (0.05MG) PO SCH (05:39)
[2022-12-16 05:54] LABS: ALBUMIN 3.2 G/DL (3.2-5.2); ALKALINE PHOSPHATASE 93 U/L (46-116); ALT/SGPT 70 U/L (7.0-40); AST/SGOT 24 U/L (<34); BILIRUBIN,TOTAL 0.4 MG/DL (0.3-1.2); BLOOD UREA NITROGEN 33 MG/DL (9-23); CALCIUM LEVEL 9.4 MG/DL (8.3-10.6); CARBON DIOXIDE LEVEL 29 MMOL/L (20-31); CHLORIDE LEVEL 101 MMOL/L (98-107); GLOMERULAR FILTRATION RATE > 60.0 (>32); GLUCOSE, FASTING 141 MG/DL (74-106); POTASSIUM SERUM 3.6 MMOL/L (3.5-5.1); SODIUM LEVEL 138 MMOL/L (136-145); TOTAL PROTEIN 6.6 G/DL (5.7-8.2)
[2022-12-16 08:00] VITALS: BP 126/55; TEMP 97.8; O2SAT 94
[2022-12-16] MEDS: LEVEMIR (INSULIN DETEMIR) 1 UNITS/0.01ML SC SCH (08:36)
[2022-12-16] MEDS: OMEPRAZOLE 20MG CAP PO SCH ×2 (08:37→20:37)
[2022-12-16] MEDS: SPIRONOLACTONE 25 MG TAB PO SCH (08:37)
[2022-12-16] MEDS: METAMUCIL (PSYLLIUM) PACKET PO SCH (08:37)
[2022-12-16] MEDS: DOCUSATE SODIUM 100MG CAPSULE PO SCH ×2 (08:37→20:38)
[2022-12-16] MEDS: ARIPiprazole 2 MG TAB PO SCH (08:37)
[2022-12-16] MEDS: TORSEMIDE 20 MG TAB PO SCH (08:37)
[2022-12-16] MEDS: METOPROLOL TART 12.5 MG PER 1/2 TAB PO SCH ×2 (08:37→20:40)
[2022-12-16] MEDS: POLYVINYL ALCOHOL OPHTH SOLN 15ML (LIQUITEARS) OU SCH ×2 (08:38→20:41)
[2022-12-16] MEDS: IPRATROPIUM 0.03% NASAL SPRAY 30 ML (ATROVENT) SCH ×2 (08:38→20:41)
[2022-12-16] MEDS: SYMBICORT 80/4.5MCG INHALER 6GM INH SCH ×2 (09:04→19:15)
[2022-12-16 12:00] VITALS: BP 122/80; TEMP 97.9; O2SAT 99
[2022-12-16] MEDS: APIXABAN 5 MG TAB (ELIQUIS) PO SCH ×2 (12:29→20:40)
[2022-12-16] MEDS ORDERED: LEVEMIR (INSULIN DETEMIR) 1 UNITS/0.01ML SC ONE (12:30)
[2022-12-16] MEDS: predniSONE 20 MG TAB PO SCH (13:25)
[2022-12-16 20:00] VITALS: BP 136/60; TEMP 96.4; O2SAT 93
[2022-12-16] MEDS: SIMVASTATIN 20 MG TAB PO SCH (20:38)
[2022-12-16] MEDS: SENNA 8.6 MG TAB (SENOKOT) PO SCH (20:40)
[2022-12-16] MEDS: VENLAFAXINE **XR** 75MG CAPSULE PO SCH (20:40)
[2022-12-16 23:53] VITALS: BP 160/85; TEMP 97.8; O2SAT 96
[2022-12-17 00:38] LABS: VENOUS BASE EXCESS 4.6 (-2.0-2.0); VENOUS HCO3 29.8 MMOL/L (23.0-27.0); VENOUS O2 SATURATION 99.2 % (60.0-80.0); VENOUS PARTIAL PRESSURE CO2 46.6 mmHg (38.0-50.0); VENOUS PARTIAL PRESSURE O2 209.3 mmHg (30.0-50.0); VENOUS PH 7.424 UNITS (7.330-7.430); VENOUS STANDARD HCO3 28.6 MMOL/L; VENOUS TOTAL CO2 31.3 MMOL/L (24.0-28.0)
[2022-12-17] MEDS: LEVALBUTEROL 1.25MG/3ML NEB SOLN INH SCH ×4 (01:06→19:16)
[2022-12-17] MEDS: IPRATROPIUM 0.02% SOLN 0.5MG 2.5ML NEB INH SCH ×4 (01:07→19:17)
[2022-12-17] MEDS: INSULIN LISPRO (NovoLOG) PER UNIT SC SCH ×4 (01:41→17:50)
[2022-12-17 03:56] VITALS: BP 140/82; TEMP 97; O2SAT 100
[2022-12-17 05:45] LABS: HEMATOCRIT 40.3 % (36.0-47.0); HEMOGLOBIN 12.8 g/dl (12.0-15.5); MEAN CORPUSCULAR HEMOGLOBIN 29.2 pg (27.0-33.0); MEAN CORPUSCULAR HGB CONC 31.8 g/dl (32.0-36.5); MEAN CORPUSCULAR VOLUME 91.8 fl (80.0-96.0); PLATELET COUNT, AUTOMATED 203 10^3/uL (150-450); RED BLOOD COUNT 4.39 10^6/uL (4.00-5.40); WHITE BLOOD COUNT 14.6 10^3/uL (4.0-10.0)
[2022-12-17 06:08] LABS: ALBUMIN 3.1 G/DL (3.2-5.2); ALKALINE PHOSPHATASE 87 U/L (46-116); ALT/SGPT 57 U/L (7.0-40); AST/SGOT 17 U/L (<34); BILIRUBIN,TOTAL 0.5 MG/DL (0.3-1.2); BLOOD UREA NITROGEN 27 MG/DL (9-23); CALCIUM LEVEL 9.3 MG/DL (8.3-10.6); CARBON DIOXIDE LEVEL 33 MMOL/L (20-31); CHLORIDE LEVEL 100 MMOL/L (98-107); CREATININE FOR GFR 0.72 MG/DL (0.55-1.30); GLOMERULAR FILTRATION RATE > 60.0 (>32); GLUCOSE, FASTING 110 MG/DL (74-106); POTASSIUM SERUM 3.9 MMOL/L (3.5-5.1); SODIUM LEVEL 140 MMOL/L (136-145); TOTAL PROTEIN 6.3 G/DL (5.7-8.2)
[2022-12-17] MEDS: LEVOTHYROXINE 50MCG TABLET (0.05MG) PO SCH (06:32)
[2022-12-17 08:33] VITALS: BP 152/78; TEMP 97.1; O2SAT 96
[2022-12-17] MEDS: SYMBICORT 80/4.5MCG INHALER 6GM INH SCH ×2 (08:38→19:16)
[2022-12-17] MEDS: SPIRONOLACTONE 25 MG TAB PO SCH (09:16)
[2022-12-17] MEDS: DOCUSATE SODIUM 100MG CAPSULE PO SCH ×2 (09:16→20:32)
[2022-12-17] MEDS: ARIPiprazole 2 MG TAB PO SCH (09:16)
[2022-12-17] MEDS: OMEPRAZOLE 20MG CAP PO SCH ×2 (09:16→20:32)
[2022-12-17] MEDS: TORSEMIDE 20 MG TAB PO SCH (09:17)
[2022-12-17] MEDS: LEVEMIR (INSULIN DETEMIR) 1 UNITS/0.01ML SC SCH (09:17)
[2022-12-17] MEDS: FERROUS GLUCONATE 324 MG TAB PO SCH (09:17)
[2022-12-17] MEDS: METOPROLOL TART 12.5 MG PER 1/2 TAB PO SCH ×2 (09:17→20:32)
[2022-12-17] MEDS: APIXABAN 5 MG TAB (ELIQUIS) PO SCH ×2 (09:17→20:32)
[2022-12-17] MEDS: predniSONE 20 MG TAB PO SCH (09:17)
[2022-12-17] MEDS: IPRATROPIUM 0.03% NASAL SPRAY 30 ML (ATROVENT) SCH ×2 (09:18→20:33)
[2022-12-17] MEDS: POLYVINYL ALCOHOL OPHTH SOLN 15ML (LIQUITEARS) OU SCH ×2 (09:18→20:33)
[2022-12-17 19:42] VITALS: BP 134/80; TEMP 97; O2SAT 92
[2022-12-17] MEDS: SENNA 8.6 MG TAB (SENOKOT) PO SCH (20:31)
[2022-12-17] MEDS: SIMVASTATIN 20 MG TAB PO SCH (20:32)
[2022-12-17] MEDS: VENLAFAXINE **XR** 75MG CAPSULE PO SCH (20:32)
[2022-12-17] MEDS ORDERED: INSULIN LISPRO (NovoLOG) PER UNIT SC SCH (21:00)
[2022-12-18] MEDS: LEVALBUTEROL 1.25MG/3ML NEB SOLN INH SCH ×2 (01:24→08:13)
[2022-12-18] MEDS: IPRATROPIUM 0.02% SOLN 0.5MG 2.5ML NEB INH SCH ×2 (01:24→08:13)
[2022-12-18] MEDS: LEVOTHYROXINE 50MCG TABLET (0.05MG) PO SCH (05:04)
[2022-12-18 06:15] LABS: HEMATOCRIT 43.7 % (36.0-47.0); HEMOGLOBIN 13.6 g/dl (12.0-15.5); MEAN CORPUSCULAR HEMOGLOBIN 28.6 pg (27.0-33.0); MEAN CORPUSCULAR HGB CONC 31.1 g/dl (32.0-36.5); MEAN CORPUSCULAR VOLUME 91.8 fl (80.0-96.0); PLATELET COUNT, AUTOMATED 233 10^3/uL (150-450); RED BLOOD COUNT 4.76 10^6/uL (4.00-5.40); WHITE BLOOD COUNT 14.5 10^3/uL (4.0-10.0)
[2022-12-18 06:57] LABS: ALBUMIN 3.1 G/DL (3.2-5.2); ALKALINE PHOSPHATASE 85 U/L (46-116); ALT/SGPT 57 U/L (7.0-40); AST/SGOT 16 U/L (<34); BILIRUBIN,TOTAL 0.5 MG/DL (0.3-1.2); BLOOD UREA NITROGEN 29 MG/DL (9-23); CALCIUM LEVEL 9.5 MG/DL (8.3-10.6); CARBON DIOXIDE LEVEL 35 MMOL/L (20-31); CHLORIDE LEVEL 99 MMOL/L (98-107); CREATININE FOR GFR 0.74 MG/DL (0.55-1.30); GLOMERULAR FILTRATION RATE > 60.0 (>32); GLUCOSE, FASTING 100 MG/DL (74-106); POTASSIUM SERUM 3.7 MMOL/L (3.5-5.1); SODIUM LEVEL 142 MMOL/L (136-145); TOTAL PROTEIN 6.3 G/DL (5.7-8.2)
[2022-12-18] MEDS: INSULIN LISPRO (NovoLOG) PER UNIT SC SCH ×2 (07:30→12:55)
[2022-12-18 07:53] VITALS: BP 130/71; TEMP 97.8; O2SAT 94
[2022-12-18] MEDS: SYMBICORT 80/4.5MCG INHALER 6GM INH SCH (08:21)
[2022-12-18] MEDS: LEVEMIR (INSULIN DETEMIR) 1 UNITS/0.01ML SC SCH (09:14)
[2022-12-18] MEDS: METAMUCIL (PSYLLIUM) PACKET PO SCH (09:14)
[2022-12-18 09:15] VITALS: BP 130/71
[2022-12-18] MEDS: TORSEMIDE 20 MG TAB PO SCH (09:15)
[2022-12-18] MEDS: APIXABAN 5 MG TAB (ELIQUIS) PO SCH (09:15)
[2022-12-18] MEDS: SPIRONOLACTONE 25 MG TAB PO SCH (09:15)
[2022-12-18] MEDS: ARIPiprazole 2 MG TAB PO SCH (09:15)
[2022-12-18] MEDS: DOCUSATE SODIUM 100MG CAPSULE PO SCH (09:15)
[2022-12-18] MEDS: OMEPRAZOLE 20MG CAP PO SCH (09:15)
[2022-12-18] MEDS: METOPROLOL TART 12.5 MG PER 1/2 TAB PO SCH (09:15)
[2022-12-18] MEDS: IPRATROPIUM 0.03% NASAL SPRAY 30 ML (ATROVENT) SCH (09:16)
[2022-12-18] MEDS: predniSONE 20 MG TAB PO SCH (09:16)
[2022-12-18] MEDS: POLYVINYL ALCOHOL OPHTH SOLN 15ML (LIQUITEARS) OU SCH (09:16)
[2022-12-18] MEDS ORDERED: LACTULOSE 20GM/30ML SYRUP UDC PO ONE (11:30)
[2022-12-18] MEDS ORDERED: MIRALAX *UNIT DOSE* 17GM PACKET PO PRN (11:30)
[2022-12-18] MEDS ORDERED: INSUHUMDS SC ×2 (12:57)
[2022-12-18] MEDS ORDERED: MIRA1POW3 PO (12:57)
[2022-12-18] MEDS ORDERED: SENN-188 PO (12:57)
[2022-12-18] MEDS ORDERED: METO1TAB87 PO (12:57)
[2022-12-18] MEDS ORDERED: METF500T13 PO (12:57)
== END 2022-12-18 13:42 | DRG 480 ==
LOC: EDBD 17:46 → M ED 17:46 → M ED INP 21:30 → ENRESERV 12-13 11:20 → M PCU 12-13 11:41
PROVIDERS: ADMIT Internal Medicine; ATTEND Internal Medicine
PROC: 0SH934Z Insertion of Internal Fixation Device into Right Hip Joint, Percutaneous Approach (ICD-10-PCS; principal; 2022-12-14 10:30)
DX: S72.011A Unspecified intracapsular fracture of right femur, initial encounter for closed fracture (principal); I50.33 Acute on chronic diastolic (congestive) heart failure; J45.901 Unspecified asthma with (acute) exacerbation; J98.11 Atelectasis; F05 Delirium due to known physiological condition; I48.91 Unspecified atrial fibrillation; D50.9 Iron deficiency anemia, unspecified; I11.0 Hypertensive heart disease with heart failure; K21.9 Gastro-esophageal reflux disease without esophagitis; E11.9 Type 2 diabetes mellitus without complications; E03.9 Hypothyroidism, unspecified; E78.5 Hyperlipidemia, unspecified; D72.829 Elevated white blood cell count, unspecified; Z79.899 Other long term (current) drug therapy; Z79.4 Long term (current) use of insulin; Z79.01 Long term (current) use of anticoagulants; W06.XXXA Fall from bed, initial encounter; Y92.013 Bedroom of single-family (private) house as the place of occurrence of the external cause; K59.00 Constipation, unspecified; K22.70 Barrett's esophagus without dysplasia; Z91.048 Other nonmedicinal substance allergy status; H35.30 Unspecified macular degeneration; Z66 Do not resuscitate

== ENCOUNTER → 2022-12-12 | Outpatient (REF) | payer MEDICARE, BC ==
[~2022-12-12] MED LIST changes: +ALBU0.63 INH; +ARIP1TAB4 PO; +BISA10SU27 PR; +CARB15DR51 AU; +CHOL1250 PO; +CLAR10CA3 PO; +DOCU100C17 PO; +FLEEENE12 PR; +IPRA3SP; +LEVO50TA5 PO; +LORA-674 PO; +MILKSUS3 PO; +PEG OU; +PRES10CA2 PO; +SYMB80INH INH; +TORS20TA2 PO; +TROS20TA3 PO
== END ==
PROVIDERS: ATTEND Internal Medicine
DX: R05.9 Cough, unspecified (principal)

== ENCOUNTER → 2022-12-15 | Outpatient (REF) | payer MEDICARE, BC ==
[~2022-12-15] MED LIST changes: +ALBU0.63 INH; +ARIP1TAB4 PO; +BISA10SU27 PR; +CARB15DR51 AU; +CHOL1250 PO; +CLAR10CA3 PO; +DOCU100C17 PO; +FLEEENE12 PR; +INSUHUMDS SC; +IPRA3SP; +LEVO50TA5 PO; +LORA-674 PO; +METF500T13 PO; +MILKSUS3 PO; +MIRA1POW3 PO; +PEG OU; +PRES10CA2 PO; +SENN-188 PO; +SYMB80INH INH; +TORS20TA2 PO; +TROS20TA3 PO
== END ==
PROVIDERS: ATTEND Physician Assistant
DX: J18.9 Pneumonia, unspecified organism (principal); Z53.8 Procedure and treatment not carried out for other reasons

== ENCOUNTER → 2022-12-15 | Outpatient (REF) | payer MEDICARE, BC | PROVIDERS: ATTEND Physician Assistant | DX: J18.9 Pneumonia, unspecified organism (principal); Z53.8 Procedure and treatment not carried out for other reasons ==

== ENCOUNTER → 2022-12-20 | Outpatient (REF) ==
[2022-12-20 10:17] LABS: HEMATOCRIT 46.2 % (36.0-47.0); HEMOGLOBIN 15.1 g/dl (12.0-15.5); MEAN CORPUSCULAR HEMOGLOBIN 29.3 pg (27.0-33.0); MEAN CORPUSCULAR HGB CONC 32.7 g/dl (32.0-36.5); MEAN CORPUSCULAR VOLUME 89.7 fl (80.0-96.0); PLATELET COUNT, AUTOMATED 262 10^3/uL (150-450); RED BLOOD COUNT 5.15 10^6/uL (4.00-5.40); WHITE BLOOD COUNT 19.2 10^3/uL (4.0-10.0)
[2022-12-20 10:49] LABS: ALBUMIN 3.4 G/DL (3.2-5.2); ALKALINE PHOSPHATASE 97 U/L (46-116); ALT/SGPT 52 U/L (7.0-40); AST/SGOT 17 U/L (<34); BILIRUBIN,DIRECT 0.2 MG/DL (<0.4); BILIRUBIN,TOTAL 0.7 MG/DL (0.3-1.2); BLOOD UREA NITROGEN 29 MG/DL (9-23); CALCIUM LEVEL 9.5 MG/DL (8.3-10.6); CARBON DIOXIDE LEVEL 27 MMOL/L (20-31); CHLORIDE LEVEL 96 MMOL/L (98-107); CREATININE FOR GFR 0.79 MG/DL (0.55-1.30); GLOMERULAR FILTRATION RATE > 60.0 (>32); GLUCOSE, FASTING 175 MG/DL (74-106); POTASSIUM SERUM 3.3 MMOL/L (3.5-5.1); SODIUM LEVEL 133 MMOL/L (136-145); THYROID STIMULATING HORMONE 2.426 uIU/ML (0.55-4.78); TOTAL PROTEIN 6.8 G/DL (5.7-8.2); VITAMIN B12 LEVEL 313 PG/ML (211-911)
== END ==
PROVIDERS: ATTEND Physician Assistant
DX: I10 Essential (primary) hypertension (principal)

== ENCOUNTER → 2022-12-23 | Outpatient (REF) | payer MEDICARE, BC | PROVIDERS: ATTEND Physician Assistant | DX: I10 Essential (primary) hypertension (principal); Z53.8 Procedure and treatment not carried out for other reasons ==

== ENCOUNTER → 2022-12-27 | Outpatient (REF) ==
[2022-12-27 08:35] LABS: HEMATOCRIT 44.4 % (36.0-47.0); HEMOGLOBIN 13.9 g/dl (12.0-15.5); MEAN CORPUSCULAR HEMOGLOBIN 28.7 pg (27.0-33.0); MEAN CORPUSCULAR HGB CONC 31.3 g/dl (32.0-36.5); MEAN CORPUSCULAR VOLUME 91.7 fl (80.0-96.0); PLATELET COUNT, AUTOMATED 236 10^3/uL (150-450); RED BLOOD COUNT 4.84 10^6/uL (4.00-5.40); WHITE BLOOD COUNT 13.2 10^3/uL (4.0-10.0)
[2022-12-27 08:55] LABS: BLOOD UREA NITROGEN 16 MG/DL (9-23); CALCIUM LEVEL 9.7 MG/DL (8.3-10.6); CARBON DIOXIDE LEVEL 27 MMOL/L (20-31); CHLORIDE LEVEL 100 MMOL/L (98-107); CREATININE FOR GFR 0.67 MG/DL (0.55-1.30); GLOMERULAR FILTRATION RATE > 60.0 (>32); GLUCOSE, FASTING 116 MG/DL (74-106); SODIUM LEVEL 137 MMOL/L (136-145)
== END ==
PROVIDERS: ATTEND Physician Assistant
DX: I10 Essential (primary) hypertension (principal)

== ENCOUNTER → 2023-02-01 | Outpatient (CLI) | payer MEDICARE, BC | LOC: M SOG 13:55 | PROVIDERS: ATTEND Orthopaedic Surgery | DX: S72.001D Fracture of unspecified part of neck of right femur, subsequent encounter for closed fracture with routine healing (principal); Z47.89 Encounter for other orthopedic aftercare; M16.0 Bilateral primary osteoarthritis of hip ==

== ENCOUNTER → 2023-02-19 | Outpatient (REF) | payer MEDICARE, BC ==
[~2023-02-19] MED LIST changes: +LORA-1041 PO; -LORA-674 PO; -MIRT-62 PO; +MIRT-88 PO
== END ==
PROVIDERS: ATTEND Physician Assistant
DX: R05.9 Cough, unspecified (principal)

== ENCOUNTER → 2023-02-20 | Outpatient (REF) | payer MEDICARE, BC | PROVIDERS: ATTEND Internal Medicine | DX: R05.9 Cough, unspecified (principal); K44.9 Diaphragmatic hernia without obstruction or gangrene ==

== ENCOUNTER → 2023-03-16 | Outpatient (CLI) | payer MEDICARE, BC ==
[~2023-03-16] MED LIST changes: -CEFD300C41 PO; +CEFD300C42 PO
== END ==
LOC: M RAD 13:59
PROVIDERS: ATTEND Internal Medicine
DX: R63.4 Abnormal weight loss (principal); K44.9 Diaphragmatic hernia without obstruction or gangrene

== ENCOUNTER → 2023-03-16 | Outpatient (REF) | payer MEDICARE, BC ==
[2023-03-16 15:43] LABS: BASO % 0.3 % (0.0-1.0); EOS # 0.3 10^3/uL (0.0-0.5); EOS % 2.3 % (0.0-3.0); HEMATOCRIT 39.8 % (36.0-47.0); HEMOGLOBIN 12.6 g/dl (12.0-15.5); LYMPH # 2.2 10^3/uL (1.5-5.0); LYMPH % 19.8 % (24.0-44.0); MEAN CORPUSCULAR HEMOGLOBIN 29.4 pg (27.0-33.0); MEAN CORPUSCULAR HGB CONC 31.7 g/dl (32.0-36.5); MEAN CORPUSCULAR VOLUME 92.8 fl (80.0-96.0); MONO # 0.8 10^3/uL (0.0-0.8); MONO % 7.4 % (2.0-8.0); NEUTROPHILS # 7.5 10^3/uL (1.5-8.5); NEUTROPHILS % 69.3 % (36.0-66.0); PLATELET COUNT, AUTOMATED 226 10^3/uL (150-450); RED BLOOD COUNT 4.29 10^6/uL (4.00-5.40); WHITE BLOOD COUNT 10.9 10^3/uL (4.0-10.0)
[2023-03-16 16:01] LABS: ALBUMIN 3.3 G/DL (3.2-5.2); ALKALINE PHOSPHATASE 73 U/L (46-116); ALT/SGPT 18 U/L (7.0-40); AST/SGOT 17 U/L (<34); BILIRUBIN,DIRECT < 0.1 MG/DL (<0.4); BILIRUBIN,TOTAL 0.4 MG/DL (0.3-1.2); TOTAL PROTEIN 6.4 G/DL (5.7-8.2)
[2023-03-16 16:02] LABS: THYROXINE (T4) 10.8 UG/DL (4.5-10.9)
[2023-03-16 16:03] LABS: FREE T3 2.6 PG/ML (2.3-4.2); THYROID STIMULATING HORMONE 1.933 uIU/ML (0.55-4.78)
== END ==
PROVIDERS: ATTEND Physician Assistant
DX: R63.4 Abnormal weight loss (principal); K44.9 Diaphragmatic hernia without obstruction or gangrene

== ENCOUNTER → 2023-03-30 | Outpatient (REF) | payer MEDICARE, BC | PROVIDERS: ATTEND Physician Assistant | DX: J00 Acute nasopharyngitis [common cold] (principal); Z20.822 Contact with and (suspected) exposure to COVID-19 ==

== ENCOUNTER → 2023-04-11 | Outpatient (REF) | payer MEDICARE, BC ==
[2023-04-11 11:24] LABS: HEMATOCRIT 37.8 % (36.0-47.0); HEMOGLOBIN 12.1 g/dl (12.0-15.5); MEAN CORPUSCULAR HEMOGLOBIN 29.7 pg (27.0-33.0); MEAN CORPUSCULAR VOLUME 92.9 fl (80.0-96.0); PLATELET COUNT, AUTOMATED 284 10^3/uL (150-450); RED BLOOD COUNT 4.07 10^6/uL (4.00-5.40); WHITE BLOOD COUNT 10.2 10^3/uL (4.0-10.0)
[2023-04-11 11:48] LABS: BLOOD UREA NITROGEN 14 MG/DL (9-23); CALCIUM LEVEL 9.7 MG/DL (8.3-10.6); CARBON DIOXIDE LEVEL 26 MMOL/L (20-31); CHLORIDE LEVEL 99 MMOL/L (98-107); GLOMERULAR FILTRATION RATE > 60.0 (>32); GLUCOSE, FASTING 231 MG/DL (74-106); POTASSIUM SERUM 4.4 MMOL/L (3.5-5.1); SODIUM LEVEL 134 MMOL/L (136-145)
== END ==
PROVIDERS: ATTEND Physician Assistant
DX: I10 Essential (primary) hypertension (principal)

== ENCOUNTER → 2023-05-18 | Outpatient (REF) | payer MEDICARE, BC ==
[~2023-05-18] MED LIST changes: +CEFD1CAP9 PO; -CEFD300C42 PO
== END ==
PROVIDERS: ATTEND Internal Medicine
DX: J44.9 Chronic obstructive pulmonary disease, unspecified (principal)

== ENCOUNTER → 2023-06-11 | Outpatient (REF) | payer MEDICARE, BC ==
[2023-06-11 10:28] LABS: ALBUMIN 3.5 G/DL (3.2-5.2); BILIRUBIN,DIRECT 0.2 MG/DL (<0.4); BILIRUBIN,TOTAL 0.5 MG/DL (0.3-1.2); TOTAL 25(OH) VITAMIN D 45.8 NG/ML (20.0-100.0); TOTAL PROTEIN 6.4 G/DL (5.7-8.2)
[2023-06-11 10:29] LABS: THYROID STIMULATING HORMONE 2.979 uIU/ML (0.55-4.78)
== END ==
PROVIDERS: ATTEND Internal Medicine
DX: E03.9 Hypothyroidism, unspecified (principal); Z79.899 Other long term (current) drug therapy

== ENCOUNTER → 2023-07-09 | Outpatient (REF) | payer MEDICARE, BC ==
[2023-07-09 11:02] LABS: HEMATOCRIT 42.6 % (36.0-47.0); HEMOGLOBIN 13.5 g/dl (12.0-15.5); MEAN CORPUSCULAR HEMOGLOBIN 29.7 pg (27.0-33.0); MEAN CORPUSCULAR HGB CONC 31.7 g/dl (32.0-36.5); MEAN CORPUSCULAR VOLUME 93.8 fl (80.0-96.0); PLATELET COUNT, AUTOMATED 271 10^3/uL (150-450); RED BLOOD COUNT 4.54 10^6/uL (4.00-5.40); WHITE BLOOD COUNT 12.4 10^3/uL (4.0-10.0)
[2023-07-09 11:27] LABS: BLOOD UREA NITROGEN 14 MG/DL (9-23); CALCIUM LEVEL 9.9 MG/DL (8.3-10.6); CARBON DIOXIDE LEVEL 28 MMOL/L (20-31); CHLORIDE LEVEL 99 MMOL/L (98-107); CREATININE FOR GFR 0.93 MG/DL (0.55-1.30); GLOMERULAR FILTRATION RATE > 60.0 (>32); GLUCOSE, FASTING 110 MG/DL (74-106); POTASSIUM SERUM 4.3 MMOL/L (3.5-5.1); SODIUM LEVEL 135 MMOL/L (136-145)
== END ==
PROVIDERS: ATTEND Internal Medicine
DX: I10 Essential (primary) hypertension (principal)

== ENCOUNTER → 2023-07-19 | Outpatient (REF) | payer BC, MEDICARE ==
[~2023-07-19] MED LIST changes: -MIRA1POW3 PO; +MIRA33506 PO
== END ==
PROVIDERS: ATTEND Internal Medicine
DX: I27.20 Pulmonary hypertension, unspecified (principal); K44.9 Diaphragmatic hernia without obstruction or gangrene

== ENCOUNTER → 2023-07-19 | Outpatient (REF) | payer MEDICARE, BC | PROVIDERS: ATTEND Physician Assistant | DX: R05.9 Cough, unspecified (principal) ==

== ENCOUNTER → 2023-07-26 | Outpatient (REF) | payer MEDICARE | PROVIDERS: ATTEND Internal Medicine | DX: J98.11 Atelectasis (principal); K44.9 Diaphragmatic hernia without obstruction or gangrene; R05.9 Cough, unspecified; Z79.899 Other long term (current) drug therapy ==

== ENCOUNTER → 2023-07-26 | Outpatient (REF) | payer MEDICARE ==
[2023-07-26 18:13] LABS: BASO % 0.2 % (0.0-1.0); HEMATOCRIT 39.3 % (36.0-47.0); HEMOGLOBIN 12.8 g/dl (12.0-15.5); LYMPH # 1.6 10^3/uL (1.5-5.0); MEAN CORPUSCULAR HGB CONC 32.6 g/dl (32.0-36.5); MONO # 0.4 10^3/uL (0.0-0.8); MONO % 2.9 % (2.0-8.0); NEUTROPHILS # 12.3 10^3/uL (1.5-8.5); NEUTROPHILS % 84.4 % (36.0-66.0); PLATELET COUNT, AUTOMATED 304 10^3/uL (150-450); RED BLOOD COUNT 4.27 10^6/uL (4.00-5.40); WHITE BLOOD COUNT 14.5 10^3/uL (4.0-10.0)
[2023-07-26 18:40] LABS: CALCIUM LEVEL 9.7 MG/DL (8.3-10.6); GLOMERULAR FILTRATION RATE 55.6 (>32); POTASSIUM SERUM 4.9 MMOL/L (3.5-5.1)
== END ==
PROVIDERS: ATTEND Physician Assistant
DX: R05.9 Cough, unspecified (principal); Z79.899 Other long term (current) drug therapy

== ENCOUNTER → 2023-08-20 | Outpatient (REF) | payer MEDICARE, BC | PROVIDERS: ATTEND Physician Assistant | DX: R19.7 Diarrhea, unspecified (principal); Z53.8 Procedure and treatment not carried out for other reasons ==

== ENCOUNTER → 2023-08-22 | Outpatient (REF) | payer MEDICARE, BC ==
[2023-08-22 12:36] LABS: HEMOGLOBIN A1c 6.4 % (4.0-6.0)
[2023-08-22 16:04] LABS: BASO % 0.3 % (0.0-1.0); EOS # 0.3 10^3/uL (0.0-0.5); EOS % 2.6 % (0.0-3.0); HEMOGLOBIN 12.5 g/dl (12.0-15.5); LYMPH % 17.6 % (24.0-44.0); MEAN CORPUSCULAR HGB CONC 32.1 g/dl (32.0-36.5); MEAN CORPUSCULAR VOLUME 93.5 fl (80.0-96.0); MONO # 0.9 10^3/uL (0.0-0.8); MONO % 7.7 % (2.0-8.0); NEUTROPHILS # 8.2 10^3/uL (1.5-8.5); NEUTROPHILS % 70.9 % (36.0-66.0); PLATELET COUNT, AUTOMATED 333 10^3/uL (150-450); RED BLOOD COUNT 4.17 10^6/uL (4.00-5.40); WHITE BLOOD COUNT 11.6 10^3/uL (4.0-10.0)
[2023-08-22 16:39] LABS: CALCIUM LEVEL 9.4 MG/DL (8.3-10.6); CREATININE FOR GFR 0.96 MG/DL (0.55-1.30); GLOMERULAR FILTRATION RATE 58.3 (>32); POTASSIUM SERUM 5.5 MMOL/L (3.5-5.1)
== END ==
PROVIDERS: ATTEND Physician Assistant
DX: E11.9 Type 2 diabetes mellitus without complications (principal); R19.7 Diarrhea, unspecified

== ENCOUNTER → 2023-10-10 | Outpatient (REF) | payer MEDICARE, BC ==
[2023-10-10 10:44] LABS: HEMATOCRIT 36.5 % (36.0-47.0); HEMOGLOBIN 11.7 g/dl (12.0-15.5); MEAN CORPUSCULAR HEMOGLOBIN 29.7 pg (27.0-33.0); MEAN CORPUSCULAR HGB CONC 32.1 g/dl (32.0-36.5); MEAN CORPUSCULAR VOLUME 92.6 fl (80.0-96.0); PLATELET COUNT, AUTOMATED 291 10^3/uL (150-450); RED BLOOD COUNT 3.94 10^6/uL (4.00-5.40); WHITE BLOOD COUNT 11.3 10^3/uL (4.0-10.0)
[2023-10-10 11:09] LABS: CALCIUM LEVEL 9.7 MG/DL (8.3-10.6); CREATININE FOR GFR 1.29 MG/DL (0.55-1.30); GLOMERULAR FILTRATION RATE 41.4 (>32); POTASSIUM SERUM 4.6 MMOL/L (3.5-5.1)
== END ==
PROVIDERS: ATTEND Internal Medicine
DX: I10 Essential (primary) hypertension (principal)

== ENCOUNTER → 2023-11-23 | Outpatient (REF) | payer MEDICARE, BC | PROVIDERS: ATTEND Internal Medicine | DX: R63.4 Abnormal weight loss (principal); K44.9 Diaphragmatic hernia without obstruction or gangrene ==

== ENCOUNTER → 2023-11-26 | Outpatient (REF) | payer MEDICARE, BC ==
[2023-11-26 09:22] LABS: HEMATOCRIT 36.2 % (36.0-47.0); HEMOGLOBIN 11.7 g/dl (12.0-15.5); MEAN CORPUSCULAR HEMOGLOBIN 29.8 pg (27.0-33.0); MEAN CORPUSCULAR HGB CONC 32.3 g/dl (32.0-36.5); MEAN CORPUSCULAR VOLUME 92.3 fl (80.0-96.0); PLATELET COUNT, AUTOMATED 299 10^3/uL (150-450); RED BLOOD COUNT 3.92 10^6/uL (4.00-5.40)
[2023-11-26 09:40] LABS: ALBUMIN 3.5 G/DL (3.2-5.2); BILIRUBIN,DIRECT 0.1 MG/DL (<0.4); BILIRUBIN,TOTAL 0.4 MG/DL (0.3-1.2); CREATININE FOR GFR 0.99 MG/DL (0.55-1.30); GLOMERULAR FILTRATION RATE 56.2 (>32); POTASSIUM SERUM 4.3 MMOL/L (3.5-5.1)
[2023-11-26 09:42] LABS: THYROID STIMULATING HORMONE 2.336 uIU/ML (0.55-4.78); THYROXINE (T4) 9.8 UG/DL (4.5-10.9)
== END ==
PROVIDERS: ATTEND Physician Assistant
DX: R63.4 Abnormal weight loss (principal)